=== PATIENT | female | born 1955 | race Caucasian/White ===

== ENCOUNTER 2023-05-12 14:33 | Emergency (ER) | payer OTHER, MEDICAID ==
[~2023-05-12] VITALS: Ht 170.2 cm; Wt 148.6 kg
[2023-05-12 15:25] LABS: Basophils # (auto) 0.1 10 ^3/uL (0-0.2); Basophils % (auto) 0.8 % (0.0-2.0); Eosinophils # (auto) 0.1 10 ^3/uL (0-0.8); Eosinophils % (auto) 1.5 % (0.0-7.0); Hematocrit 46.2 % (36.0-46.0); Hemoglobin 15.2 g/dL (12.2-16.2); Lymphocytes # (auto) 1.6 10 ^3/uL (0.4-5.4); Lymphocytes % (auto) 19.8 % (10.0-50.0); Mean Corpuscular Hemoglobin 29.3 pg (28.0-32.0); Mean Corpuscular Hgb Conc. 32.9 g/dL (32.0-36.0); Mean Corpuscular Volume 89.2 fL (80.0-100.0); Monocytes # (auto) 0.4 10 ^3/uL (0-1.3); Monocytes % (auto) 5.4 % (0.0-12.0); Neutrophils # (auto) 5.8 10 ^3/uL (1.6-8.6); Neutrophils % (auto) 72.5 % (37.0-80.0); Nucleated Red Blood Cells % 0.1 %; Red Blood Cells 5.19 10^6/uL (4.0-5.20); Red Cell Distribution Width 13.6 % (11.8-14.3)
[2023-05-12 16:02] LABS: Alanine Aminotransferase 17 U/L (7-40); Alkaline Phosphatase 112 U/L (46-116); Anion Gap 7 (5-15); Blood Urea Nitrogen 17 mg/dL (9-23); Calcium 9.6 mg/dL (8.7-10.4); Carbon Dioxide 26 mmol/L (20-30); Chloride 105 mmol/L (98-107); Glucose 154 mg/dL (74-106); Lipase 31 U/L (12-53); Potassium 4.1 mmol/L (3.5-5.1); Sodium 138 mmol/L (136-145)
[2023-05-12 16:03] LABS: Albumin 4.5 g/dL (3.2-4.8); Aspartate Aminotransferase 16 U/L (13-40); Bilirubin, Total 0.8 mg/dL (0.2-1.0); Total Protein 7.1 g/dL (5.7-8.2)
[2023-05-12 18:37] LABS: Urine Bacteria NONE SEEN /hpf (None Seen); Urine Blood TRACE /uL (Negative); Urine Clarity Clear (Clear); Urine Color Yellow (Yellow); Urine Mucus FEW (None Seen); Urine Protein, UAD TRACE (Negative); Urine WBC 9 /hpf (0 - 5); Urine pH 5.5 (5.0-8.0)
[2023-05-12] MEDS ORDERED: ONDANSETRON ODT 4 MG TAB PO ONE (19:00)
[2023-05-12] MEDS ORDERED: MECLIZINE HCL 25 MG TAB PO ONE (19:00)
[2023-05-12] MEDS ORDERED: MECL1TAB42 PO (19:04)
[2023-05-12] MEDS ORDERED: DILT120T8 PO (19:04)
[2023-05-12] MEDS ORDERED: ZOFR4T PO (19:04)
[2023-05-12] MEDS ORDERED: NITR-87 PO (19:04)
[2023-05-12 19:32] VITALS: BP 159/77; PULSE 79; RESP 20; TEMP 98.4; O2SAT 96
== END 2023-05-12 19:41 | disposition home or self-care (01) ==
LOC: ER 14:33
DX: I10 Essential (primary) hypertension (principal); N39.0 Urinary tract infection, site not specified; R42 Dizziness and giddiness; E11.9 Type 2 diabetes mellitus without complications
CPT/HCPCS: 36415; 71045; 80053; 81001; 83690; 83880; 84484; 85025; 93005; 99285; J8597; Q0162

== ENCOUNTER 2023-11-23 11:40 | Emergency (ER) | payer OTHER, MEDICAID ==
[~2023-11-23] VITALS: Ht 172.7 cm; Wt 155.0 kg
[~2023-11-23 11:40] MED LIST: DILT120T8 PO; MECL1TAB42 PO; NITR-87 PO; ZOFR4T PO
[2023-11-23 13:33] VITALS: BP 169/92; PULSE 90; RESP 19; TEMP 97.1; O2SAT 97
[2023-11-23] MEDS ORDERED: CEPH500C PO (13:34)
[2023-11-23] MEDS ORDERED: TRIA0.02 TOP (13:34)
== END 2023-11-23 13:37 | disposition home or self-care (01) ==
LOC: ER 11:40
DX: S90.861A Insect bite (nonvenomous), right foot, initial encounter (principal); E11.9 Type 2 diabetes mellitus without complications; I10 Essential (primary) hypertension; W57.XXXA Bitten or stung by nonvenomous insect and other nonvenomous arthropods, initial encounter; Y93.89 Activity, other specified; Y92.89 Other specified places as the place of occurrence of the external cause; Y99.8 Other external cause status

== ENCOUNTER 2024-07-27 17:27 | Emergency (ER) | payer OTHER, MEDICAID ==
[~2024-07-27] VITALS: Ht 170.2 cm; Wt 159.4 kg
[~2024-07-27 17:27] MED LIST changes: +CEPH500C PO; +TRIA0.02 TOP
--- NOTE | 2024-07-27 19:04 | ED.PDOC ---
History of Present Illness(SKN HPI Comments 69-year-old female came to the emergency room due to cellulitis. Patient states she other ground level fall last April, fell on a gravel floor and wounded both her lower extremities. Patient has already been thru several antibiotics but offered no relief. Patient still with swollen legs, erythematous with dry, crusting lesions. Patient denies any fever. Chief Complaint: Cellulitis Time Seen by MD: 19:02 Primary Care Provider: LISA History of Present Illness: Nurses Notes Allergies: Coded Allergies: Lisinopril (Verified Allergy, Severe, 03/22/16) Home Meds Active Scripts Cephalexin Monohydrate (Cephalexin) 500 Mg Cap, 1 CAP PO QID, #28 CAP Prov:MARIA C GARCIA 11/23/23 Triamcinolone Acetonide (Triamcinolone Acetonide) 0.025 % Cre, 1 APPLIC TOP BID, #30 GRAMS Prov:MARIA C GARCIA 11/23/23 Ondansetron Odt 4MG Tab (ZOFRAN PO) 4 Mg Tb, 4 MG PO Q6HP PRN, #10 TAB ODT TAB-DISSOLVE IN MOUTH, THEN SWALLOW Prov:HARPER ROTH [facility] 05/12/23 Meclizine HCl (Meclizine 25) 25 Mg Tab, 25 MG PO Q8HP PRN, #10 TAB Prov:HARPER ROTH [facility] 05/12/23 Nitrofurantoin Monohydrate Mac (Macrobid) 100 Mg Cap, 100 MG PO BID for 5 Days, #10 CAP Prov:HARPER ROTH [facility] 05/12/23 Diltiazem Hcl (Cardizem) 120 Mg Tab, 120 MG PO DAILY for 30 Days, #30 TAB Prov:HARPER ROTH 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 History Family History Family History: No family hx of Cancer, No family hx of HTN Social History Smoker: Non-Smoker Alcohol: Denies ETOH Use Drugs: Denies Drug Use Lives In: Home Constitutional: denies: chills, diaphoresis, fatigue, fever, malaise, sweats, weakness, others EENTM: denies: blurred vision, double vision, ear bleeding, ear discharge, ear drainage, ear pain, ear ringing, eye pain, eye redness, hearing loss, mouth pain, mouth swelling, nasal discharge, nose bleeding, nose congestion, nose pain, photophobia, tearing, throat pain, throat swelling, voice changes, others Respiratory: denies: cough, hemoptysis, orthopnea, SOB at rest, shortness of breath, SOB with excertion, stridor, wheezing, others Cardiovascular: denies: chest pain, dizzy spells, diaphoresis, Dyspnea on exertion, edema, irregular heart beat, left arm pain, lightheadedness, palpitations, PND, syncope, others Gastrointestinal: denies: abdomen distended, abdominal pain, blood streaked bowels, constipated, diarrhea, dysphagia, difficulty swallowing, hematemesis, melena, nausea, poor appetite, poor fluid intake, rectal bleeding, rectal pain, vomiting, others Genitourinary: denies: abnormal vagina bleeding, burning, dyspareunia, dysuria, flank pain, frequency, hematuria, incontinence, pain, , vagina discharge, urgency, others Neurological: denies: dizziness, fainting, headache, left sided numbness, left sided weakness, numbness, paresthesia, pre-existing deficit, right sided numbness, right sided weakness, seizure, speech problems, tingling, tremors, weakness, others Musculoskeletal: reports: others (Dry crusting erythematous swollen bilateral lower legs); denies: back pain, gout, joint pain, joint swelling, muscle pain, muscle stiffness, neck pain Integumetry: denies: bruises, change in color, change in hair/nails, dryness, laceration, lesions, lumps, rash, wounds, others Allergic/Immunocompromised: denies: Difficulty Healing, Frequent Infections, Hives, Itching, others Hematologic/Lymphatic: denies: anemia, blood clots, easy bleeding, easy bruising, swollen glands, others Endocrine: denies: excessive hunger, excessive sweating, excessive thirst, excessive urination, flushing, intolerance to cold, intolerance to heat, unexplained weight gain, unexplained weight loss, others Psychiatric: denies: anxiety, bipolar disorder, depression, hopeless, panic disorder, schizophrenia, sleepless, suicidal, others Physical Exam General Appearance: No Apparent Distress, Normal HEENT: Normal ENT Inspection, Pharynx Normal, TMs Normal Neck: Full Range of Motion, Non-Tender, Normal, Normal Inspection Respiratory: Chest Non-Tender, Lungs Clear, No Accessory Muscle Use, No Respiratory Distress, Normal Breath Sounds Cardiovascular: No Edema, No JVD, No Murmur, No Gallop, Normal Peripheral Pulses, Regular Rate/Rhythm Breast Exam: Deferred Gastrointestinal: No Organomegaly, Non Tender, No Pulsatile Mass, Normal Bowel Sounds, Soft Genitalia: Deferred Pelvic: Deferred Rectal: Deferred Extremities: No calf tenderness, Normal capillary refill, Normal inspection, Normal range of motion, Non-tender, No pedal edema Musculoskeletal : Apperance: Normal Neurologic: Alert, plywood layup line core layer II-XII nml as Tested, No Motor Deficits, Normal Affect, Normal Mood, No Sensory Deficits Cerebellar Function: Normal Reflexes: Normal Skin: Dry, Normal Color, Warm, Other (Dry, crusting, erythematous, swollen bilateral legs) Lymphatic: No Adenopathy Was a procedure done? Was a procedure done?: No Differential Diagnosis (INTG) Differential Diagnosis: Abscess, Cellulitis, Urticaria, Viral exanthema Abscess: Abscess, Bacteremia, Cellulitis X-Ray, Labs, Meds, VS Vital Signs Date Time Temp Pulse Resp B/P (MAP) Pulse Ox O2 Delivery O2 Flow Rate FiO2 07/27/24 20:19 97.8 96 18 191/78 (115) 100 97.8 07/27/24 18:35 98.1 108 20 197/71 (113) 96 Lab Test 07/27/24 19:21 07/27/24 17:56 Range/Units White Blood Count 9.2 4.4-10.8 10^3/uL Red Blood Count 4.49 4.0-5.20 10^6/uL Hemoglobin 13.4 12.2-16.2 g/dL Hematocrit 40.3 36.0-46.0 % Mean Corpuscular Volume 89.7 80.0-100.0 fL Mean Corpuscular Hemoglobin 29.9 28.0-32.0 pg Mean Corpuscular Hemoglobin Concent 33.3 32.0-36.0 g/dL Red Cell Distribution Width 14.7 H 11.8-14.3 % Platelet Count 223 140-450 10^3/uL Mean Platelet Volume 9.1 6.9-10.8 fL Neutrophils (%) (Auto) 70.2 37.0-80.0 % Lymphocytes (%) (Auto) 17.8 10.0-50.0 % Monocytes (%) (Auto) 7.1 0.0-12.0 % Eosinophils (%) (Auto) 4.3 0.0-7.0 % Basophils (%) (Auto) 0.6 0.0-2.0 % Neutrophils # (Auto) 6.5 1.6-8.6 10 ^3/uL Lymphocytes # (Auto) 1.6 0.4-5.4 10 ^3/uL Monocytes # (Auto) 0.6 0-1.3 10 ^3/uL Eosinophils # (Auto) 0.4 0-0.8 10 ^3/uL Basophils # (Auto) 0.1 0-0.2 10 ^3/uL Nucleated Red Blood Cells 0.1 % Sodium Level 140 136-145 mmol/L Potassium Level 4.2 3.5-5.1 mmol/L Chloride Level 106 98-107 mmol/L Carbon Dioxide Level 28 20-31 mmol/L Anion Gap 6 5-15 Blood Urea Nitrogen 18 9-23 mg/dL Creatinine 0.97 0.550-1.02 mg/dL Glomerular Filtration Rate Calc 64 >90 mL/min BUN/Creatinine Ratio 18.6 10.0-20.0 Serum Glucose 117 H 74-106 mg/dL Lactic Acid Level 1.7 0.4-2.0 mmol/L Calcium Level 10.3 8.7-10.4 mg/dL POC Glucose 103 70-106 mg/dl Time of 1ST Reevaluation: 18:49 Reevaluation 1ST: Unchanged Patient Education/Counseling: Diagnosis, Treatment Family Education/Counseling: No Family Present Departure 1 Departure Time of Disposition: 20:35 (Patient with cellulitis of the bilateral lower extremities that failed outpatient antibiotics. Patient was offered admission however she refused. We will try patient on an outpatient course of Levaquin.) Impression: Primary Impression: Cellulitis Qualified Codes: L03.119 - Cellulitis of unspecified part of limb Disposition: 01 HOME / SELF CARE / HOMELESS Condition: Stable Additional Instructions: You have cellulitis. This is a skin infection. You were prescribed antibiotics. Please take as directed. You can take tylenol and motrin as needed for pain. It is important that you follow up with your regular doctor within one week to ensure you are doing well. If your symptoms worsen or you have any other concerns then please return to the ER. e-Prescriptions Levofloxacin Hemihydrate (LEVAQUIN 500 MG) 500 Mg Tab 750 MG PO DAILY for 7 Days, #11 TAB Prov: ROSY QUINTERO MD 07/27/24 Discharged With: Self Critical Care Note Critical Care Time?: No Stability Stability form required: No Heart Score Heart Score: Heart Score Response (Comments) Value History N/A 0 EKG N/A 0 Age N/A 0 Risk Factors N/A 0 Troponin N/A 0 Total 0 I personally scribed for ROSY QUINTERO MD ([email or web address]) on 07/27/24 at 19:04. Electronically submitted by Zechariah Butt ([email or web address]). ROSY QUINTERO MD Jul 27, 2024 19:04
[2024-07-27 19:48] LABS: Basophils # (auto) 0.1 10 ^3/uL (0-0.2); Basophils % (auto) 0.6 % (0.0-2.0); Eosinophils # (auto) 0.4 10 ^3/uL (0-0.8); Eosinophils % (auto) 4.3 % (0.0-7.0); Hematocrit 40.3 % (36.0-46.0); Hemoglobin 13.4 g/dL (12.2-16.2); Lymphocytes # (auto) 1.6 10 ^3/uL (0.4-5.4); Lymphocytes % (auto) 17.8 % (10.0-50.0); Mean Corpuscular Hemoglobin 29.9 pg (28.0-32.0); Mean Corpuscular Hgb Conc. 33.3 g/dL (32.0-36.0); Mean Corpuscular Volume 89.7 fL (80.0-100.0); Monocytes # (auto) 0.6 10 ^3/uL (0-1.3); Monocytes % (auto) 7.1 % (0.0-12.0); Neutrophils # (auto) 6.5 10 ^3/uL (1.6-8.6); Neutrophils % (auto) 70.2 % (37.0-80.0); Nucleated Red Blood Cells % 0.1 %; Platelet Count (auto) 223 10^3/uL (140-450); Red Blood Cells 4.49 10^6/uL (4.0-5.20); Red Cell Distribution Width 14.7 % (11.8-14.3); White Blood Cell 9.2 10^3/uL (4.4-10.8)
[2024-07-27 19:57] LABS: Anion Gap 6 (5-15); Carbon Dioxide 28 mmol/L (20-31); Chloride 106 mmol/L (98-107); Potassium 4.2 mmol/L (3.5-5.1); Sodium 140 mmol/L (136-145)
[2024-07-27 19:58] LABS: Calcium 10.3 mg/dL (8.7-10.4)
[2024-07-27 20:03] LABS: BUN/Creatinine Ratio 18.6 (10.0-20.0); Blood Urea Nitrogen 18 mg/dL (9-23)
[2024-07-27 20:05] LABS: Glucose 117 mg/dL (74-106)
[2024-07-27 20:19] VITALS: TEMP 97.8
[2024-07-27] MEDS ORDERED: LEVO500T91 PO (20:36)
[2024-07-27] MEDS: VANCOMYCIN 1GM/250ML KIT 200 ML IV ONE (20:52)
[2024-07-27 22:12] VITALS: BP 166/82; PULSE 81; RESP 20; O2SAT 97
== END 2024-07-27 22:20 | disposition home or self-care (01) ==
LOC: ER 17:27
DX: L03.116 Cellulitis of left lower limb (principal); L03.115 Cellulitis of right lower limb; I10 Essential (primary) hypertension; E66.01 Morbid (severe) obesity due to excess calories; Z68.43 Body mass index [BMI] 50.0-59.9, adult; Z79.899 Other long term (current) drug therapy; Z88.8 Allergy status to other drugs, medicaments and biological substances; Z90.49 Acquired absence of other specified parts of digestive tract
CPT/HCPCS: 36415; 80048; 82962; 83605; 85025; 87040; 96365; 99284; J3370

== ENCOUNTER 2024-08-02 10:57 | Inpatient (IN) | payer OTHER, MEDICAID ==
[~2024-08-02] VITALS: Ht 170.2 cm; Wt 161.9 kg
[~2024-08-02 10:57] MED LIST changes: +LEVO500T91 PO
--- NOTE | 2024-08-02 11:35 | ED.PDOC ---
History of Present Illness HPI Comments 69F presents to the ER w/ no prior Hx associated to the c/c of a wound check. Pt reports that she was here last Monday for the left leg and was given oral antibiotics and states that it is not working. Pt notes of a pain type of a 3/10 and has tried 3 courses of oral antibiotics. Pt has redness w/ swelling and drainage around the tib fib area. PMHx of HTN and Anxiety. SHx of Appendectomy and . Family Hx of HTN. Denies chills, fever, N/V/D, SOB, CP or other associated symptom's, modifiers, or recent injuries or sick contact at this time. Chief Complaint: Wound Check Time Seen by MD: 11:20 Primary Care Provider: LISA Araiza Notes: Nurses Notes, Medications, Allergies Allergies: Coded Allergies: Lisinopril (Verified Allergy, Severe, 03/22/16) Home Meds Active Scripts Levofloxacin Hemihydrate (LEVAQUIN 500 MG) 500 Mg Tab, 750 MG PO DAILY for 7 Days, #11 TAB Prov:ROSY QUINTERO MD 07/27/24 Cephalexin Monohydrate (Cephalexin) 500 Mg Cap, 1 CAP PO QID, #28 CAP Prov:MARIA C GARCIA 11/23/23 Triamcinolone Acetonide (Triamcinolone Acetonide) 0.025 % Cre, 1 APPLIC TOP BID, #30 GRAMS Prov:MARIA C GARCIA 11/23/23 Ondansetron Odt 4MG Tab (ZOFRAN PO) 4 Mg Tb, 4 MG PO Q6HP PRN, #10 TAB ODT TAB-DISSOLVE IN MOUTH, THEN SWALLOW Prov:HARPER ROTH 05/12/23 Meclizine HCl (Meclizine 25) 25 Mg Tab, 25 MG PO Q8HP PRN, #10 TAB Prov:HARPER ROTH 05/12/23 Nitrofurantoin Monohydrate Mac (Macrobid) 100 Mg Cap, 100 MG PO BID for 5 Days, #10 CAP Prov:HARPER ROTH 05/12/23 Diltiazem Hcl (Cardizem) 120 Mg Tab, 120 MG PO DAILY for 30 Days, #30 TAB Prov:HARPER ROTH 05/12/23 Information Source: Patient Mode of Arrival: Ambulatory Severity: Moderate Timing: Weeks Duration: Since onset Prehospital treatment: None Past Medical History PAST MEDICAL HISTORY: Anxiety, HTN Surgical History: Appendectomy, 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 Family History Family History: Family hx of HTN Social History Smoker: Non-Smoker Alcohol: Denies ETOH Use Drugs: Denies Drug Use Lives In: Home Constitutional: denies: chills, diaphoresis, fatigue, fever, malaise, sweats, weakness, others EENTM: denies: blurred vision, double vision, ear bleeding, ear discharge, ear drainage, ear pain, ear ringing, eye pain, eye redness, hearing loss, mouth pain, mouth swelling, nasal discharge, nose bleeding, nose congestion, nose pain, photophobia, tearing, throat pain, throat swelling, voice changes, others Respiratory: denies: cough, hemoptysis, orthopnea, SOB at rest, shortness of breath, SOB with excertion, stridor, wheezing, others Cardiovascular: denies: chest pain, dizzy spells, diaphoresis, Dyspnea on exertion, edema, irregular heart beat, left arm pain, lightheadedness, palpitations, PND, syncope, others Gastrointestinal: denies: abdomen distended, abdominal pain, blood streaked bowels, constipated, diarrhea, dysphagia, difficulty swallowing, hematemesis, melena, nausea, poor appetite, poor fluid intake, rectal bleeding, rectal pain, vomiting, others Genitourinary: denies: abnormal vagina bleeding, burning, dyspareunia, dysuria, flank pain, frequency, hematuria, incontinence, pain, , vagina d ischarge, urgency, others Neurological: denies: dizziness, fainting, headache, left sided numbness, left sided weakness, numbness, paresthesia, pre-existing deficit, right sided numbness, right sided weakness, seizure, speech problems, tingling, tremors, weakness, others Musculoskeletal: denies: back pain, gout, joint pain, joint swelling, muscle pain, muscle stiffness, neck pain, others Integumetry: reports: change in color, dryness, wounds; denies: bruises, change in hair/nails, laceration, lesions, lumps, rash, others Allergic/Immunocompromised: denies: Difficulty Healing, Frequent Infections, Hives, Itching, others Hematologic/Lymphatic: denies: anemia, blood clots, easy bleeding, easy bruising, swollen glands, others Endocrine: denies: excessive hunger, excessive sweating, excessive thirst, excessive urination, flushing, intolerance to cold, intolerance to heat, unexplained weight gain, unexplained weight loss, others Psychiatric: denies: anxiety, bipolar disorder, depression, hopeless, panic disorder, schizophrenia, sleepless, suicidal, others All Other Systems: Reviewed and Negative Physical Exam General Appearance: Moderate Distress HEENT: Normal ENT Inspection, Pharynx Normal, TMs Normal Neck: Full Range of Motion, Non-Tender, Normal, Normal Inspection Respiratory: Chest Non-Tender, Lungs Clear, No Accessory Muscle Use, No Respiratory Distress, Normal Breath Sounds Cardiovascular: No Edema, No JVD, No Murmur, No Gallop, Normal Peripheral Pulses, Regular Rate/Rhythm Breast Exam: Deferred Gastrointestinal: No Organomegaly, Non Tender, No Pulsatile Mass, Normal Bowel Sounds, Soft Genitalia: Deferred Pelvic: Deferred Rectal: Deferred Extremities: No calf tenderness, Normal capillary refill, No pedal edema, Swelling, Tender (Left lower extremity with redness and drainage) Musculoskeletal : Apperance: Normal Neurologic: Alert, collar tailor II-XII nml as Tested, No Motor Deficits, Normal Affect, Normal Mood, No Sensory Deficits Cerebellar Function: Normal Reflexes: Normal Skin: Dry, Normal Color, Warm Lymphatic: No Adenopathy Was a procedure done? Was a procedure done?: No Differential Dx Considerations may include: Cellulitis, osteomyelitis X-Ray, Labs, Meds, VS Vital Signs Date Time Temp Pulse Resp B/P (MAP) Pulse Ox O2 Delivery O2 Flow Rate FiO2 08/02/24 15:54 109 18 97 Room Air* 0 21 08/02/24 15:15 95 18 97 Room Air 08/02/24 15:15 98.2 95 18 154/79 (104) 97 98.2 08/02/24 11:13 97.9 109 20 187/76 (113) 97 Lab Test 08/02/24 12:03 Range/Units White Blood Count 8.1 4.4-10.8 10^3/uL Red Blood Count 4.45 4.0-5.20 10^6/uL Hemoglobin 13.1 12.2-16.2 g/dL Hematocrit 39.5 36.0-46.0 % Mean Corpuscular Volume 88.7 80.0-100.0 fL Mean Corpuscular Hemoglobin 29.4 28.0-32.0 pg Mean Corpuscular Hemoglobin Concent 33.2 32.0-36.0 g/dL Red Cell Distribution Width 14.8 H 11.8-14.3 % Platelet Count 231 140-450 10^3/uL Mean Platelet Volume 9.1 6.9-10.8 fL Neutrophils (%) (Auto) 72.1 37.0-80.0 % Lymphocytes (%) (Auto) 16.2 10.0-50.0 % Monocytes (%) (Auto) 7.1 0.0-12.0 % Eosinophils (%) (Auto) 3.9 0.0-7.0 % Basophils (%) (Auto) 0.7 0.0-2.0 % Neutrophils # (Auto) 5.8 1.6-8.6 10 ^3/uL Lymphocytes # (Auto) 1.3 0.4-5.4 10 ^3/uL Monocytes # (Auto) 0.6 0-1.3 10 ^3/uL Eosinophils # (Auto) 0.3 0-0.8 10 ^3/uL Basophils # (Auto) 0.1 0-0.2 10 ^3/uL Nucleated Red Blood Cells 0.0 % Erythrocyte Sedimentation Rate 32 H 0-20 mm/hr Sodium Level 140 136-145 mmol/L Potassium Level 3.7 3.5-5.1 mmol/L Chloride Level 106 98-107 mmol/L Carbon Dioxide Level 27 20-31 mmol/L Anion Gap 7 5-15 Blood Urea Nitrogen 19 9-23 mg/dL Creatinine 1.00 0.550-1.02 mg/dL Glomerular Filtration Rate Calc 62 >90 mL/min BUN/Creatinine Ratio 19.0 10.0-20.0 Serum Glucose 113 H 74-106 mg/dL Calcium Level 9.6 8.7-10.4 mg/dL CLINICAL INDICATION: 69 years old, Female; infection. IMPRESSION: 1. Diffuse circumferential soft tissue edema which may reflect cellulitis. No fluid collection. 2. No fracture or dislocation. No CT evidence of osteomyelitis. All CT scans at this medical facility are performed using dose modulation techniques as appropriate to a performed exam including the following: Automated exposure control was utilized; adjustment of the MA and/or KV according to patient size; and use of iterative reconstruction technique. The patient was being admitted at this time The patient's CBC is within normal limits The chemistry panel is within normal limits The sed rate is 32 which is elevated Images Reviewed?: Images reviewed and evaluated by me Time of 1ST Reevaluation: 11:50 Reevaluation 1ST: Unchanged Patient Education/Counseling: Diagnosis, Treatment, Prognosis Family Education/Counseling: No Family Present Departure 1 Departure Time of Disposition: 17:02 Impression: Primary Impression: Cellulitis of left leg Disposition: ADMITTED INPATIENT Admit to: Med Surg Condition: Fair Critical Care Note Critical Care Time?: No Stability Stability form required: No Heart Score Heart Score: Heart Score Response (Comments) Value History N/A 0 EKG N/A 0 Age N/A 0 Risk Factors N/A 0 Troponin N/A 0 Total 0 I personally scribed for LUC LOPEZ MD ([email or web address]) on 08/02/24 at 11:35. Electronically submitted by Gerardo Jose ([employer] I personally scribed for LUC LOPEZ MD ([email or web address]) on 08/02/24 at 12:43. Electronically submitted by Gerardo Jose ([employer] I personally scribed for LUC LOPEZ MD ([email or web address]) on 08/02/24 at 13:05. Electronically submitted by Gerardo Jose ([employer] LUC LOPEZ MD Aug 02, 2024 11:35
--- NOTE | 2024-08-02 12:05 | DVH ---
CLINICAL INDICATION: 69 years old, Female; infection. TECHNIQUE: Noncontrast CT of the left tibia/ fibula was performed. Sagittal and coronal reformatted i mages are provided. COMPARISON: None CT Dose: CTDI volume is 8.9 mGy. Dose-length product is 385.4 mGy*cm FINDINGS: No fracture or dislocation. Diffuse circumferential subcutaneous edema. No fluid collection. No perio steal reaction. No cortical destruction. Tricompartment osteophytes. IMPRESSION: 1. Diffuse circumferential soft tissue edema which may reflect cellulitis. No fluid collection. 2. No fracture or dislocation. No CT evidence of osteomyelitis. All CT scans at this medical facility are performed using dose modulation techniques as appropriate t o a performed exam including the following: Automated exposure control was utilized; adjustment of th e MA and/or KV according to patient size; and use of iterative reconstruction technique.
[2024-08-02 12:43] LABS: Chloride 106 mmol/L (98-107); Potassium 3.7 mmol/L (3.5-5.1); Sodium 140 mmol/L (136-145)
[2024-08-02 12:44] LABS: Anion Gap 7 (5-15); Calcium 9.6 mg/dL (8.7-10.4); Carbon Dioxide 27 mmol/L (20-31)
[2024-08-02 12:46] LABS: Basophils # (auto) 0.1 10 ^3/uL (0-0.2); Basophils % (auto) 0.7 % (0.0-2.0); Eosinophils # (auto) 0.3 10 ^3/uL (0-0.8); Eosinophils % (auto) 3.9 % (0.0-7.0); Hematocrit 39.5 % (36.0-46.0); Hemoglobin 13.1 g/dL (12.2-16.2); Lymphocytes # (auto) 1.3 10 ^3/uL (0.4-5.4); Lymphocytes % (auto) 16.2 % (10.0-50.0); Mean Corpuscular Hemoglobin 29.4 pg (28.0-32.0); Mean Corpuscular Hgb Conc. 33.2 g/dL (32.0-36.0); Mean Corpuscular Volume 88.7 fL (80.0-100.0); Monocytes # (auto) 0.6 10 ^3/uL (0-1.3); Monocytes % (auto) 7.1 % (0.0-12.0); Neutrophils # (auto) 5.8 10 ^3/uL (1.6-8.6); Neutrophils % (auto) 72.1 % (37.0-80.0); Platelet Count (auto) 231 10^3/uL (140-450); Red Blood Cells 4.45 10^6/uL (4.0-5.20); Red Cell Distribution Width 14.8 % (11.8-14.3); White Blood Cell 8.1 10^3/uL (4.4-10.8)
[2024-08-02 12:49] LABS: Blood Urea Nitrogen 19 mg/dL (9-23)
[2024-08-02 12:52] LABS: Glucose 113 mg/dL (74-106)
[2024-08-02 13:29] LABS: Erythrocyte Sedimentation Rate 32 mm/hr (0-20)
[2024-08-02 15:54] VITALS: PULSE 109; RESP 18; O2SAT 97
[2024-08-02] MEDS ORDERED: ACETAMINOPHEN 325 MG TAB PO PRN (16:45)
[2024-08-02] MEDS ORDERED: ONDANSETRON HCL 4 MG/2 ML VIAL IV PRN (16:45)
[2024-08-02] MEDS ORDERED: CLINDAMYCIN 600MG IV 50 ML IV ONE (16:45)
--- NOTE | 2024-08-02 16:54 | DVHHP2 ---
History of Present Illness Reason for Visit: Left lower extremity pain and swelling History of Present Illness Aamir Carrasco is a 69-year-old female with past medical history of hypertension, anxiety, morbid obesity, appendectomy, , and left wrist surgery who presents to the ED for left lower extremity pain and swelling. Patient reports that she was here at [facility] on Monday and received antibiotics with no relief. Patient is back here for an evaluation. Patient has reports that there were some blisters on her left lower extremity and would like to get that e valuated. Patient denies any chest pain, shortness of breath, fever, chills, lightheadedness, weakness, paresthesia, abdominal pain, recent trauma or injury to the side, nausea, vomiting, and diarrhea. Cardiovascular: HTN Psych: Anxiety Past Surgical History: Appendectomy, , Other (Left wrist surgery) Family History: Hypertension, Other (Mom with emphysema and dad with heart attack, hypertension, and COVID) Smoke: No ALCOHOL: none Drugs: None Lives: with Family Domestic Violence: Neg Review of Systems Constitutional: No: Fever, Chills, Sweats, Weakness, Malaise, Other Eyes: No: Pain, Vision change, Conjunctivae inflammation, Eyelid inflammation, Other, Redness ENT: No: Ear pain, Ear discharge, Nose pain, Nose discharge, Nose congestion, Mouth pain, Mouth swelling, Throat pain, Throat swelling, Other Respiratory: No: Cough, Dry, Shortness of breath, SOB with excertion, Wheezing, Hemoptysis, Pleuritic Pain, Sputum, Wheezing, Other Cardiovascular: No: Chest Pain, Palpitations, Orthopnea, Paroxysmal Noc. Dyspnea, Edema, Lt Headedness, Other Gastrointestinal: No: Nausea, Vomiting, Abdominal Pain, Diarrhea, Constipation, Melena, Hematochezia, Other Genitourinary: No Dysuria, No Frequency, No Incontinence, No Hematuria, No Retention, No Other Musculoskeletal: leg pain; No: other, neck pain, shoulder pain, arm pain, back pain, hand pain, foot pain Skin: Other (Erythema left lower extremity) Neurological: No: Weakness, Numbness, Incoordination, Change in speech, C onfusion, Seizures, Other Allergies: Coded Allergies: Lisinopril (Verified Allergy, Severe, 03/22/16) Exam Vital Signs Vital Signs Date Time Temp Pulse Resp B/P (MAP) Pulse Ox O2 Delivery O2 Flow Rate FiO2 08/02/24 15:15 95 18 97 Room Air 08/02/24 15:15 98.2 154/79 (104) 98.2 General Appearance: Alert, Oriented X3, Cooperative, No acute distress HEENT: Atraumatic, PERRLA, EOMI, Mucous membr. moist/pink Respiratory: Clear to auscultation, Normal air movement Cardiovascular: Normal S1, Normal S2, No murmurs Abdominal: Normal bowel sounds, Soft, No tenderness, No hepatospenomegaly, No masses Extremities: No cyanosis Neuro: Normal gait, Normal speech, Strength at 5/5 X4 ext, Normal tone, Sensation intact Psych/Mental Status: Mental status NL, Mood NL Labs/Xrays Labs Test 08/02/24 12:03 Range/Units White Blood Count 8.1 4.4-10.8 10^3/uL Red Blood Count 4.45 4.0-5.20 10^6/uL Hemoglobin 13.1 12.2-16.2 g/dL Hematocrit 39.5 36.0-46.0 % Mean Corpuscular Volume 88.7 80.0-100.0 fL Mean Corpuscular Hemoglobin 29.4 28.0-32.0 pg Mean Corpuscular Hemoglobin Concent 33.2 32.0-36.0 g/dL Red Cell Distribution Width 14.8 H 11.8-14.3 % Platelet Count 231 140-450 10^3/uL Mean Platelet Volume 9.1 6.9-10.8 fL Neutrophils (%) (Auto) 72.1 37.0-80.0 % Lymphocytes (%) (Auto) 16.2 10.0-50.0 % Monocytes (%) (Auto) 7.1 0.0-12.0 % Eosinophils (%) (Auto) 3.9 0.0-7.0 % Basophils (%) (Auto) 0.7 0.0-2.0 % Neutrophils # (Auto) 5.8 1.6-8.6 10 ^3/uL Lymphocytes # (Auto) 1.3 0.4-5.4 10 ^3/uL Monocytes # (Auto) 0.6 0-1.3 10 ^3/uL Eosinophils # (Auto) 0.3 0-0.8 10 ^3/uL Basophils # (Auto) 0.1 0-0.2 10 ^3/uL Nucleated Red Blood Cells 0.0 % Erythrocyte Sedimentation Rate 32 H 0-20 mm/hr Sodium Level 140 136-145 mmol/L Potassium Level 3.7 3.5-5.1 mmol/L Chloride Level 106 98-107 mmol/L Carbon Dioxide Level 27 20-31 mmol/L Anion Gap 7 5-15 Blood Urea Nitrogen 19 9-23 mg/dL Creatinine 1.00 0.550-1.02 mg/dL Glomerular Filtration Rate Calc 62 >90 mL/min BUN/Creatinine Ratio 19.0 10.0-20.0 Serum Glucose 113 H 74-106 mg/dL Calcium Level 9.6 8.7-10.4 mg/dL CLINICAL INDICATION: 69 years old, Female; infection. TECHNIQUE: Noncontrast CT of the left tibia/ fibula was performed. Sagittal and coronal reformatted images are provided. COMPARISON: None CT Dose: CTDI volume is 8.9 mGy. Dose-length product is 385.4 mGy*cm FINDINGS: No fracture or dislocation. Diffuse circumferential subcutaneous edema. No fluid collection. No periosteal reaction. No cortical destruction. Tricompartment osteophytes. IMPRESSION: 1. Diffuse circumferential soft tissue edema which may reflect cellulitis. No fluid collection. 2. No fracture or dislocation. No CT evidence of osteomyelitis. Assessment/Plan Assessment/Plan Assessment/Plan: Left lower extremity cellulitis Labs CT left tib-fib ESR Wound culture IV antibiotics-clindamycin plus Zosyn Ultrasound left lower extremity A.m. labs Chronic hypertension Continue home medications Chronic anxiety Follow up outpatient with PCP Morbid obesity Counseled patient on lifestyle modifications, diet, and exercise FEN/PPX Diet Hep-Lock DVT prophylaxis-Lovenox PD prophylaxis-not indicated no history of GERD or GI bleed Home medications reconciled Admit patient to med surge Discussed plan of care with patient and nurse Plan discussed with: Patient My Orders Orders - THU FERNANDEZ [employer] Procedure Category Date Status Time Clindamycin Ivpb PHA 08/02/24 Transmitted [place] 22:00 Clindamycin Ivpb PHA 08/02/24 Transmitted [place] 16:45 Wound Culture W/ Gs LAURA 08/02/24 Logged 16:41 Lt Lower Dvt US 08/02/24 Transmitted 16:41 Admit ADMIT 08/02/24 Transmitted 16:41 Allergies ALBERTINA 08/02/24 Transmitted 16:41 Code Status CODE 08/02/24 Transmitted 16:41 Hydrocodone-Acet PHA 08/02/24 Transmitted 5/325mg Tab ([place] 16:45 Ondansetron Hcl PHA 08/02/24 Transmitted (Zofran) 16:45 Enoxaparin Sodium PHA 08/03/24 Transmitted (Lovenox) 10:00 Complete Blood Count LAB 08/03/24 Verified 04:00 Comprehensive LAB 08/03/24 Verified Metabolic Panel 04:00 Cardiac DIET 08/02/24 Transmitted Diet-2gna,Lofat,Lochol Dinner Acetaminophen Tablet PHA 08/02/24 Transmitted (Tylenol Tablet) 16:45 Date of Service: Aug 02, 2024 Billing Provider: THU FERNANDEZ Common Visit Codes: [id number] INP/OBS CARE (HIGH) THU FERNANDEZ Aug 02, 2024 16:54
[2024-08-02] MEDS ORDERED: PIPERACILLIN-TAZOB 3.375GM 100 ML IV ONE (17:00)
--- NOTE | 2024-08-02 17:46 | DVH ---
EXAM: US Duplex Left Lower Extremity Veins CLINICAL INDICATION: r/o dvt LLE TECHNIQUE: Real-time duplex ultrasound scan of the left lower extremity veins integrating B-mode two -dimensional vascular structure, Doppler spectral analysis, color flow Doppler imaging and compressio n. COMPARISON: None FINDINGS: DEEP VEINS: Unremarkable. No DVT in the visualized common femoral, femoral, proximal deep femoral o r popliteal veins. The veins demonstrate normal color flow, are normally compressible, with normal p hasic flow and/or augmentation response. SUPERFICIAL VEINS: Unremarkable. No thrombus in the visualized great saphenous vein. SOFT TISSUES: No acute findings. No popliteal cyst. OTHER FINDINGS: . . . IMPRESSION: No DVT. HS:Y
[2024-08-02] MEDS ORDERED: LOSA-535 PO (20:35)
[2024-08-02] MEDS ORDERED: NAP500T PO (20:35)
[2024-08-02 21:00] VITALS: BP 150/75; PULSE 90; RESP 19; TEMP 97.9; O2SAT 93
[2024-08-02] MEDS: CLINDAMYCIN 600MG IV 50 ML IV SCH (22:25)
[2024-08-02] MEDS: HYDROcodone-ACET 5/325MG TAB PO PRN (23:14)
[2024-08-03 01:00] VITALS: BP 137/69; PULSE 85; RESP 19; TEMP 97.9; O2SAT 93
[2024-08-03] MEDS: PIPERACILLIN-TAZOB 3.375GM 100 ML IV SCH (01:14)
[2024-08-03 08:00] VITALS: BP 138/59; PULSE 71; PULSE 80; RESP 20; TEMP 97.1; O2SAT 96; O2SAT 98
[2024-08-03] MEDS: ENOXAPARIN SOD 40 MG/0.4 ML SYRINGE SC SCH (09:18)
--- NOTE | 2024-08-03 11:59 | DVHPN2 ---
Reviewed: Care Plan, H&P, Labs, Medications, Previous Orders, Radiology Changes from previous H/P or p: No Changes Eyes: No Pain, No Vision change, No Conjunctivae inflammation, No Eyelid inflammation, No Other, No Redness ENT: No Ear pain, No Ear discharge, No Nose pain, No Nose discharge, No Nose congestion, No Mouth pain, No Mouth swelling, No Throat pain, No Throat swelling, No Other Cardiovascular: No Chest Pain, No Palpitations, No Orthopnea, No Paroxysmal Noc. Dyspnea, No Edema, No Lt Headedness, No Other Respiratory: No Cough, No Dry, No Shortness of breath, No SOB with excertion, No Wheezing, No Hemoptysis, No Pleuritic Pain, No Sputum, No Other Gastrointestinal: No Nausea, No Vomiting, No Abdominal Pain, No Diarrhea, No Constipation, No Melena, No Hematochezia, No Other Genitourinary: No Dysuria, No Frequency, No Incontinence, No Hematuria, No Retention, No Other Musculoskeletal: No other, No neck pain, No shoulder pain, No arm pain, No back pain, No hand pain; leg pain; No foot pain Skin: Other (Erythema left lower extremity) Objective Vitals Vital Signs Date Time Temp Pulse Resp B/P (MAP) Pulse Ox O2 Delivery O2 Flow Rate FiO2 08/03/24 08:00 80 20 96 Room Air* 0 21 08/03/24 08:00 97.1 138/59 (85) 97.1 Intake/Output Intake and Output 08/03/24 07:00 Intake Total 450 ml Balance 450 ml Intake Oral 300 ml IV Total 150 ml # Voids 4 Medications Current Medications Medications Dose Ordered Sig/Romaine Route Start Time Stop Time Status Last Admin Dose Admin Clindamycin Phosphate 50 ml @ 50 mls/hr Q8H IV 08/02/24 23:00 08/03/24 06:03 50 MLS/HR Acetaminophen/ Hydrocodone Bitart 1 tab Q4HP PRN PO 08/02/24 16:45 08/02/24 23:14 1 TAB Ondansetron HCl 4 mg Q4HP PRN IV 08/02/24 16:45 Enoxaparin Sodium 40 mg DAILY SC 08/03/24 10:00 08/03/24 09:18 40 MG Acetaminophen 650 mg Q6HP PRN PO 08/02/24 16:45 Piperacillin Sod/ Tazobactam Sod 100 ml @ 25 mls/hr Q8H IV 08/03/24 00:00 08/03/24 09:17 25 MLS/HR Laboratory Results Laboratory Tests 08/02/24 12:03 Chemistry Test 08/02/24 12:03 Calcium Level 9.6 mg/dL (8.7-10.4) Labs and/or images reviewed: Labs reviewed by me, Image(s) reviewed by me Assessment/Plan Assessment/Plan Severe cellulitis bilateral lower extremities : Blood cultures continue Zosyn clindamycin Hypertension: Lisinopril Morbid obesity BMI of 55 Anxiety Depression with recurrent episodes of crying: Tele psych consult PICC line consult Noncompliance DVT ruled out Osteomyelitis left lower extremity ruled out Time spent 50 minutes SHAYLA Ames at bedside Plan discussed with: Patient My Orders Orders - NICOLE MIRELES MD Procedure Category Date Status Time * Picc Line Consult CONS 08/03/24 Transmitted 11:55 *Tele Psych Consult CONS 08/03/24 Transmitted 11:55 Date of Service: Aug 03, 2024 Billing Provider: NICOLE MIRELES MD Common Visit Codes: [id number] INP/OBS CARE(HIGH) Secondary Visit Codes: [id number] CARE PLAN 30 MINUTES NICOLE MIRELES MD Aug 03, 2024 11:58
[2024-08-03 12:00] VITALS: BP 145/78; PULSE 86; RESP 19; TEMP 97.6; O2SAT 95
--- NOTE | 2024-08-03 13:17 | DVH ---
Bilateral Lower Extremity Arterial Duplex Clinical History: Severe cellulitis ruled out peripheral arterial disease Comparison: None Technique: Duplex doppler evaluation including color doppler and spectral/pulsed waveform analysis of the lower extremity arteries was performed. Findings: 1. Right lower extremity dorsalis pedis not visualized secondary to wound dressing. Monophasic flow s een in the left lower extremity at the level of the posterior tibial and dorsalis pedis arteries. 2. Technically difficult study secondary to edema and patient body habitus. 3. Triphasic flow forms from the common femoral to the popliteal arteries bilaterally. Monophasic wav eforms below the knees bilaterally. 4. Impression: 5. Limited exam which is technically difficult. 6. Monophasic flow wave forms below the knee.
--- NOTE | 2024-08-03 14:03 | DVHINCON2 ---
Date of service: Aug 03, [address] Edis Gold Reason for Consultation Medication management and disposition. History of Present Illness Chief complaint: "I fell down and I have sores on my leg". History of present illness: This is a 69 year female who was seen for evalu ation via telepsychiatry. Patient reported that she has been feeling depressed. Patient reported having trouble sleeping, energy level low and she feels hopeless and worthless. She denied any loss of interest, has no trouble concentrating and her appetite is good. She denied any suicidal or homicidal ideation. She denied any auditory or visual hallucination. He reported that she feels paranoid. Past psychiatric history: Patient denied any previous inpatient psychiatric hospitalization. She has never been treated for any psychiatric illness in the past. She denied any Suicide attempts in the past. Past Medical History As per history Past Surgical History As per history and physical Family History: Patient reports no known family medical history. Family History She reported that her daughters have ADHD. Social History Patient is and has two daughters. 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 Substance use: Denied Allergies: Coded Allergies: Lisinopril (Verified Allergy, Severe, 03/22/16) Home Meds Active Scripts Levofloxacin Hemihydrate (LEVAQUIN 500 MG) 500 Mg Tab, 750 MG PO DAILY for 7 Days, #11 TAB Prov:ROSY QUINTERO MD 07/27/24 Reported Medications Naproxen (NAPROSYN TABLET) 500 Mg Tb, 1 TAB PO BID, #60 TAB 1 Refill 08/02/24 Losartan Potassium (Losartan Potassium) 100 Mg Tab, 1 TAB PO DAILY, #30 TAB 5 Refills 08/02/24 Current Medications Current Medications Medications (Trade) Dose Ordered Sig/Romaine Route PRN Reason Start Time Stop Time Status Last Admin Clindamycin Phosphate 50 ml @ 50 mls/hr Q8H IV 08/02/24 23:00 08/03/24 06:03 Acetaminophen/ Hydrocodone Bitart ([place] 5/325MG Tab) 1 tab Q4HP PRN PO MODERATE PAIN (4-6 PAIN SCALE) 08/02/24 16:45 08/02/24 23:14 Ondansetron HCl (Zofran) 4 mg Q4HP PRN IV NAUSEA / VOMITING 08/02/24 16:45 Enoxaparin Sodium (Lovenox) 40 mg DAILY SC 1/25/25 10:00 08/03/24 09:18 Acetaminophen (Tylenol Tablet) 650 mg Q6HP PRN PO PAIN SCALE 1-3 OR TEMP>100.4 08/02/24 16:45 Piperacillin Sod/ Tazobactam Sod 100 ml @ 25 mls/hr Q8H IV 08/03/24 00:00 08/03/24 09:17 Review of Systems Review of systems is negative except HPI. Vital Signs Vital Signs Date Time Temp Pulse Resp B/P (MAP) Pulse Ox O2 Delivery O2 Flow Rate FiO2 08/03/24 08:00 80 20 96 Room Air* 0 21 08/03/24 08:00 97.1 138/59 (85) 97.1 Physical Exam Mental status examination: This is a 69 year female who appears to be of her stated age. Her grooming is fair. Patient was calm and cooperative. Her speec h is regular in rate and rhythm. She described her mood as "I felt good until I got a bad news" and her affect is restricted. She denied any suicidal or homicidal ideation. She denied any auditory or visual hallucination. Her thought process is linear. She is oriented to time, place and person. Her attention and concentration is intact. Her memory and language intact. Her j udgment and insight is limited. Her impulse control is limited. Her fund of knowledge is intact. Labs/Diagnostic Data Labs Test 08/02/24 12:03 Range/Units White Blood Count 8.1 4.4-10.8 10^3/uL Red Blood Count 4.45 4.0-5.20 10^6/uL Hemoglobin 13.1 12.2-16.2 g/dL Hematocrit 39.5 36.0-46.0 % Mean Corpuscular Volume 88.7 80.0-100.0 fL Mean Corpuscular Hemoglobin 29.4 28.0-32.0 pg Mean Corpuscular Hemoglobin Concent 33.2 32.0-36.0 g/dL Red Cell Distribution Width 14.8 H 11.8-14.3 % Platelet Count 231 140-450 10^3/uL Mean Platelet Volume 9.1 6.9-10.8 fL Neutrophils (%) (Auto) 72.1 37.0-80.0 % Lymphocytes (%) (Auto) 16.2 10.0-50.0 % Monocytes (%) (Auto) 7.1 0.0-12.0 % Eosinophils (%) (Auto) 3.9 0.0-7.0 % Basophils (%) (Auto) 0.7 0.0-2.0 % Neutrophils # (Auto) 5.8 1.6-8.6 10 ^3/uL Lymphocytes # (Auto) 1.3 0.4-5.4 10 ^3/uL Monocytes # (Auto) 0.6 0-1.3 10 ^3/uL Eosinophils # (Auto) 0.3 0-0.8 10 ^3/uL Basophils # (Auto) 0.1 0-0.2 10 ^3/uL Nucleated Red Blood Cells 0.0 % Erythrocyte Sedimentation Rate 32 H 0-20 mm/hr Sodium Level 140 136-145 mmol/L Potassium Level 3.7 3.5-5.1 mmol/L Chloride Level 106 98-107 mmol/L Carbon Dioxide Level 27 20-31 mmol/L Anion Gap 7 5-15 Blood Urea Nitrogen 19 9-23 mg/dL Creatinine 1.00 0.550-1.02 mg/dL Glomerular Filtration Rate Calc 62 >90 mL/min BUN/Creatinine Ratio 19.0 10.0-20.0 Serum Glucose 113 H 74-106 mg/dL Calcium Level 9.6 8.7-10.4 mg/dL Assessment 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 Plan/Recommendation Patient does not warrant a 5150 hold and I will recommend that she may benefit from individual therapy. Patient can follow up with outpatient psychiatric level of care. Patient is not willing to take any psychotropic medication so I will not start any medication. Care was coordinated with the patient and her RN. Plan discussed with: Patient DIANA MENDOZA MD Aug 03, 2024 14:03
[2024-08-03 16:00] VITALS: BP 159/63; PULSE 78; RESP 19; TEMP 97.5; O2SAT 95
[2024-08-03 20:00] VITALS: PULSE 80
[2024-08-03 21:00] VITALS: BP 120/79; PULSE 86; RESP 20; TEMP 98.4; O2SAT 97
[2024-08-04] VITALS (7 sets, daily range): BP systolic 104–156; BP diastolic 55–88; PULSE 73–86; RESP 16–20; TEMP 97.9–99.1; O2SAT 93–97
[2024-08-04 07:13] LABS: Partial Thromboplastin Time 29.6 SEC (24.5-34.5); Prothrombin Time 10.6 sec (9.3-11.8)
[2024-08-04] MEDS ORDERED: LOSA-533 PO (09:03)
--- NOTE | 2024-08-04 12:43 | DVHPN2 ---
Reviewed: Care Plan, H&P, Labs, Medications, Previous Orders, Radiology Changes from previous H/P or p: No Changes Eyes: No Pain, No Vision change, No Conjunctivae inflammation, No Eyelid inflammation, No Other, No Redness ENT: No Ear pain, No Ear discharge, No Nose pain, No Nose discharge, No Nose congestion, No Mouth pain, No Mouth swelling, No Throat pain, No Throat swelling, No Other Cardiovascular: No Chest Pain, No Palpitations, No Orthopnea, No Paroxysmal Noc. Dyspnea, No Edema, No Lt Headedness, No Other Respiratory: No Cough, No Dry, No Shortness of breath, No SOB with excertion, No Wheezing, No Hemoptysis, No Pleuritic Pain, No Sputum, No Other Gastrointestinal: No Nausea, No Vomiting, No Abdominal Pain, No Diarrhea, No Constipation, No Melena, No Hematochezia, No Other Genitourinary: No Dysuria, No Frequency, No Incontinence, No Hematuria, No Retention, No Other Musculoskeletal: No other, No neck pain, No shoulder pain, No arm pain, No back pain, No hand pain; leg pain; No foot pain Skin: Other (Erythema left lower extremity) Objective Vitals Vital Signs Date Time Temp Pulse Resp B/P (MAP) Pulse Ox O2 Delivery O2 Flow Rate FiO2 08/04/24 09:00 97.9 85 18 146/64 (91) 97 97.9 08/04/24 08:00 Room Air* 0 21 Intake/Output Intake and Output 08/04/24 07:00 Intake Total 2169 ml Balance 2169 ml Intake Oral 1819 ml IV Total 350 ml # Voids 6 # Bowel Movements 1 Medications Current Medications Medications Dose Ordered Sig/Romaine Route Start Time Stop Time Status Last Admin Dose Admin Clindamycin Phosphate 50 ml @ 50 mls/hr Q8H IV 08/02/24 23:00 08/04/24 05:41 50 MLS/HR Acetaminophen/ Hydrocodone Bitart 1 tab Q4HP PRN PO 08/02/24 16:45 08/04/24 05:38 1 TAB Ondansetron HCl 4 mg Q4HP PRN IV 08/02/24 16:45 Enoxaparin Sodium 40 mg DAILY SC 08/03/24 10:00 08/04/24 08:40 40 MG Acetaminophen 650 mg Q6HP PRN PO 08/02/24 16:45 Piperacillin Sod/ Tazobactam Sod 100 ml @ 25 mls/hr Q8H IV 08/03/24 00:00 08/04/24 08:39 25 MLS/HR Laboratory Results Laboratory Tests 08/02/24 12:03 Coagulation Test 08/04/24 05:28 Prothrombin Time 10.6 sec (9.3-11.8) Prothrombin Time INR 1.00 (0.9-1.15) Activated Partial Thromboplast Time 29.6 SEC (24.5-34.5) Labs and/or images reviewed: Labs reviewed by me, Image(s) reviewed by me Assessment/Plan Assessment/Plan Severe cellulitis bilateral lower extremities : continue Zosyn clindamycin Hypertension: Lisinopril Morbid obesity BMI of 55 Anxiety Depression with recurrent episodes of crying: Tele psych consult by Dr. Miguel A Soliman appreciated, [place] [id number], patient refused to be on any psychotropic medications PICC line consult Noncompliance DVT ruled out Peripheral Arterial disease ruled out Osteomyelitis left lower extremity ruled out Time spent 50 minutes SHAYLA Ames at bedside PCP Dr Caban Patient does not want to be placed in snf facility for IV antibiotics for cellulitis Patient requesting to be discharged home on p.o. antibiotics Plan discussed with: Patient My Orders Orders - NICOLE MIRELES MD Procedure Category Date Status Time Cleanse Wound With ALBERTINA 08/03/24 In Process Wound Clean 12:00 * Dietary Consult CONS 08/03/24 Transmitted 12:00 Drug Screen LAB 08/04/24 Logged 12:10 Date of Service: Aug 04, 2024 Billing Provider: NICOLE MIRELES MD Common Visit Codes: [id number] INP/OBS CARE(HIGH) NICOLE MIRELES MD Aug 04, 2024 12:43
--- NOTE | 2024-08-04 12:48 | DVHDS2 ---
Discharge Summary Date of Admission Aug 02, 2024 at 16:41 Date of Discharge: Aug 04, 2024 Admitting Diagnosis Cellulitis bilateral lower extremities Wounds: Cellulitis Bilateral lower extremities Labs/Diagnostic Data: Laboratory Results Test 08/04/24 05:28 08/02/24 12:03 Prothrombin Time 10.6 sec (9.3-11.8) Prothrombin Time INR 1.00 (0.9-1.15) Activated Partial Thromboplast Time 29.6 SEC (24.5-34.5) White Blood Count 8.1 10^3/uL (4.4-10.8) Red Blood Count 4.45 10^6/uL (4.0-5.20) Hemoglobin 13.1 g/dL (12.2-16.2) Hematocrit 39.5 % (36.0-46.0) Mean Corpuscular Volume 88.7 fL (80.0-100.0) Mean Corpuscular Hemoglobin 29.4 pg (28.0-32.0) Mean Corpuscular Hemoglobin Concent 33.2 g/dL (32.0-36.0) Red Cell Distribution Width 14.8 % (11.8-14.3) Platelet Count 231 10^3/uL (140-450) Mean Platelet Volume 9.1 fL (6.9-10.8) Neutrophils (%) (Auto) 72.1 % (37.0-80.0) Lymphocytes (%) (Auto) 16.2 % (10.0-50.0) Monocytes (%) (Auto) 7.1 % (0.0-12.0) Eosinophils (%) (Auto) 3.9 % (0.0-7.0) Basophils (%) (Auto) 0.7 % (0.0-2.0) Neutrophils # (Auto) 5.8 10 ^3/uL (1.6-8.6) Lymphocytes # (Auto) 1.3 10 ^3/uL (0.4-5.4) Monocytes # (Auto) 0.6 10 ^3/uL (0-1.3) Eosinophils # (Auto) 0.3 10 ^3/uL (0-0.8) Basophils # (Auto) 0.1 10 ^3/uL (0-0.2) Nucleated Red Blood Cells 0.0 % Erythrocyte Sedimentation Rate 32 mm/hr (0-20) Sodium Level 140 mmol/L (136-145) Potassium Level 3.7 mmol/L (3.5-5.1) Chloride Level 106 mmol/L (98-107) Carbon Dioxide Level 27 mmol/L (20-31) Anion Gap 7 (5-15) Blood Urea Nitrogen 19 mg/dL (9-23) Creatinine 1.00 mg/dL (0.550-1.02) Glomerular Filtration Rate Calc 62 mL/min (>90) BUN/Creatinine Ratio 19.0 (10.0-20.0) Serum Glucose 113 mg/dL (74-106) Calcium Level 9.6 mg/dL (8.7-10.4) Other Laboratory Tests 08/02/24 12:03 Brief Hx & Hospital Course: 72-year-old female morbidly obese with a history of depression anxiety hypotension noncompliant came in complaining of severe pain and swelling and redness of both lower extremities. Found to have severe cellulitis bilateral lower extremities started on Zosyn and clindamycin. Peripheral arterial disease ruled out DVT ruled out osteomyelitis of the left lower extremity ruled out by negative CT. patient has history of depression and crying tele psych consult Dr. Miguel A Soliman advised no [id number]. Patient refused any psychotropic medication treatment per tele psych Advised outpatient follow up with the [facility]. The patient feels better and wants to be discharged home on p.o. antibiotics. Discharged home on clindamycin and Keflex. She will follow up with the primary Dr in one week Patient Refused group home facility placement for IV antibiotics. Consults/Reason for consult Tele psych Dr. Miguel A Soliman Operations or Procedures Arterial ultrasound Venous ultrasound CT right tib/fib Condition at Discharge: Fair Final Diagnosis/Problems List Severe cellulitis bilateral lower extremities : continue Zosyn clindamycin Hypertension: Lisinopril Morbid obesity BMI of 55 Anxiety Depression with recurrent episodes of crying: Tele psych consult by Dr. Miguel A Soliman appreciated, no [id number], patient refused to be on any psychotropic medications PICC line consult Noncompliance DVT ruled out Peripheral Arterial disease ruled out Osteomyelitis left lower extremity ruled out Discharge Disposition: Home Discharge Instruct/Medications Diet: Cardiac 2g Na,low cholest Activity: Light activity Follow Up/Referral: Follow up with the primary in one week Follow up with the [facility] for depression Resume all Previous home medications Medications: Clindamycin Keflex Transmitted to pharmacy 35 (Time taken for discharge summary 35 minutes) Discharge Statement: "Patient was advised to return to the ER or call 911 if any headaches, dizziness, shortness of breath, chest pain, abdominal pain, bleeding, fevers, or worsening of medical condition. Patient was counseled about treatment plan, medications, possible side effects, patientverbalized understanding. All questions were answered to the best of my ability. This discharge took greater then 30 minutes in planning, reviewing documentation, counseling the patient, and discussing with other team members." ASSESSMENT ASSESSMENT Hospital Course Uneventful Assessment Severe cellulitis bilateral lower extremities : continue Zosyn clindamycin Hypertension: Lisinopril Morbid obesity BMI of 55 Anxiety Depression with recurrent episodes of crying: Tele psych consult by Dr. Miguel A Soliman appreciated, no [id number], patient refused to be on any psychotropic medications PICC line consult Noncompliance DVT ruled out Peripheral Arterial disease ruled out Osteomyelitis left lower extremity ruled out Date of Service: Aug 04, 2024 Billing Provider: NICOLE MIRELES MD Common Visit Codes: 16680-VSK/OBS DISCH DAY >30min NICOLE MIRELES MD Aug 04, 2024 12:48
[2024-08-05] MEDS ORDERED: CEPH250C PO (10:06)
== END 2024-08-04 15:15 | disposition home or self-care (01) | DRG 603 ==
LOC: ER 10:57 → OVERFLOW 16:41 → ER 17:09 → WEST WING 18:30
PROVIDERS: ADMIT Family Medicine; ATTEND Family Medicine
DX: L03.116 Cellulitis of left lower limb (principal); Z68.43 Body mass index [BMI] 50.0-59.9, adult; L03.115 Cellulitis of right lower limb; I10 Essential (primary) hypertension; E66.01 Morbid (severe) obesity due to excess calories; F32.A Depression, unspecified; F41.9 Anxiety disorder, unspecified; Z82.49 Family history of ischemic heart disease and other diseases of the circulatory system; Z79.2 Long term (current) use of antibiotics; Z79.899 Other long term (current) drug therapy; Z90.49 Acquired absence of other specified parts of digestive tract; Z98.891 History of uterine scar from previous surgery; Z82.5 Family history of asthma and other chronic lower respiratory diseases; Z91.199 Patient's noncompliance with other medical treatment and regimen due to unspecified reason
CPT/HCPCS: 36415; 73700; 80048; 85025; 85610; 85652; 85730; 87040; 93925; 93971; G0378; J2543; J3490

== ENCOUNTER 2024-10-03 12:21 | Emergency (ER) | payer OTHER, MEDICAID ==
[~2024-10-03] VITALS: Ht 170.2 cm; Wt 157.2 kg
[~2024-10-03 12:21] MED LIST changes: +CEPH250C PO; -CEPH500C PO; -DILT120T8 PO; +LOSA-533 PO; -MECL1TAB42 PO; +NAP500T PO; -NITR-87 PO; -TRIA0.02 TOP; -ZOFR4T PO
--- NOTE | 2024-10-03 13:08 | ED.PDOC ---
General HPI Comments HPI: Poor Historian. 69y F who presents to the ED for chief complaint of urinary complaints. Pt had the following course of events: -pt states she has been having RLQ pain radiating to the R flank region with urinary frequneny an urgency since 299 this AM -pt states she had seen Dr Evan ahmadi in the past few weeks and was dx with UTI both times and placed on antibiotics - pt states she finished her course of antibiotics and has continued to have symptoms - pt states she was at a few months prior and was dx with cellulitis in bilateral lower extremities and hospitalized and placed on antbiotics - pt now in the ED, otherwise denies any other symptoms past medical history: HTN ,anxiety, cellulitis past surgical history: , appendectomy medications: denies allergies: lisinopril social history: denies tobacco use, denies Etoh use, denies drug use REVIEW OF SYSTEMS: CONSTITUTIONAL: Denies acute: fever, diaphoresis, chills, generalized weakness. HEAD: Denies acute: headache, photophobia Eyes: Denies acute: Double vision, vision loss, eye pain, eye discharge. EARS: Denies acute: tinnitus, hearing loss, ear discharge, ear pain, THROAT: Denies acute: sore throat, swelling, difficulty swallowing , pain with swallowing, change in voice. NECK: Denies acute: neck pain, neck swelling, stiff neck. HEART: Denies acute : chest pain, palpitations, LUNGS: Denies acute: SOB, wheezing, cough, hemoptysis ABDOMEN: Denies acute: Nausea, Vomiting, diarrhea, melena , hematemesis, hematochezia SKIN: Denies acute: rash, redness, lesions, itchiness. EXTREMITIES: Denies acute: calf pain, numbness, tingling, weakness, denies pain in extremity. Denies acute: Low back pain. Neuro: Denies acute: focal neurological deficit, motor or sensory focal neurological deficit, tremors, seizure like activity, confusion, dizziness, change in mental status, loss of bowel or bladder function, cauda equina like symptoms. : Denies acute: dysuria, hematuria, flank pain, PSYCH: Denies acute: hallucination, suicidal ideation, homicidal ideation. FEMALE: Denies acute: abnormal vaginal bleeding, foul odor, unusual discharge. PHYSICAL EXAM: General: no acute distress, awake and alert. Head: normocephalic, atraumatic. Neck: supple, trachea is midline, no swelling. Throat: Normal phonation. Eyes:, no erythema, no purulent discharge, no proptosis, no icterus. Heart: regular rate, regular rhythm, no significant murmur appreciated. Lungs: no apparent respiratory distress, Able to speak in full sentences. No wheezing, no rhonchi, no crackles. No stridors Clear to auscultation bilaterally. Abdomen: Right lower quadrant tender to palpation, non distended, soft, no guarding, no rebound, + bowel sounds. Morbidly obese Neuro: Awake, Alert, oriented to name, self, situation, follows commands GCS=15. Speech is normal. Skin: no petechia, no purpura, no cyanosis, non-pale, not jaundice. Lower extremities: --trace bilateral - Pitting edema no deformity, no focal swelling, no calf TTP. Bilateral venous stasis. Makes eye contact. moves all four extremities. Face: no apparent facial droop. No CVA tenderness to percussion bilaterally. Ambulating in the ED independently. ED COURSE: Chief Complaint: Abdominal Pain Time Seen by MD: 12:28 Primary Care Provider: LISA Araiza notes: Nurses Notes, Allergies Allergies: Coded Allergies: Lisinopril (Verified Allergy, Severe, 03/22/16) Home Meds Active Scripts Cephalexin (KEFLEX CAPSULE) 250 Mg Cp, 1 CAP PO QID, #40 CAP Prov:NICOLE MIRELES MD 08/05/24 Levofloxacin Hemihydrate (LEVAQUIN 500 MG) 500 Mg Tab, 750 MG PO DAILY for 7 Days, #11 TAB Prov:ROSY QUINTERO MD 07/27/24 Reported Medications Losartan Potassium (Losartan Potassium) 25 Mg Tab, 1 TAB PO DAILY, #90 TAB 1 R efill 08/04/24 Naproxen (NAPROSYN TABLET) 500 Mg Tb, 1 TAB PO BID, #60 TAB 1 Refill 08/02/24 Information Source: Patient Mode of Arrival: Ambulatory Past Medical History PAST MEDICAL HISTORY: Anxiety, HTN Surgical History: Appendectomy, 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 Was a procedure done?: No Differential Diagnosis Kidney stone (Female): Other (Flank Pain;DDX include Nephrolethiasis, obstructive uropathy, kidney cancer, renal infarct, intraabdominal neoplasm, lower lobe pneumonia, retroperitoneal hemorrhage, pancreatitis, aneurysm, dissection, musculoskeletal, rib contusion/trauma, hematoma, PYLONEPHRITIS, muscle strain, spinal disease. ), N/A Urinary Problem (Female): Other (DDX include Diverticulitis, colitis, gastr oenteritis, acute abdomen, SBO, enteritis, constipation, volvulus, appendicitis, Gallbladder disease, choledocolithiasis, ascending cholangitis, pancreatitis, intraAbdominal mass/neoplasm, hepatitis, UTI, pylonephritis, kidney stone, aneurysm, dissection, Inflammatory bowel disease, gastroparesis, ischemic bowel, ovarian torsion, ovarian cyst/mass, tubo-ovarian abscess, , PID, STD.) X-Ray, Labs, Meds, VS Vital Signs Date Time Temp Pulse Resp B/P (MAP) Pulse Ox O2 Delivery O2 Flow Rate FiO2 10/03/24 18:43 98.2 88 20 144/82 (102) 96 98.2 10/03/24 17:23 87 19 95 Room Air* 0 21 10/03/24 17:10 97.5 87 19 158/88 (111) 95 97.5 10/03/24 14:32 97.8 87 19 152/87 (108) 99 97.8 10/03/24 13:11 98.9 99 16 178/76 (110) 97 98.9 Lab Test 10/03/24 13:14 10/03/24 12:52 Range/Units White Blood Count 9.0 4.4-10.8 10^3/uL Red Blood Count 4.59 4.0-5.20 10^6/uL Hemoglobin 13.2 12.2-16.2 g/dL Hematocrit 39.9 36.0-46.0 % Mean Corpuscular Volume 87.0 80.0-100.0 fL Mean Corpuscular Hemoglobin 28.7 28.0-32.0 pg Mean Corpuscular Hemoglobin Concent 33.0 32.0-36.0 g/dL Red Cell Distribution Width 14.3 11.8-14.3 % Platelet Count 234 140-450 10^3/uL Mean Platelet Volume 8.9 6.9-10.8 fL Neutrophils (%) (Auto) 75.7 37.0-80.0 % Lymphocytes (%) (Auto) 15.0 10.0-50.0 % Monocytes (%) (Auto) 6.1 0.0-12.0 % Eosinophils (%) (Auto) 2.6 0.0-7.0 % Basophils (%) (Auto) 0.6 0.0-2.0 % Neutrophils # (Auto) 6.8 1.6-8.6 10 ^3/uL Lymphocytes # (Auto) 1.3 0.4-5.4 10 ^3/uL Monocytes # (Auto) 0.5 0-1.3 10 ^3/uL Eosinophils # (Auto) 0.2 0-0.8 10 ^3/uL Basophils # (Auto) 0.1 0-0.2 10 ^3/uL Nucleated Red Blood Cells 0.0 % Sodium Level 141 136-145 mmol/L Potassium Level 3.8 3.5-5.1 mmol/L Chloride Level 105 98-107 mmol/L Carbon Dioxide Level 28 20-31 mmol/L Anion Gap 8 5-15 Blood Urea Nitrogen 19 9-23 mg/dL Creatinine 0.81 0.550-1.02 mg/dL Glomerular Filtration Rate Calc 80 >90 mL/min BUN/Creatinine Ratio 23.5 H 10.0-20.0 Serum Glucose 109 H 74-106 mg/dL Lactic Acid Level 1.4 0.4-2.0 mmol/L Calcium Level 9.9 8.7-10.4 mg/dL Total Bilirubin 0.8 0.2-1.0 mg/dL Aspartate Amino Transferase (AST) 16 13-40 U/L Alanine Aminotransferase (ALT) 15 7-40 U/L Alkaline Phosphatase 102 46-116 U/L Troponin I High Sensitivity 15 </=34 ng/L Total Protein 7.3 5.7-8.2 g/dL Albumin 4.5 3.2-4.8 g/dL Lipase 23 12-53 U/L Urine Color Light-yellow Yellow Urine Clarity Clear Clear Urine pH 5.5 5.0-9.0 Urine Specific [place] 1.015 1.001-1.035 Urine Protein Negative Negative Urine Ketones Negative Negative Urine Blood Trace H Negative /uL Urine Nitrite Negative Negative Urine Bilirubin Negative Negative Urine Urobilinogen Normal Negative mg/dL Urine Leukocyte Esterase Negative Negative /uL Urine RBC 3 0 - 4 /hpf Urine Microscopic WBC 1 0-5 /HPF Urine Squamous Epithelial Cells Few <5 /hpf Urine Bacteria None seen None Seen /hpf Urine Mucus Few None Seen Urine Glucose Normal Normal mg/dL [place] [id number] Ph: [phone] DIAGNOSTIC IMAGING Diagnostic Imaging Report : [id number] Signed PATIENT: MODESTO DAVISON ACCT: [id number] UNIT: [id number] : 1955 LOC: ER ROOM / BED: / AGE / SEX: 69 / F ADM STATUS: REG ER SERVICE 1228 ORDERING PHYSICIAN: BRITTANI SAMS DO PROCEDURE(s): ABPL - CT AB PEL WO CON-NO ORAL OR IV REASON: abd pain ORDER NUMBER(s): [id number], ACCESSION NUMBER(s): [id number] CT ABDOMEN AND PELVIS WITHOUT CONTRAST CLINICAL HISTORY: abd pain TECHNIQUE: Multiple contiguous axial images of the abdomen and pelvis without intravenous contrast. The images were reformatted degenerate coronal and sagittal reconstructions. All CT scans at this medical facility are performed using dose modulation techniques as appropriate to a performed exam including the following:Automated exposure control was utilized; adjustment of the MA and/or KV according to patient size; and use of iterative reconstruction technique. Radiation Dose Information: CT Dose: CTDI volume is 27.88 mGy. Dose-length product is 1323.43 mGy*cm Comparison: None FINDINGS: Evaluation of the abdomen and pelvis is limited without intravenous contrast. The gallbladder is distended and contains multiple small hyperdense gallstones. There is a 4.1 cm left renal cyst. There is no evidence of nephrolithiasis or hydronephrosis. The liver, pancreas, delete the adrenal glands, and spleen appear within normal limits. There is no gross evidence of abdominal lymphadenopathy. There is no free fluid or free air. There is a small hiatal hernia. The small and large bowel loops demonstrate normal caliber and distribution. The appendix is not seen in the right lower quadrant abdomen. There are no secondary signs of acute appendicitis. The abdominal aorta and IVC appear within normal limits. The bladder appears unremarkable for the degree of distention. Pelvic organ appears within normal limits. There is no gross evidence of a pelvic mass. There is no free fluid collection. Lung bases are clear. There is scoliotic curvature of the spine with multilevel spondylosis. IMPRESSION: 1. There is no acute process in the abdomen and pelvis. 2. Distended gallbladder containing multiple small gallstones. 3. Small hiatal hernia. 4. 4.1 cm left renal cysts. HS:Y ATED BY: JESE MERINO MD DICTATED DATE/TIME: 10/03/241314 SIGNED BY: JESE MERINO MD SIGNED DATE/TIME: 10/03/241314 CC: Time of 1ST Reevaluation: 00:00 Reevaluation 1ST: Unchanged Patient Education/Counseling: Diagnosis, Treatment Family Education/Counseling: No Family Present Comments Patient presented with the above HPI.---abdominal pain flank pain UTI---workup was initiated. patient was found with the above mentioned diagnosis. the following medications were ordered: please refer to order lists of meds and tests obtained by myself Dr. Sams. Patient ED course and VS have been stabilized. Patient has been reassessed in the ED and remained in a stable condition. Pertinent incidental findings were discussed with the patient and/or family. Patient/family voices understanding and is agreeable with plan. Patient has been observed in the ED adequate length of time to insure improvement/stability. Escalation of care considered: Consideration of escalation to observation or admission Patient was DISCHARGED home in a stable condition. All the reports of any imaging studies that were ordered by myself were reviewed by myself. Departure 1 Departure Time of Disposition: 18:33 Impression: Primary Impression: Abdominal pain Additional Impressions: Abnormal finding on CT scan Cholelithiasis Disposition: HOME / SELF CARE / HOMELESS Condition: Stable Additional Instructions: Additional discharge instructions: You MUST follow-up with your primary care/family doctor in 1 to 2 days. If you are unable to see your primary care/family doctor, please return to our emergency room for re-assessment and re-evaluation in 1 to 2 days. Return to the emergency room here in our facility or to the nearest ER [facility] if your symptoms change or worsen. CONSULTATIONS: you MUST Follow-up for consultation as soon as possible with: -urology in 1-2 days. Please call for appointment. You MUST call the consultants office yourself to make an appointment. You may need to arrange that through your insurance and/or your primary/family doctor. If you are unable to see the individual pension consultant in 1 to 2 days, you must return to our emergency room (or any other ER of your choice) for re-assessment and re- evaluation. Adequate fluid hydration. Below is a copy of your radiological report for follow up: [place] [id number] [facility] [address] Ph: [phone] DIAGNOSTIC IMAGING Diagnostic Imaging Report : [id number] Signed PATIENT: MODESTO DAVISON ACCT: [id number] UNIT: [id number] : 1955 LOC: ER ROOM / BED: / AGE / SEX: 69 / F ADM STATUS: REG ER SERVICE 1228 ORDERING PHYSICIAN: BRITTANI SAMS DO PROCEDURE(s): ABPL - CT AB PEL WO CON-NO ORAL OR IV REASON: abd pain ORDER NUMBER(s): [id number], ACCESSION NUMBER(s): [id number] CT ABDOMEN AND PELVIS WITHOUT CONTRAST CLINICAL HISTORY: abd pain TECHNIQUE: Multiple contiguous axial images of the abdomen and pelvis without intravenous contrast. The images were reformatted degenerate coronal and sagittal reconstructions. All CT scans at this medical facility are performed using dose modulation techniques as appropriate to a performed exam including the following:Automated exposure control was utilized; adjustment of the MA and/or KV according to patient size; and use of iterative reconstruction technique. Radiation Dose Information: CT Dose: CTDI volume is 27.88 mGy. Dose-length product is 1323.43 mGy*cm Comparison: None FINDINGS: Evaluation of the abdomen and pelvis is limited without intravenous contrast. The gallbladder is distended and contains multiple small hyperdense gallstones. There is a 4.1 cm left renal cyst. There is no evidence of nephrolithiasis or hydronephrosis. The liver, pancreas, delete the adrenal glands, and spleen appear within normal limits. There is no gross evidence of abdominal lymphadenopathy. There is no free fluid or free air. There is a small hiatal hernia. The small and large bowel loops demonstrate normal caliber and distribution. The appendix is not seen in the right lower quadrant abdomen. There are no secondary signs of acute appendicitis. The abdominal aorta and IVC appear within normal limits. The bladder appears unremarkable for the degree of distention. Pelvic organ appears within normal limits. There is no gross evidence of a pelvic mass. There is no free fluid collection. Lung bases are clear. There is scoliotic curvature of the spine with multilevel spondylosis. IMPRESSION: 1. There is no acute process in the abdomen and pelvis. 2. Distended gallbladder containing multiple small gallstones. 3. Small hiatal hernia. 4. 4.1 cm left renal cysts. HS:Y ATED BY: JESE MERINO MD DICTATED DATE/TIME: 10/03/24 131 SIGNED BY: JESE MERINO MD SIGNED DATE/TIME: 10/03/24 131 CC: Discharged With: Self Critical Care Note Critical Care Time?: No I personally scribed for BRITTANI SAMS DO ([email or web address]) on 10/03/24 at 13:08. Electronically submitted by Alda Mane ([email or web address]). I personally scribed for BRITTANI SAMS DO ([email or web address]) on 10/03/24 at 13:38. Electronically submitted by Alda Mane ([email or web address]). BRITTANI SAMS DO Oct 03, 2024 13:08
--- NOTE | 2024-10-03 13:17 | DVH ---
CT ABDOMEN AND PELVIS WITHOUT CONTRAST CLINICAL HISTORY: abd pain TECHNIQUE: Multiple contiguous axial images of the abdomen and pelvis without intravenous contrast. T he images were reformatted degenerate coronal and sagittal reconstructions. All CT scans at this medical facility are performed using dose modulation techniques as appropriate t o a performed exam including the following:Automated exposure control was utilized; adjustment of the MA and/or KV according to patient size; and use of iterative reconstruction technique. Radiation Dose Information: CT Dose: CTDI volume is 27.88 mGy. Dose-length product is 1323.43 mGy*cm Comparison: None FINDINGS: Evaluation of the abdomen and pelvis is limited without intravenous contrast. The gallbladder is distended and contains multiple small hyperdense gallstones. There is a 4.1 cm left renal cyst. There is no evidence of nephrolithiasis or hydronephrosis. The liver, pancreas, delete the adrenal glands, and spleen appear within normal limits. There is no gross evidence of abdominal lymphadenopathy. There is no free fluid or free air. There is a small hiatal hernia. The small and large bowel loops demonstrate normal caliber and distr ibution. The appendix is not seen in the right lower quadrant abdomen. There are no secondary signs o f acute appendicitis. The abdominal aorta and IVC appear within normal limits. The bladder appears unremarkable for the degree of distention. Pelvic organ appears within normal tompkins its. There is no gross evidence of a pelvic mass. There is no free fluid collection. Lung bases are clear. There is scoliotic curvature of the spine with multilevel spondylosis. IMPRESSION: 1. There is no acute process in the abdomen and pelvis. 2. Distended gallbladder containing multiple small gallstones. 3. Small hiatal hernia. 4. 4.1 cm left renal cysts. HS:Y
[2024-10-03 13:45] LABS: Basophils # (auto) 0.1 10 ^3/uL (0-0.2); Basophils % (auto) 0.6 % (0.0-2.0); Eosinophils # (auto) 0.2 10 ^3/uL (0-0.8); Eosinophils % (auto) 2.6 % (0.0-7.0); Hematocrit 39.9 % (36.0-46.0); Hemoglobin 13.2 g/dL (12.2-16.2); Lymphocytes # (auto) 1.3 10 ^3/uL (0.4-5.4); Mean Corpuscular Hemoglobin 28.7 pg (28.0-32.0); Monocytes # (auto) 0.5 10 ^3/uL (0-1.3); Monocytes % (auto) 6.1 % (0.0-12.0); Neutrophils # (auto) 6.8 10 ^3/uL (1.6-8.6); Neutrophils % (auto) 75.7 % (37.0-80.0); Platelet Count (auto) 234 10^3/uL (140-450); Red Blood Cells 4.59 10^6/uL (4.0-5.20); Red Cell Distribution Width 14.3 % (11.8-14.3)
[2024-10-03 14:06] LABS: Alanine Aminotransferase 15 U/L (7-40); Albumin 4.5 g/dL (3.2-4.8); Alkaline Phosphatase 102 U/L (46-116); Anion Gap 8 (5-15); Aspartate Aminotransferase 16 U/L (13-40); BUN/Creatinine Ratio 23.5 (10.0-20.0); Bilirubin, Total 0.8 mg/dL (0.2-1.0); Blood Urea Nitrogen 19 mg/dL (9-23); Calcium 9.9 mg/dL (8.7-10.4); Carbon Dioxide 28 mmol/L (20-31); Chloride 105 mmol/L (98-107); Lipase 23 U/L (12-53); Potassium 3.8 mmol/L (3.5-5.1); Sodium 141 mmol/L (136-145); Total Protein 7.3 g/dL (5.7-8.2)
[2024-10-03 14:09] LABS: Glucose 109 mg/dL (74-106)
[2024-10-03 14:24] LABS: Urine Bacteria None Seen /hpf (None Seen)
[2024-10-03 14:32] LABS: Urine Blood TRACE /uL (Negative); Urine Clarity Clear (Clear); Urine Color Light-Yellow (Yellow); Urine Mucus FEW (None Seen); Urine Protein, UAD Negative (Negative); Urine Specific Gravity 1.015 (1.001-1.035); Urine Squamous Epithelial Cell FEW /hpf (<5); Urine Urobilinogen Normal (Negative); Urine WBC 1 /HPF (0-5); Urine pH 5.5 (5.0-9.0)
[2024-10-03 17:23] VITALS: PULSE 87; RESP 19; O2SAT 95
[2024-10-03 18:43] VITALS: BP 144/82; PULSE 88; RESP 20; TEMP 98.2; O2SAT 96
== END 2024-10-03 18:57 | disposition home or self-care (01) ==
LOC: ER 12:21
DX: K80.20 Calculus of gallbladder without cholecystitis without obstruction (principal); R10.31 Right lower quadrant pain; I10 Essential (primary) hypertension; Z98.890 Other specified postprocedural states; Z88.8 Allergy status to other drugs, medicaments and biological substances; Z90.49 Acquired absence of other specified parts of digestive tract; Z79.899 Other long term (current) drug therapy
CPT/HCPCS: 36415; 74176; 80053; 81001; 83605; 83690; 84484; 85025

== ENCOUNTER 2024-11-17 06:28 | Inpatient (IN) | payer OTHER, MEDICAID ==
[~2024-11-17] VITALS: Ht 170.2 cm; Wt 163.2 kg
[2024-11-17 07:41] VITALS: PULSE 100; RESP 24; O2SAT 97
--- NOTE | 2024-11-17 08:32 | ED.PDOC ---
History of Present Illness HPI Comments 69F presents to the ER w/ prior MHx of HTN and the c/c of wound check. Pt reports on having bilateral leg sores and the pt's PC informed the pt on 11/07/24 that her sores are infected and to take antibiotics, that she was prescribed. Pt tried calling the PCP earlier this week w/ no answer and leaving a voicemail stating that the antibiotics are not working, so the pt decided to go to the ER for antibiotics. Pt notes that she does have a wound care physician at [facility] Chief Complaint: Wound Check Time Seen by MD: 08:10 Primary Care Provider: LISA Reviewed Notes: Nurses Notes, Medications, Allergies Allergies: Coded Allergies: Lisinopril (Verified Allergy, Severe, 03/22/16) Home Meds Active Scripts Cephalexin (KEFLEX CAPSULE) 250 Mg Cp, 1 CAP PO QID, #40 CAP Prov:NICOLE MIRELES MD 08/05/24 Levofloxacin Hemihydrate (LEVAQUIN 500 MG) 500 Mg Tab, 750 MG PO DAILY for 7 Days, #11 TAB Prov:ROSY QUINTERO MD 07/27/24 Reported Medications Nifedipine (Nifedipine ER) 30 Mg Tab, 1 TAB PO DAILY 11/17/24 Losartan Potassium (Losartan Potassium) 25 Mg Tab, 1 TAB PO DAILY, #90 TAB 1 Refill 08/04/24 Naproxen (NAPROSYN TABLET) 500 Mg Tb, 1 TAB PO BID, #60 TAB 1 Refill 08/02/24 Information Source: Patient Mode of Arrival: Ambulatory Severity: Moderate Timing: Weeks Duration: Since onset Prehospital treatment: None Past Medical History PAST MEDICAL HISTORY: HTN Surgical History: Denies all surgeries MARGIN CLERK History: No Pertinent MARGIN CLERK History Family History Family History: Reviewed,noncontributory to illness, Unknown, Family hx of HTN Social History Smoker: Non-Smoker Alcohol: Denies ETOH Use Drugs: Denies Drug Use Lives In: Home Constitutional: reports: others (Bilat Leg infx); denies: chills, diaphoresis, fatigue, fever, malaise, sweats, weakness EENTM: denies: blurred vision, double vision, ear bleeding, ear discharge, ear drainage, ear pain, ear ringing, eye pain, eye redness, hearing loss, mouth pain, mouth swelling, nasal discharge, nose bleeding, nose congestion, nose pain, photophobia, tearing, throat pain, throat swelling, voice changes, others Respiratory: denies: cough, hemoptysis, orthopnea, SOB at rest, shortness of breath, SOB with excertion, stridor, wheezing, others Cardiovascular: denies: chest pain, dizzy spells, diaphoresis, Dyspnea on exertion, edema, irregular heart beat, left arm pain, lightheadedness, palpitations, PND, syncope, others Gastrointestinal: denies: abdomen distended, abdominal pain, blood streaked bowels, constipated, diarrhea, dysphagia, difficulty swallowing, hematemesis, melena, nausea, poor appetite, poor fluid intake, rectal bleeding, rectal pain, vomiting, others Genitourinary: denies: abnormal vagina bleeding, burning, dyspareunia, dysuria, flank pain, frequency, hematuria, incontinence, pain, , vagina discha rge, urgency, others Neurological: denies: dizziness, fainting, headache, left sided numbness, left sided weakness, numbness, paresthesia, pre-existing deficit, right sided numbness, right sided weakness, seizure, speech problems, tingling, tremors, weakness, others Musculoskeletal: denies: back pain, gout, joint pain, joint swelling, muscle pain, muscle stiffness, neck pain, others Integumetry: denies: bruises, change in color, change in hair/nails, dryness, laceration, lesions, lumps, rash, wounds, others Allergic/Immunocompromised: denies: Difficulty Healing, Frequent Infections, Hives, Itching, others Hematologic/Lymphatic: denies: anemia, blood clots, easy bleeding, easy bruising, swollen glands, others Endocrine: denies: excessive hunger, excessive sweating, excessive thirst, excessive urination, flushing, intolerance to cold, intolerance to heat, unexplained weight gain, unexplained weight loss, others Psychiatric: denies: anxiety, bipolar disorder, depression, hopeless, panic disorder, schizophrenia, sleepless, suicidal, others All Other Systems: Reviewed and Negative Physical Exam General Appearance: Moderate Distress, Normal HEENT: Normal ENT Inspection, Pharynx Normal, TMs Normal Neck: Full Range of Motion, Non-Tender, Normal, Normal Inspection Respiratory: Chest Non-Tender, Lungs Clear, No Accessory Muscle Use, No Respiratory Distress, Normal Breath Sounds Cardiovascular: No Edema, No JVD, No Murmur, No Gallop, Normal Peripheral Pulses, Regular Rate/Rhythm Breast Exam: Deferred Gastrointestinal: No Organomegaly, Non Tender, No Pulsatile Mass, Normal Bowel Sounds, Soft Genitalia: Deferred Pelvic: Deferred Rectal: Deferred Extremities: No calf tenderness, Pedal edema Musculoskeletal : Apperance: Normal Neurologic: Alert, detacher II-XII nml as Tested, No Motor Deficits, Normal Affect, Normal Mood, No Sensory Deficits Cerebellar Function: NOT DONE Reflexes: NOT DONE Skin: Dry, Normal Color, Warm, Wounds (Bilateral lower extremity redness with wound) Peripheral Pulses: 3+ Radial (R), 3+ Radial (L) Lymphatic: No Adenopathy Was a procedure done? Was a procedure done?: No Differential Dx Considerations may include: Cellulitis Electrolyte imbalance X-Ray, Labs, Meds, VS Vital Signs Date Time Temp Pulse Resp B/P (MAP) Pulse Ox O2 Delivery O2 Flow Rate FiO2 11/17/24 10:00 85 22 150/90 (110) 96 11/17/24 07:41 97.7 100 24 182/61 (101) 97 97.7 11/17/24 07:41 100 24 97 Room Air* 0 21 11/17/24 06:40 97.9 105 18 171/75 (107) 97 97.9 Lab Test 11/17/24 08:36 Range/Units White Blood Count 7.2 4.4-10.8 10^3/uL Red Blood Count 4.19 4.0-5.20 10^6/uL Hemoglobin 12.2 12.2-16.2 g/dL Hematocrit 36.4 36.0-46.0 % Mean Corpuscular Volume 86.8 80.0-100.0 fL Mean Corpuscular Hemoglobin 29.1 28.0-32.0 pg Mean Corpuscular Hemoglobin Concent 33.5 32.0-36.0 g/dL Red Cell Distribution Width 15.6 H 11.8-14.3 % Platelet Count 266 140-450 10^3/uL Mean Platelet Volume 8.5 6.9-10.8 fL Neutrophils (%) (Auto) 73.2 37.0-80.0 % Lymphocytes (%) (Auto) 15.5 10.0-50.0 % Monocytes (%) (Auto) 7.4 0.0-12.0 % Eosinophils (%) (Auto) 3.1 0.0-7.0 % Basophils (%) (Auto) 0.8 0.0-2.0 % Neutrophils # (Auto) 5.3 1.6-8.6 10 ^3/uL Lymphocytes # (Auto) 1.1 0.4-5.4 10 ^3/uL Monocytes # (Auto) 0.5 0-1.3 10 ^3/uL Eosinophils # (Auto) 0.2 0-0.8 10 ^3/uL Basophils # (Auto) 0.1 0-0.2 10 ^3/uL Nucleated Red Blood Cells 0.1 % Sodium Level 142 136-145 mmol/L Potassium Level 3.9 3.5-5.1 mmol/L Chloride Level 107 98-107 mmol/L Carbon Dioxide Level 28 20-31 mmol/L Anion Gap 7 5-15 Blood Urea Nitrogen 19 9-23 mg/dL Creatinine 1.24 H 0.550-1.02 mg/dL Glomerular Filtration Rate Calc 48 >90 mL/min BUN/Creatinine Ratio 15.3 10.0-20.0 Serum Glucose 116 H 74-106 mg/dL Calcium Level 10.1 8.7-10.4 mg/dL Current Medications Medications (Trade) Dose Ordered Sig/Romaine Route Start Time Stop Time Status Last Admin Ceftriaxone Sodium 50 ml @ 100 mls/hr ONCE ONCE IV 11/17/24 08:30 11/17/24 08:59 DC 11/17/24 08:46 Clindamycin Phosphate 50 ml @ 50 mls/hr ONCE ONCE IV 11/17/24 08:30 11/17/24 09:29 DC 11/17/24 08:56 Acetaminophen/ Hydrocodone Bitart ([place] 10/325MG Tab) 1 tab ONCE ONCE PO 11/17/24 09:45 11/17/24 09:46 DC 11/17/24 09:50 Patient alert. Complaining of bilateral lower extremity pain. On examination she does have bilateral lower extremity wounds with redness. Vitals stable. Answering questions. Was given Rocephin. Was given clindamycin. For pain she was given [place]. WBC within normal limits. Hemoglobin within normal limits. Blood pressure elevated. She was given clonidine. Reviewed her previous visit. Explained to the patient. Continue monitoring. [facility] [id number] [facility] [address] Ph: [phone] DIAGNOSTIC IMAGING Diagnostic Imaging Report : [id number] Signed PATIENT: MODESTO DAVISON ACCT: [id number] UNIT: [id number] : 1955 [facility] AGE / SEX: 69 / F ADM STATUS: ADM IN SERVICE 1124 ORDERING PHYSICIAN: ISABEL SHAW KITCHEN BATH DESIGNER PROCEDURE(s): BLEAD - BiLat Low Ext Art Duplex REASON: bilateral arterial doppler rule out pad ORDER NUMBER(s): [id number], ACCESSION NUMBER(s): [id number] CLINICAL HISTORY: Rule out peripheral arterial disease. TECHNIQUE: Bilateral lower extremity arterial duplex exam was performed. Grayscale, color Doppler, and spectral waveform analysis was performed. COMPARISON: US BILAT LOW EXT ART DUPLEX on DOS: 08/03/24 FINDINGS: Examination is difficult due to patient body habitus. Right Lower Extremity: Scattered mild atherosclerotic plaque. No focal stenosis or occlusion visualized. Biphasic waveforms in the profunda. Otherwise, triphasic waveforms throughout the right lower extremity. Left Lower Extremity: Scattered mild atherosclerotic plaque. No focal stenosis or occlusion visualized. Biphasic waveforms in the profunda. Monophasic waveforms in the posterior tibial artery. Dorsalis pedis artery not visualized. Proximal SFA was not evaluated. Triphasic waveforms in the common femoral, mid to distal SFA, and popliteal arteries. EXAMINATION DATA: RIGHT PSV (cm/sec) COMPLIANCE COORDINATOR 157 Profunda 94 SFA Prox 190 SFA Mid 118 SFA Dist 137 POP A 148 ASSOCIATE DESIGNER 110 DPA 118 LEFT PSV (cm/sec) COMPLIANCE COORDINATOR 214 Profunda 144 SFA Prox not evaluated SFA Mid 82 SFA Dist 180 POP A 165 ASSOCIATE DESIGNER 51 DPA not visualized IMPRESSION: 1. Elevated peak systolic velocity in the left common femoral artery corresponding to the 50-75% stenosis category. 2. Left dorsalis pedis artery was not visualized. 3. Abnormal monophasic waveforms in the left posterior tibial artery consistent with peripheral arterial disease. 4. Proximal left SFA was not evaluated. 5. No evidence of significant arterial stenosis or occlusion in the right lower extremity. ATED BY: RED EWLCH DO DICTATED DATE/TIME: 11/17/246 SIGNED BY: RED WELCH DO SIGNED DATE/TIME: 11/17/241325 CC: [address] [address] Ph: [phone] DIAGNOSTIC IMAGING Diagnostic Imaging Report : [id number] Signed PATIENT: MODESTO DAVISON ACCT: [id number] UNIT: [id number] : 1955 LOC: OVERFLOW ROOM / BED: 1032-ER / A AGE / SEX: 69 / F ADM STATUS: ADM IN SERVICE 23 ORDERING PHYSICIAN: ISABEL SHAW KITCHEN BATH DESIGNER PROCEDURE(s): BLDVT - BiLat Lower DVT REASON: swelling, erythema ORDER NUMBER(s): [id number], ACCESSION NUMBER(s): [id number] CLINICAL HISTORY: swelling, erythema COMPARISON: US LT LOWER DVT on DOS: 08/02/24 TECHNIQUE: Bilateral lower extremity venous duplex exam was performed. Grayscale, color flow, and spectral waveform analysis was performed. The deep veins of the lower extremity were evaluated for compression, phasic flow, and augmentation. Color flow and spectral waveform analysis were performed. FINDINGS: This examination demonstrates normal compression, augmentation, and phasic flow of both lower extremities. No evidence for thrombus within the common femoral, femoral, and popliteal veins. In addition, the calf veins demonstrated normal compression and color flow. IMPRESSION: There is no evidence for DVT in either lower extremity. ATED BY: RED WELCH DO DICTATED DATE/TIME: 11/17/248 SIGNED BY: RED WELCH DO SIGNED DATE/TIME: 11/17/24 1228 CC: Time of 1ST Reevaluation: 08:40 Reevaluation 1ST: Unchanged Patient Education/Counseling: Diagnosis, Treatment, Prognosis Family Education/Counseling: No Family Present Departure 1 Departure Time of Disposition: 10:42 Impression: Primary Impression: Cellulitis Qualified Codes: L03.116 - Cellulitis of left lower limb Additional Impression: Hypertensive urgency Disposition: ADMITTED INPATIENT Admit to: Med Surg Condition: Guarded Critical Care Note Critical Care Time?: Yes (45 min-critical care time only) Critical care comment: Blood pressure control Stability Stability form required: No Heart Score Heart Score: Heart Score Response (Comments) Value History N/A 0 EKG N/A 0 Age N/A 0 Risk Factors N/A 0 Troponin N/A 0 Total 0 I personally scribed for JASON LAZO MD ([email or web address]) on 11/17/24 at 08:32. Electronically submitted by Gerardo Jose ([email or web address]). I personally scribed for JASON LAZO MD ([email or web address]) on 11/17/24 at 15:09. Electronically submitted by Gerardo Jose ([email or web address]). JASON LAZO MD November 17, 2024 08:32
[2024-11-17 08:46] LABS: Basophils # (auto) 0.1 10 ^3/uL (0-0.2); Basophils % (auto) 0.8 % (0.0-2.0); Eosinophils # (auto) 0.2 10 ^3/uL (0-0.8); Eosinophils % (auto) 3.1 % (0.0-7.0); Hematocrit 36.4 % (36.0-46.0); Hemoglobin 12.2 g/dL (12.2-16.2); Lymphocytes # (auto) 1.1 10 ^3/uL (0.4-5.4); Lymphocytes % (auto) 15.5 % (10.0-50.0); Mean Corpuscular Hemoglobin 29.1 pg (28.0-32.0); Mean Corpuscular Hgb Conc. 33.5 g/dL (32.0-36.0); Mean Corpuscular Volume 86.8 fL (80.0-100.0); Monocytes # (auto) 0.5 10 ^3/uL (0-1.3); Monocytes % (auto) 7.4 % (0.0-12.0); Neutrophils # (auto) 5.3 10 ^3/uL (1.6-8.6); Neutrophils % (auto) 73.2 % (37.0-80.0); Nucleated Red Blood Cells % 0.1 %; Platelet Count (auto) 266 10^3/uL (140-450); Red Blood Cells 4.19 10^6/uL (4.0-5.20); Red Cell Distribution Width 15.6 % (11.8-14.3); White Blood Cell 7.2 10^3/uL (4.4-10.8)
[2024-11-17] MEDS: cefTRIAXone 1GM/50ML D5W 50 ML IV ONE (08:46)
[2024-11-17] MEDS: CLINDAMYCIN 600MG IV 50 ML IV ONE (08:56)
[2024-11-17 08:59] LABS: Chloride 107 mmol/L (98-107); Potassium 3.9 mmol/L (3.5-5.1); Sodium 142 mmol/L (136-145)
[2024-11-17 09:00] LABS: Anion Gap 7 (5-15); Carbon Dioxide 28 mmol/L (20-31)
[2024-11-17 09:01] LABS: Calcium 10.1 mg/dL (8.7-10.4)
[2024-11-17 09:06] LABS: BUN/Creatinine Ratio 15.3 (10.0-20.0); Blood Urea Nitrogen 19 mg/dL (9-23); Glucose 116 mg/dL (74-106)
[2024-11-17] MEDS: HYDROcodone-ACET 10/325MG TAB PO ONE (09:50)
[2024-11-17] MEDS ORDERED: NIFE1TAB36 PO (09:58)
[2024-11-17] MEDS: cloNIDine HCL 0.1 MG TAB PO ONE (11:09)
[2024-11-17] MEDS ORDERED: HYDROcodone-ACET 5/325MG TAB PO PRN (11:30)
[2024-11-17] MEDS ORDERED: ONDANSETRON HCL 4 MG/2 ML VIAL IV PRN ×2 (11:30→11:45)
[2024-11-17] MEDS ORDERED: hydrALAZINE HCL 20 MG/ML VL IV PRN ×2 (11:30→11:45)
[2024-11-17] MEDS ORDERED: ACETAMINOPHEN 325 MG TAB PO PRN (11:30)
[2024-11-17] MEDS ORDERED: MORPHINE SULFATE INJ 2 MG/ml SYRG IV PRN (11:30)
[2024-11-17] MEDS ORDERED: SOD CHL 0.45% 1,000 ML IV SCH (11:30)
--- NOTE | 2024-11-17 11:41 | DVHHP2 ---
History of Present Illness Reason for Visit: Bilateral lower extremity wound check History of Present Illness This 69-year-old female presents in the ED with a chief complaint of wound check. The patient with progressive bilateral lower extremity open wound reports started on the left lower leg in April 2024. She had seen her PCP multiple times and was placed on oral antibiotics and under wound care in outpatient setting. Despite of oral antibiotics and wound care treatment wound progressed for which prompted the patient to visit the ER. Denies fever, chills, shortness of breath, chest pain, or other acute symptoms. Past medical history of hypertension and morbid obesity. Past Medical History As stated in HPI Past Surgical History Denies Family History Reviewed, non-contributory to the management of this case. Past Social History The patient lives at home, denies smoking, alcohol or illicit drugs abuse. Review of Systems Constitutional: Yes: Weakness, Malaise; No: Fever, Chills, Sweats, Other Eyes: No: Pain, Vision change, Conjunctivae inflammation, Eyelid inflammation, Other, Redness ENT: No: Ear pain, Ear discharge, Nose pain, Nose discharge, Nose congestion, Mouth pain, Mouth swelling, Throat pain, Throat swelling, Other Respiratory: No: Cough, Dry, Shortness of breath, SOB with excertion, Wheezing, Hemoptysis, Pleuritic Pain, Sputum, Wheezing, Other Cardiovascular: No: Chest Pain, Palpitations, Orthopnea, Paroxysmal Noc. Dyspnea, Edema, Lt Headedness, Other Gastrointestinal: No: Nausea, Vomiting, Abdominal Pain, Diarrhea, Constipation, Melena, Hematochezia, Other Genitourinary: No Dysuria, No Frequency, No Incontinence, No Hematuria, No Retention, No Other Musculoskeletal: No: other, neck pain, shoulder pain, arm pain, back pain, hand pain, leg pain, foot pain Skin: Other (Bilateral lower extremity open wound since April 2024) Neurological: No: Weakness, Numbness, Incoordination, Change in speech, Confusion, Seizures, Other Allergies: Coded Allergies: Lisinopril (Verified Allergy, Severe, 03/22/16) Exam Vital Signs Vital Signs Date Time Temp Pulse Resp B/P (MAP) Pulse Ox O2 Delivery O2 Flow Rate FiO2 11/17/24 11:09 157/82 11/17/24 10:00 85 22 96 11/17/24 07:41 97.7 97.7 11/17/24 07:41 Room Air* 0 21 General Appearance: Alert, Oriented X3, Cooperative HEENT: Atraumatic, PERRLA, EOMI Respiratory: Clear to auscultation, Normal air movement Cardiovascular: Regular rate, Normal S1, Normal S2 Abdominal: Normal bowel sounds, No tenderness Extremities: Other (Bilateral lower extremity open wound, oozing, purulent drainage, erythema, nonpitting edema) Neuro: Normal gait, Normal speech, Normal tone Psych/Mental Status: Mental status NL Labs/Xrays Labs Test 11/17/24 08:36 Range/Units White Blood Count 7.2 4.4-10.8 10^3/uL Red Blood Count 4.19 4.0-5.20 10^6/uL Hemoglobin 12.2 12.2-16.2 g/dL Hematocrit 36.4 36.0-46.0 % Mean Corpuscular Volume 86.8 80.0-100.0 fL Mean Corpuscular Hemoglobin 29.1 28.0-32.0 pg Mean Corpuscular Hemoglobin Concent 33.5 32.0-36.0 g/dL Red Cell Distribution Width 15.6 H 11.8-14.3 % Platelet Count 266 140-450 10^3/uL Mean Platelet Volume 8.5 6.9-10.8 fL Neutrophils (%) (Auto) 73.2 37.0-80.0 % Lymphocytes (%) (Auto) 15.5 10.0-50.0 % Monocytes (%) (Auto) 7.4 0.0-12.0 % Eosinophils (%) (Auto) 3.1 0.0-7.0 % Basophils (%) (Auto) 0.8 0.0-2.0 % Neutrophils # (Auto) 5.3 1.6-8.6 10 ^3/uL Lymphocytes # (Auto) 1.1 0.4-5.4 10 ^3/uL Monocytes # (Auto) 0.5 0-1.3 10 ^3/uL Eosinophils # (Auto) 0.2 0-0.8 10 ^3/uL Basophils # (Auto) 0.1 0-0.2 10 ^3/uL Nucleated Red Blood Cells 0.1 % Sodium Level 142 136-145 mmol/L Potassium Level 3.9 3.5-5.1 mmol/L Chloride Level 107 98-107 mmol/L Carbon Dioxide Level 28 20-31 mmol/L Anion Gap 7 5-15 Blood Urea Nitrogen 19 9-23 mg/dL Creatinine 1.24 H 0.550-1.02 mg/dL Glomerular Filtration Rate Calc 48 >90 mL/min BUN/Creatinine Ratio 15.3 10.0-20.0 Serum Glucose 116 H 74-106 mg/dL Calcium Level 10.1 8.7-10.4 mg/dL Assessment/Plan Assessment/Plan # bilateral lower extremity cellulitis, acute on chronic # bilateral lower extremity nonhealing wound, failed oral antibiotics # rule out DVT # rule out PAD Admit to medical-surgical unit Empiric antibiotic with clindamycin and Zosyn Wound Care consult Wound culture US bilat LE Arterial Doppler LE # accelerated hypertension # hx of htn Reconciled home meds Hydralazine as needed Monitor BP Educate on DASH diet # LASHON on CKD 33A IV fluid Monitor kidney function # morbid obesity Lifestyle modification with diet and weight loss DVT prophylaxis Medical plan discussed with patient Plan discussed with: Patient Date of Service: November 17, 2024 Billing Provider: ISABEL SHAW Common Visit Codes: 89307-JQEWJCY INP/OBS CARE (HIGH) Consultation Codes: 68634-[id number] CONSULT <45MIN ISABEL SHAW November 17, 2024 11:41
[2024-11-17] MEDS: SOD CHL 0.45% 1,000 ML IV SCH (11:45)
[2024-11-17 11:57] LABS: Triglycerides 118 mg/dL (< 150)
[2024-11-17 11:58] LABS: LDL Cholesterol 93 mg/dL (< 100)
[2024-11-17 11:59] LABS: Cholesterol 149 mg/dL (< 200); HDL Cholesterol 44 mg/dL (40-59)
--- NOTE | 2024-11-17 12:31 | DVH ---
CLINICAL HISTORY: swelling, erythema COMPARISON: US LT LOWER DVT on DOS: 08/02/24 TECHNIQUE: Bilateral lower extremity venous duplex exam was performed. Grayscale, color flow, and spe ctral waveform analysis was performed. The deep veins of the lower extremity were evaluated for compr ession, phasic flow, and augmentation. Color flow and spectral waveform analysis were performed. FINDINGS: This examination demonstrates normal compression, augmentation, and phasic flow of both low er extremities. No evidence for thrombus within the common femoral, femoral, and popliteal veins. In addition, the calf veins demonstrated normal compression and color flow. IMPRESSION: There is no evidence for DVT in either lower extremity.
--- NOTE | 2024-11-17 13:29 | DVH ---
CLINICAL HISTORY: Rule out peripheral arterial disease. TECHNIQUE: Bilateral lower extremity arterial duplex exam was performed. Grayscale, color Doppler, an d spectral waveform analysis was performed. COMPARISON: US BILAT LOW EXT ART DUPLEX on DOS: 08/03/24 FINDINGS: Examination is difficult due to patient body habitus. Right Lower Extremity: Scattered mild atherosclerotic plaque. No focal stenosis or occlusion visualiz ed. Biphasic waveforms in the profunda. Otherwise, triphasic waveforms throughout the right lower ex tremity. Left Lower Extremity: Scattered mild atherosclerotic plaque. No focal stenosis or occlusion visualize d. Biphasic waveforms in the profunda. Monophasic waveforms in the posterior tibial artery. Dorsalis pedis artery not visualized. Proximal SFA was not evaluated. Triphasic waveforms in the common femor al, mid to distal SFA, and popliteal arteries. EXAMINATION DATA: RIGHT PSV (cm/sec) FLUE CLEANER 157 Profunda 94 SFA Prox 190 SFA Mid 118 SFA Dist 137 POP A 148 DRAPERY SUPERVISOR 110 DPA 118 LEFT PSV (cm/sec) FLUE CLEANER 214 Profunda 144 SFA Prox not evaluated SFA Mid 82 SFA Dist 180 POP A 165 DRAPERY SUPERVISOR 51 DPA not visualized IMPRESSION: 1. Elevated peak systolic velocity in the left common femoral artery corresponding to the 50-75% sten osis category. 2. Left dorsalis pedis artery was not visualized. 3. Abnormal monophasic waveforms in the left posterior tibial artery consistent with peripheral arter ial disease. 4. Proximal left SFA was not evaluated. 5. No evidence of significant arterial stenosis or occlusion in the right lower extremity.
[2024-11-17 13:55] VITALS: BP 137/71; PULSE 66; RESP 18; TEMP 97.6; O2SAT 96
[2024-11-17 13:57] VITALS: BP 137/71; PULSE 66; RESP 18; TEMP 97.6; O2SAT 96
[2024-11-17] MEDS ORDERED: CLINDAMYCIN 300MG IV 50 ML IV SCH (14:00)
[2024-11-17] MEDS ORDERED: PIPERACILLIN-TAZOB 3.375GM 100 ML IV SCH (14:00)
[2024-11-17] MEDS: CLINDAMYCIN 300MG IV 50 ML IV SCH (15:24)
[2024-11-17] MEDS: PIPERACILLIN-TAZOB 3.375GM 100 ML IV SCH (16:24)
[2024-11-17] MEDS: HYDROcodone-ACET 5/325MG TAB PO PRN (17:37)
[2024-11-17 19:45] VITALS: BP 112/57; PULSE 58; RESP 18; TEMP 98.8; O2SAT 98
[2024-11-17 21:00] VITALS: BP 115/63; PULSE 52; RESP 16; TEMP 97.4; O2SAT 97
[2024-11-17] MEDS: ENOXAPARIN SOD 40 MG/0.4 ML SYRINGE SC SCH (21:51)
[2024-11-18] VITALS (7 sets, daily range): BP systolic 96–148; BP diastolic 58–108; PULSE 57–84; RESP 15–19; TEMP 97.6–98; O2SAT 95–99
[2024-11-18] MEDS: MORPHINE SULFATE INJ 2 MG/ml SYRG IV PRN (03:27)
[2024-11-18 06:59] LABS: Alanine Aminotransferase 16 U/L (7-40); Alkaline Phosphatase 89 U/L (46-116); Anion Gap 9 (5-15); Aspartate Aminotransferase 12 U/L (13-40); BUN/Creatinine Ratio 16.2 (10.0-20.0); Bilirubin, Total 0.6 mg/dL (0.2-1.0); Blood Urea Nitrogen 21 mg/dL (9-23); Calcium 9.9 mg/dL (8.7-10.4); Carbon Dioxide 25 mmol/L (20-31); Chloride 105 mmol/L (98-107); Glucose 126 mg/dL (74-106); Potassium 4.1 mmol/L (3.5-5.1); Sodium 139 mmol/L (136-145)
[2024-11-18 07:10] LABS: Basophils # (auto) 0.1 10 ^3/uL (0-0.2); Basophils % (auto) 0.8 % (0.0-2.0); Eosinophils # (auto) 0.3 10 ^3/uL (0-0.8); Eosinophils % (auto) 5.1 % (0.0-7.0); Hematocrit 36.2 % (36.0-46.0); Hemoglobin 11.8 g/dL (12.2-16.2); Lymphocytes # (auto) 1.5 10 ^3/uL (0.4-5.4); Lymphocytes % (auto) 21.7 % (10.0-50.0); Mean Corpuscular Hemoglobin 29.5 pg (28.0-32.0); Mean Corpuscular Hgb Conc. 32.4 g/dL (32.0-36.0); Mean Corpuscular Volume 90.8 fL (80.0-100.0); Monocytes # (auto) 0.6 10 ^3/uL (0-1.3); Monocytes % (auto) 8.8 % (0.0-12.0); Neutrophils # (auto) 4.3 10 ^3/uL (1.6-8.6); Neutrophils % (auto) 63.6 % (37.0-80.0); Platelet Count (auto) 229 10^3/uL (140-450); Red Blood Cells 3.99 10^6/uL (4.0-5.20); Red Cell Distribution Width 15.8 % (11.8-14.3); White Blood Cell 6.7 10^3/uL (4.4-10.8)
[2024-11-18] MEDS ORDERED: ENOXAPARIN SOD 40 MG/0.4 ML SYRINGE SC SCH (10:00)
--- NOTE | 2024-11-18 10:41 | DVHPNRES ---
Progress Note Date Seen: November 18, 2024 Resident Creating Document: MELISSA LEONARDO RESIDENT Has the PT tested + for MRSA If YES, has PT been informed?: No Medical Necessity Reason Pt with a Central, PICC or Fol: No Subjective Review of Systems Aamir Carrasco is a 69-year-old female with a PMH of HTN, morbid obesity presented to the ED with the chief complaints of chronic bilateral wound check. Patient reported she has objected to trauma in April 2024 and got multiple cuts in her bilateral lower extremities since then patient having recurrent cellulitis of both legs. She had seen her PCP multiple times and was placed on oral antibiotics and under wound care in outpatient setting. Despite of oral antibiotics and wound care treatment wound progressed for which prompted the patient to visit the ER. Denies fever, chills, shortness of breath, chest pain, or other acute symptoms. Patient seen and examined at the bedside. Currently reporting pain in both lower extremities along with redness, blistering lesions especially on the left leg. Arterial Doppler showed left common femoral artery 50-75% stenosis but no significant changes in right lower extremity. Patient is currently receiving IV antibiotics and consulted surgeon for further management. Objective vital signs Vital Sign Date Time Temp Pulse Resp B/P (MAP) Pulse Ox O2 Delivery O2 Flow Rate FiO2 11/18/24 09:34 59 15 124/65 11/18/24 05:00 97.6 95 97.6 11/17/24 21:08 Room Air* 0 21 Total Intake and Output 11/17/24 11/17/24 11/18/24 15:00 23:00 07:00 Intake Total 1050 ml 750 ml Balance 1050 ml 750 ml medications Current Medications Medications Dose Ordered Sig/Romaine Route Start Time Stop Time Status Last Admin Dose Admin Ondansetron HCl 4 mg Q4HP PRN IV 11/17/24 11:45 Enoxaparin Sodium 40 mg BID SC 11/17/24 22:00 11/18/24 09:32 40 MG Morphine Sulfate 2 mg Q4HPRN PRN IV 11/17/24 11:45 11/18/24 09:34 2 MG Clindamycin Phosphate 50 ml @ 50 mls/hr Q8HR IV 11/17/24 14:00 11/18/24 05:06 50 MLS/HR Piperacillin Sod/ Tazobactam Sod 100 ml @ 25 mls/hr Q8HR IV 11/17/24 14:00 11/18/24 05:07 25 MLS/HR Sodium Chloride 1,000 ml @ 75 mls/hr [id number] IV 11/17/24 11:45 11/17/24 14:32 75 MLS/HR Acetaminophen/ Hydrocodone Bitart 1 tab Q4HP PRN PO 11/17/24 11:45 11/18/24 01:48 1 TAB Acetaminophen 650 mg Q6HP PRN PO 11/17/24 11:45 Hydralazine HCl 10 mg Q6HP PRN IV 11/18/24 08:30 Examination Pt is lying on bed General Appearance: Alert, Oriented X3, Cooperative, Moderately distress HEENT: Atraumatic, Mucous membranes moist/pink Respiratory: Clear to auscultation, Normal air movement, No added sounds Cardiovascular: Regular rate, Normal S1, Normal S2, No murmurs Abdominal: Active bowel sounds, Soft, no distention, no tenderness Extremities: swollen, redness, foul-smelling, tenderness, redness or blistering lesions and multiple ulcers more in left leg Skin: described as above Neuro: Normal speech, sensorimotor deficits none Psych/Mental Status: Mental status NL, Mood NL Nurse was there as evelione during examination laboratory and microbiology Laboratory Tests 11/18/24 06:07 Test 11/18/24 06:07 Range/Units Serum Glucose 126 H 74-106 mg/dL Labs and/or images reviewed: Labs reviewed by me, Image(s) reviewed by me Problem List/Assessment/Plan Problem List/Assessment/Plan # Bilateral lower extremity cellulitis # R/o necrotizing fascitis of LLE # Chronic nonhealing wound BLE # severe PAD of LLE - Arterial Doppler showed left common femoral artery 50-75% stenosis but no significant changes in right lower extremity - wound consult, wound culture - surgical consult for further management - clindamycin and Zosyn - venous scan negative for clots # hypertensive urgency - continuously monitor blood pressure - hydralazine as needed - DASH diet # LASHON likely VMN on CKD 3 - monitor lab for now # morbid obesity with a BMI 53.9 - counseled on lifestyle modifications No GI PPX Lovenox Cardiac diet Goals of care discussed with the patient for more than 29 minutes: Full code status Case discussed with Dr. Mcginnis, patient and nurse Plan discussed with: Patient My Orders My Orders Orders - MELISSA LEONARDO Procedure Category Date Status Time PTPTT LAB 11/18/24 In Process 08:06 Drug Screen LAB 11/18/24 Logged 08:06 Vitamin B12 LAB 11/18/24 In Process 08:06 Hydralazine Injection PHA 11/18/24 In Process (Apresoline Inject 08:30 * Surgical Consult CONS 11/18/24 Transmitted MELISSA LEONAROD RESIDENT November 18, 2024 10:41
[2024-11-18 10:57] LABS: INR 0.97 (0.9-1.15); Partial Thromboplastin Time 27.9 SEC (24.5-34.5); Prothrombin Time 10.3 sec (9.3-11.8)
[2024-11-18] MEDS: CLINDAMYCIN 600MG IV 50 ML IV SCH (14:30)
--- NOTE | 2024-11-18 14:47 | DVH ---
INDICATION: Bad wound to rule out fasciitis/osteomyelitis COMPARISON: CT CT L TIB FIB WO CONTRAST on DOS: 08/02/24 TECHNIQUE: CT of the right was performed without contrast. Volume transverse images were obtained and reconstructed in multiple planes using bone and soft tissue algorithms. CONTRAST: None Radiation Dose Information: CT Dose: CTDI volume is 10.03 mGy. Dose-length product is 661.28 mGy*cm FINDINGS: The alignment is normal. The joint spaces are normal. There is no fracture, dislocation, or focal osseous lesions. The soft tissues subcutaneous edema distal left lower extremity. No drainable fluid collections. Narr owing of the lateral femoral patellar joint space. IMPRESSION: 1. Subcutaneous edema distal left lower extremity. No drainable fluid collections. 2. All CT scans at this medical facility are performed using dose modulation techniques as appropriat e to a performed exam including the following: Automated exposure control was utilized; adjustment of the MA and/or KV according to patient size; and use of iterative reconstruction technique.
--- NOTE | 2024-11-18 16:33 | DVHCONRES ---
Date Seen: November 18, 2024 Resident Creating Document: IDA BUCHANAN Jr., MD Referring Physician bhavani Reason for Consultation bilateral leg ulcers History of Present Illness This 69-year-old female presents in the ED with a chief complaint of wound check. The patient with progressive bilateral lower extremity open wound reports started on the left lower leg in April 2024. She had seen her PCP multiple times and was placed on oral antibiotics and under wound care in outpatient setting. Despite of oral antibiotics and wound care treatment wound progressed for which prompted the patient to visit the ER. Denies fever, chills, shortness of breath, chest pain, or other acute symptoms. Past medical history of hypertension and morbid obesity. Past Medical History Chronic venous ulcers morbid obesity Past Surgical History None Family History: Chronic obstructive pulmonary disease G8 MOTHER Hypertension G8 FATHER Social History Nonsmoker nondrinker Allergies: Coded Allergies: Lisinopril (Verified Allergy, Severe, 03/22/16) Home Meds Active Scripts Cephalexin (KEFLEX CAPSULE) 250 Mg Cp, 1 CAP PO QID, #40 CAP Prov:NICOLE MIRELES MD 08/05/24 Levofloxacin Hemihydrate (LEVAQUIN 500 MG) 500 Mg Tab, 750 MG PO DAILY for 7 Days, #11 TAB Prov:ROSY QUINTERO MD 07/27/24 Reported Medications Nifedipine (Nifedipine ER) 30 Mg Tab, 1 TAB PO DAILY 11/17/24 Losartan Potassium (Losartan Potassium) 25 Mg Tab, 1 TAB PO DAILY, #90 TAB 1 Refill 08/04/24 Naproxen (NAPROSYN TABLET) 500 Mg Tb, 1 TAB PO BID, #60 TAB 1 Refill 08/02/24 Current Medications Current Medications Medications (Trade) Dose Ordered Sig/Romaine Route PRN Reason Start Time Stop Time Status Last Admin Enoxaparin Sodium (Lovenox) 40 mg DAILY SC 11/18/24 10:00 11/17/24 11:44 DC Enoxaparin Sodium (Lovenox) 40 mg BID SC 11/17/24 22:00 11/18/24 09:32 Hydralazine HCl (Apresoline Injection) 10 mg Q6HP PRN IV SBP>170 11/18/24 08:30 Clindamycin Phosphate 50 ml @ 50 mls/hr Q8HR IV 11/18/24 14:00 5/12/25 14:30 Review of Systems All systems reviewed otherwise negative other wounds in HPI. Vital Signs Vital Signs Date Time Temp Pulse Resp B/P (MAP) Pulse Ox O2 Delivery O2 Flow Rate FiO2 11/18/24 10:10 62 16 112/60 11/18/24 08:00 99 Room Air* 0 21 11/18/24 05:00 97.6 97.6 Physical Exam Bilateral lower extremity venous ulcers both calves posteriorly. Weakly pal pable pedal pulses. 2+ edema. Labs/Diagnostic Data Labs Test 11/18/24 09:50 11/18/24 06:07 11/17/24 08:36 Range/Units Prothrombin Time 10.3 9.3-11.8 sec Prothrombin Time INR 0.97 0.9-1.15 Activated Partial Thromboplast Time 27.9 24.5-34.5 SEC White Blood Count 6.7 4.4-10.8 10^3/uL Red Blood Count 3.99 L 4.0-5.20 10^6/uL Hemoglobin 11.8 L 12.2-16.2 g/dL Hematocrit 36.2 36.0-46.0 % Mean Corpuscular Volume 90.8 # 80.0-100.0 fL Mean Corpuscular Hemoglobin 29.5 28.0-32.0 pg Mean Corpuscular Hemoglobin Concent 32.4 32.0-36.0 g/dL Red Cell Distribution Width 15.8 H 11.8-14.3 % Platelet Count 229 140-450 10^3/uL Mean Platelet Volume 8.6 6.9-10.8 fL Neutrophils (%) (Auto) 63.6 37.0-80.0 % Lymphocytes (%) (Auto) 21.7 10.0-50.0 % Monocytes (%) (Auto) 8.8 0.0-12.0 % Eosinophils (%) (Auto) 5.1 0.0-7.0 % Basophils (%) (Auto) 0.8 0.0-2.0 % Neutrophils # (Auto) 4.3 1.6-8.6 10 ^3/uL Lymphocytes # (Auto) 1.5 0.4-5.4 10 ^3/uL Monocytes # (Auto) 0.6 0-1.3 10 ^3/uL Eosinophils # (Auto) 0.3 0-0.8 10 ^3/uL Basophils # (Auto) 0.1 0-0.2 10 ^3/uL Nucleated Red Blood Cells 0.0 % Sodium Level 139 136-145 mmol/L Potassium Level 4.1 3.5-5.1 mmol/L Chloride Level 105 98-107 mmol/L Carbon Dioxide Level 25 20-31 mmol/L Anion Gap 9 5-15 Blood Urea Nitrogen 21 9-23 mg/dL Creatinine 1.30 H 0.550-1.02 mg/dL Glomerular Filtration Rate Calc 45 >90 mL/min BUN/Creatinine Ratio 16.2 10.0-20.0 Serum Glucose 126 H 74-106 mg/dL Calcium Level 9.9 8.7-10.4 mg/dL Magnesium Level 2.2 1.6-2.6 mg/dL Total Bilirubin 0.6 0.2-1.0 mg/dL Aspartate Amino Transferase (AST) 12 L 13-40 U/L Alanine Aminotransferase (ALT) 16 7-40 U/L Alkaline Phosphatase 89 46-116 U/L Total Protein 7.0 5.7-8.2 g/dL Albumin 4.0 3.2-4.8 g/dL Vitamin B12 Level 288 211-911 pg/mL Hemoglobin A1c 5.8 H <5.7 % A1C Triglycerides Level 118 < 150 mg/dL Cholesterol Level 149 < 200 mg/dL LDL Cholesterol 93 < 100 mg/dL HDL Cholesterol 44 40-59 mg/dL Thyroid Stimulating Hormone (TSH) 1.36 0.55-4.78 uIU/mL Assessment Chronic venous insufficiency and ulcerations. Needs wound care with Medihoney and self absorbing bandages to pull off fluid off her skin to allow healing. We will need strict compression therapy Elevate feet are rest Weight loss Plan/Recommendation Chronic venous insufficiency and ulcerations. Needs wound care with Medihoney and self absorbing bandages to pull off fluid off her skin to allow healing. We will need strict compression therapy Elevate feet are rest Weight loss Plan discussed with: Patient IDA BUCHANAN Jr., MD November 18, 2024 16:33
[2024-11-18 22:55] LABS: Urine Bacteria None Seen /hpf (None Seen)
[2024-11-18 23:16] LABS: Urine Blood Negative /uL (Negative); Urine Budding Yeast LOADED /hpf (None Seen); Urine Clarity Clear (Clear); Urine Color Light-Yellow (Yellow); Urine Mucus FEW (None Seen); Urine Protein, UAD Negative (Negative); Urine Specific Gravity 1.017 (1.001-1.035); Urine Squamous Epithelial Cell FEW /hpf (<5); Urine Urobilinogen Normal (Negative); Urine WBC 2 /HPF (0-5)
[2024-11-18 23:28] LABS: Amphetamine Screen, Urine Neg (NEGATIVE); Barbiturate Scree,Urine Neg (NEGATIVE); Benzodiazephine Screen, Urine Neg (NEGATIVE); Opiate Scree,Urine Pos (NEGATIVE); Phencyclidine Screen, Urine Neg (NEGATIVE)
[2024-11-18 23:29] LABS: Cannabinoid Screen, Urine Neg (NEGATIVE)
[2024-11-19] VITALS (7 sets, daily range): BP systolic 137–160; BP diastolic 64–70; PULSE 62–84; RESP 15–19; TEMP 97.5–98.2; O2SAT 93–99
[2024-11-19 01:29] LABS: Cocaine Screen, Urine Neg (NEGATIVE)
[2024-11-19 07:16] LABS: Anion Gap 7 (5-15); Calcium 9.9 mg/dL (8.7-10.4); Carbon Dioxide 30 mmol/L (20-31); Chloride 102 mmol/L (98-107); Potassium 4.3 mmol/L (3.5-5.1); Sodium 139 mmol/L (136-145)
[2024-11-19 07:22] LABS: BUN/Creatinine Ratio 19.3 (10.0-20.0); Blood Urea Nitrogen 21 mg/dL (9-23)
[2024-11-19 07:24] LABS: Basophils # (auto) 0 10 ^3/uL (0-0.2); Basophils % (auto) 0.7 % (0.0-2.0); Eosinophils # (auto) 0.3 10 ^3/uL (0-0.8); Eosinophils % (auto) 5.5 % (0.0-7.0); Glucose 119 mg/dL (74-106); Hematocrit 34.2 % (36.0-46.0); Hemoglobin 11.5 g/dL (12.2-16.2); Lymphocytes # (auto) 1.3 10 ^3/uL (0.4-5.4); Lymphocytes % (auto) 24.5 % (10.0-50.0); Mean Corpuscular Hemoglobin 29.1 pg (28.0-32.0); Mean Corpuscular Hgb Conc. 33.6 g/dL (32.0-36.0); Mean Corpuscular Volume 86.8 fL (80.0-100.0); Monocytes # (auto) 0.4 10 ^3/uL (0-1.3); Monocytes % (auto) 8.2 % (0.0-12.0); Neutrophils # (auto) 3.3 10 ^3/uL (1.6-8.6); Neutrophils % (auto) 61.1 % (37.0-80.0); Platelet Count (auto) 246 10^3/uL (140-450); Red Blood Cells 3.94 10^6/uL (4.0-5.20); Red Cell Distribution Width 15.6 % (11.8-14.3); White Blood Cell 5.3 10^3/uL (4.4-10.8)
--- NOTE | 2024-11-19 12:21 | DVHPNRES ---
Progress Note Date Seen: November 19, 2024 Resident Creating Document: MELISSA LEONARDO RESIDENT Has the PT tested + for MRSA If YES, has PT been informed?: No Medical Necessity Reason Pt with a Central, PICC or Fol: No Subjective Review of Systems Patient seen and examined at the bedside. Currently reporting improvement pain in both lower extremities along with redness, blistering lesions especially on the left leg. vascular surgeon recommended conservative management. Patient reports: Feels better Objective vital signs Vital Sign Date Time Temp Pulse Resp B/P (MAP) Pulse Ox O2 Delivery O2 Flow Rate FiO2 11/19/24 09:00 97.5 62 16 137/65 (89) 96 97.5 11/18/24 20:00 Room Air* 0 21 Total Intake and Output 11/18/24 11/18/24 11/19/24 15:00 23:00 07:00 Intake Total 1000 ml 700 ml Balance 1000 ml 700 ml medications Current Medications Medications Dose Ordered Sig/Romaine Route Start Time Stop Time Status Last Admin Dose Admin Ondansetron HCl 4 mg Q4HP PRN IV 11/17/24 11:45 Enoxaparin Sodium 40 mg BID SC 11/17/24 22:00 11/19/24 09:21 40 MG Morphine Sulfate 2 mg Q4HPRN PRN IV 11/17/24 11:45 11/18/24 09:34 2 MG Piperacillin Sod/ Tazobactam Sod 100 ml @ 25 mls/hr Q8HR IV 11/17/24 14:00 11/19/24 06:17 25 MLS/HR Sodium Chloride 1,000 ml @ 75 mls/hr [id number] IV 11/17/24 11:45 11/18/24 17:18 75 MLS/HR Acetaminophen/ Hydrocodone Bitart 1 tab Q4HP PRN PO 11/17/24 11:45 11/19/24 09:22 1 TAB Acetaminophen 650 mg Q6HP PRN PO 11/17/24 11:45 Hydralazine HCl 10 mg Q6HP PRN IV 11/18/24 08:30 Clindamycin Phosphate 50 ml @ 50 mls/hr Q8HR IV 11/18/24 14:00 11/19/24 05:08 50 MLS/HR Examination Pt is lying on bed General Appearance: Alert, Oriented X3, Cooperative, Moderately distress HEENT: Atraumatic, Mucous membranes moist/pink Respiratory: Clear to auscultation, Normal air movement, No added sounds Cardiovascular: Regular rate, Normal S1, Normal S2, No murmurs Abdominal: Active bowel sounds, Soft, no distention, no tenderness Extremities: swollen, redness, foul-smelling, tenderness, redness or blistering lesions and multiple ulcers more in left leg Skin: described as above Neuro: Normal speech, sensorimotor deficits none Psych/Mental Status: Mental status NL, Mood NL Nurse was there as khari during examination laboratory and microbiology Laboratory Tests 11/19/24 06:00 Test 11/19/24 06:00 Range/Units Serum Glucose 119 H 74-106 mg/dL Microbiology Date/Time Source Procedure Growth Status 11/18/24 10:20 Leg Left Gram Stain Pending Resulted 11/18/24 10:20 Leg Left Wound Culture - Preliminary Resulted Labs and/or images reviewed: Labs reviewed by me, Image(s) reviewed by me Problem List/Assessment/Plan Problem List/Assessment/Plan # Bilateral lower extremity cellulitis # R/o necrotizing fascitis of LLE # Chronic nonhealing wound BLE # severe PAD of LLE # Chronic venous insufficiency and ulcerations. - Arterial Doppler showed left common femoral artery 50-75% stenosis but no significant changes in right lower extremity - wound consult, wound culture - surgical consult recommended wound care with Medihoney and self absorbing bandages to pull off fluid off her skin to allow healing, strict compression therapy, elevate feet - clindamycin and Zosyn - venous scan negative for clots # hypertensive urgency - continuously monitor blood pressure - hydralazine as needed - DASH diet # LASHON likely VMN on CKD 3 - monitor lab for now # morbid obesity with a BMI 53.9 - counseled on lifestyle modifications No GI PPX Lovenox Cardiac diet Goals of care discussed with the patient for more than 29 minutes: Full code status Case discussed with Dr. Mcginnis, patient and nurse Plan discussed with: Patient My Orders My Orders Orders - MELISSA LEONARDO RESIDENT Procedure Category Date Status Time Apply/Change Dressing ALBERTINA 11/18/24 In Process 10:05 * Dietary Consult CONS 11/18/24 Transmitted 13:37 Wound Culture W/ Gs LAURA 11/18/24 In Process 17:42 * Infectious [place]- Dr. ZAVALA 11/19/24 Transmitted Tala Rogers 10:39 Echo 2d Mode Cardiac US 11/19/24 Logged DOP 10:42 MELISSA LEONARDO RESIDENT November 19, 2024 12:21
--- NOTE | 2024-11-19 22:15 | DVHINCON2 ---
Date of service: November 19, 2024 Family History: Chronic obstructive pulmonary disease G8 MOTHER Hypertension G8 FATHER Allergies: Coded Allergies: Lisinopril (Verified Allergy, Severe, 03/22/16) Home Meds Active Scripts Cephalexin (KEFLEX CAPSULE) 250 Mg Cp, 1 CAP PO QID, #40 CAP Prov:NICOLE MIRELES MD 08/05/24 Levofloxacin Hemihydrate (LEVAQUIN 500 MG) 500 Mg Tab, 750 MG PO DAILY for 7 Days, #11 TAB Prov:ROSY QUINTERO MD 07/27/24 Reported Medications Nifedipine (Nifedipine ER) 30 Mg Tab, 1 TAB PO DAILY 11/17/24 Losartan Potassium (Losartan Potassium) 25 Mg Tab, 1 TAB PO DAILY, #90 TAB 1 Refill 08/04/24 Naproxen (NAPROSYN TABLET) 500 Mg Tb, 1 TAB PO BID, #60 TAB 1 Refill 08/02/24 Vital Signs Vital Signs Date Time Temp Pulse Resp B/P (MAP) Pulse Ox O2 Delivery O2 Flow Rate FiO2 11/19/24 19:47 16 99 Room Air* 0 21 11/19/24 17:00 97.7 84 160/64 (96) 97.7 Labs/Diagnostic Data Labs Test 11/19/24 06:00 11/18/24 14:00 11/18/24 09:50 11/18/24 06:07 Range/Units White Blood Count 5.3 4.4-10.8 10^3/uL Red Blood Count 3.94 L 4.0-5.20 10^6/uL Hemoglobin 11.5 L 12.2-16.2 g/dL Hematocrit 34.2 L 36.0-46.0 % Mean Corpuscular Volume 86.8 # 80.0-100.0 fL Mean Corpuscular Hemoglobin 29.1 28.0-32.0 pg Mean Corpuscular Hemoglobin Concent 33.6 32.0-36.0 g/dL Red Cell Distribution Width 15.6 H 11.8-14.3 % Platelet Count 246 140-450 10^3/uL Mean Platelet Volume 8.7 6.9-10.8 fL Neutrophils (%) (Auto) 61.1 37.0-80.0 % Lymphocytes (%) (Auto) 24.5 10.0-50.0 % Monocytes (%) (Auto) 8.2 0.0-12.0 % Eosinophils (%) (Auto) 5.5 0.0-7.0 % Basophils (%) (Auto) 0.7 0.0-2.0 % Neutrophils # (Auto) 3.3 1.6-8.6 10 ^3/uL Lymphocytes # (Auto) 1.3 0.4-5.4 10 ^3/uL Monocytes # (Auto) 0.4 0-1.3 10 ^3/uL Eosinophils # (Auto) 0.3 0-0.8 10 ^3/uL Basophils # (Auto) 0 0-0.2 10 ^3/uL Nucleated Red Blood Cells 0.0 % Sodium Level 139 136-145 mmol/L Potassium Level 4.3 3.5-5.1 mmol/L Chloride Level 102 98-107 mmol/L Carbon Dioxide Level 30 20-31 mmol/L Anion Gap 7 5-15 Blood Urea Nitrogen 21 9-23 mg/dL Creatinine 1.09 H 0.550-1.02 mg/dL Glomerular Filtration Rate Calc 56 >90 mL/min BUN/Creatinine Ratio 19.3 10.0-20.0 Serum Glucose 119 H 74-106 mg/dL Calcium Level 9.9 8.7-10.4 mg/dL Urine Color Light-yellow Yellow Urine Clarity Clear Clear Urine pH 5.0 5.0-9.0 Urine Specific [place] 1.017 1.001-1.035 Urine Protein Negative Negative Urine Ketones Negative Negative Urine Blood Negative Negative /uL Urine Nitrite Negative Negative Urine Bilirubin Negative Negative Urine Urobilinogen Normal Negative mg/dL Urine Leukocyte Esterase Negative Negative /uL Urine RBC 2 0 - 4 /hpf Urine Microscopic WBC 2 0-5 /HPF Urine Squamous Epithelial Cells Few <5 /hpf Urine Bacteria None seen None Seen /hpf Urine Mucus Few None Seen Urine Yeast (Budding) Loaded None Seen /hpf Urine Glucose Normal Normal mg/dL Urine Opiates Screen Pos NEGATIVE Urine Fentanyl Screen Neg NEGATIVE Urine Barbiturates Screen Neg NEGATIVE Urine Phencyclidine Screen Neg NEGATIVE Urine Amphetamines Screen Neg NEGATIVE Urine Benzodiazepines Screen Neg NEGATIVE Urine Cocaine Screen Neg NEGATIVE Urine Cannabinoids Screen Neg NEGATIVE Prothrombin Time 10.3 9.3-11.8 sec Prothrombin Time INR 0.97 0.9-1.15 Activated Partial Thromboplast Time 27.9 24.5-34.5 SEC Magnesium Level 2.2 1.6-2.6 mg/dL Total Bilirubin 0.6 0.2-1.0 mg/dL Aspartate Amino Transferase (AST) 12 L 13-40 U/L Alanine Aminotransferase (ALT) 16 7-40 U/L Alkaline Phosphatase 89 46-116 U/L Total Protein 7.0 5.7-8.2 g/dL Albumin 4.0 3.2-4.8 g/dL Vitamin B12 Level 288 211-911 pg/mL Test 11/17/24 08:36 Range/Units Hemoglobin A1c 5.8 H <5.7 % A1C Triglycerides Level 118 < 150 mg/dL Cholesterol Level 149 < 200 mg/dL LDL Cholesterol 93 < 100 mg/dL HDL Cholesterol 44 40-59 mg/dL Thyroid Stimulating Hormone (TSH) 1.36 0.55-4.78 uIU/mL Microbiology Date/Time Source Procedure Growth Status 11/18/24 10:20 Leg Left Gram Stain - Final Resulted 11/18/24 10:20 Leg Left Wound Culture - Preliminary Resulted Problems(with codes): (1) Cellulitis (2) Abnormal finding on CT scan (3) Abdominal pain (4) Cellulitis of left leg (5) Insect bite of right foot (6) Morbid obesity Plan/Recommendation ASSESSMENT AND PLAN ID Problem List: - Chronic and acute bilateral lower extremity cellulitis, unresponsive to oral antibiotics - Bilateral lower extremity volume overload with 4+ weeping edema, purulent drainage - Morbid obesity - Hypertension - Acute kidney injury (LASHON) on chronic kidney disease (CKD) stage 3 - Shortness of breath - 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 Carrasco is a 69 y.o. female with a significant history of morbid obesity, hypertension, CKD stage 3, and recurrent bilateral lower extremity cellulitis. She presents with ongoing, chronic and acute bilateral lower extremity c ellulitis not responsive to prior multiple courses of oral antibiotics. Exam notable for 4+ weeping edema with purulent drainage, non-pitting, in both lower extremities. She has shortness of breath but no fever or chills. Vitals: T 97.7�F, HR 85, RR 22, BP 107/82, SpO? 96% on room air. Work up demonstrates: - WBC 7.2, hemoglobin 12.2, platelets 266 - Basic metabolic panel with LASHON on CKD 3 - Liver panel: AST 12, ALT 616, total bilirubin 0.97 - Imaging: Mild stenosis left common femoral artery; otherwise, no significant arterial or venous disease. CT shows subcutaneous edema in left lower extremity, without fluid collection. - Wound cultures pending; bone culture with gram positive jose; echocardiogram pending. Volume overload and lower extremity edema are likely contributing to poor wound healing and likely worsening cellulitis. LASHON may be multifactorial�volume overload versus possible newly decompensated heart failure versus underlying liver pathology. Recommend TTE (transthoracic echocardiogram) to further evaluate for new-onset heart failure. Consider abdominal ultrasound if clinical suspicion for significant hepatic involvement or cirrhosis remains. Plan: - Hold piperacillin-tazobactam (Zosyn) and clindamycin. Start cefazolin (Ancef) for wound cellulitis. - Aggressive diuresis to address volume overload and associated edema. - Monitor wound closely; recommend frequent wound care and keeping wounds dry. - Follow up on blood cultures and wound cultures. - Pending echocardiogram; consider abdominal ultrasound for evaluation of possible hepatic pathology if needed. - Monitor volume status, renal function, and liver enzymes closely. - Continue to monitor for potential complications of lower extremity cellulitis and volume overload. Isolation Precautions: Standard Assessment and plan was discussed with the patient as written above. Plan is subject to change pending incorporation of new incoming information/diagnostics. Thank you for the consult. ID will continue to follow. Please contact Infectious Disease for any questions or concerns. Manisha Rogers M.D. [facility] Ph: ? History: The patient's chart and medications were reviewed in detail and the patient was seen and examined. History obtained from: patient Ms. Carrasco is a 69 y.o. female with past medical history of chronic bilateral lower extremity cellulitis since September, hypertension, morbid obesity, CKD stage 3, and LASHON, presenting with ongoing bilateral lower extremity edema and purulent drainage. No history of congestive heart failure, liver disease, smoking, alcohol, or IV drug use. Review of Systems: A complete 10-system review of systems was completed and negative except as noted in the HPI or here. - CONSTITUTIONAL: Denies fever, chills, or weight loss. - HEENT: Not discussed. - RESPIRATORY: Reports shortness of breath. Denies cough. - CARDIOVASCULAR: No chest pain or palpitations. - GI: Not discussed. - : Not discussed. - MSK: Not discussed. - SKIN: 4+ weeping bilateral lower extremity edema with purulent drainage. No rash or pruritus elsewhere reported. - NEUROLOGICAL: Not discussed. - PSYCHIATRIC: Not discussed. Past Medical History: - Bilateral lower extremity cellulitis - Chronic kidney disease stage 3 - Acute kidney injury - Morbid obesity - Hypertension Past Surgical History: Not provided in transcript. Home Medications: Not provided in transcript. Allergies: Not provided in transcript. Family History: Not provided in transcript. Social History: No history of tobacco, alcohol, or illicit drug use. No IV drug use. Other details not provided in transcript. Objective: Vital Signs on Arrival: Temperature: 97.7�F Pulse: 85 Respiratory Rate: 22 Blood Pressure: 107/82 SpO?: 96% on room air Pertinent Laboratory Studies: - White blood cell count: 7.2 - Hemoglobin: 12.2 - Platelets: 266 AST: 12 ALT: 616 - Total bilirubin: 0.97 Physical Exam: General: NAD Neck: Supple. No masses. HEENT: PERRL. Normal lids and conjunctiva. Moist mucous membranes. Oropharynx without lesions, exudates or excessive erythema. Normal appearance of the external aspects of the nose and ears. Heart: Regular rhythm, normal rate. No murmur. No lower extremity edema. Lungs: Normal respiratory effort. Clear to auscultation bilaterally. No wheezes. No crackles. Abdomen: Soft. Non-tender. Non-distended. No masses or abdominal hernia. Msk: No digital cyanosis. Normal strength and tone in all 4 limbs Skin: 4+ weeping bilateral lower extremity edema with purulent dr savanah. Neuro: Alert. No facial droop or slurred speech. Extra-ocular movements intact. Sensation intact to soft touch in all 4 limbs. Psych: Appropriate mood. Full affect. Oriented to person, place, time, and situation. Diagnostic Studies: - Imaging: Mild stenosis in left common femoral artery. Otherwise, no significant arterial disease or DVT. - CT extremities: Subcutaneous edema left lower extremity, no drainable collections. - Bone culture: Gram positive jose. - Echocardiogram: Pending. - Blood/wound cultures: Pending. Lines: Not provided in transcript. If further details regarding medication list, allergies, family or surgical history become available, please update accordingly. Plan discussed with: Patient MANISHA ROGERS MD November 19, 2024 22:15
[2024-11-20] VITALS (7 sets, daily range): BP systolic 125–172; BP diastolic 50–77; PULSE 67–89; RESP 16–19; TEMP 97.5–98.1; O2SAT 94–99
[2024-11-20 06:28] LABS: Hemoglobin 8.9 g/dL (12.2-16.2); Mean Corpuscular Hgb Conc. 29.9 g/dL (32.0-36.0); Red Blood Cells 3.44 10^6/uL (4.0-5.20)
[2024-11-20 06:33] LABS: Hematocrit 29.8 % (36.0-46.0); Mean Corpuscular Hemoglobin 25.9 pg (28.0-32.0); Mean Corpuscular Volume 86.7 fL (80.0-100.0); Platelet Count (auto) 416 10^3/uL (140-450); Red Cell Distribution Width 18.5 % (11.8-14.3); White Blood Cell 4.4 10^3/uL (4.4-10.8)
[2024-11-20 06:42] LABS: Chloride 107 mmol/L (98-107); Potassium 4.8 mmol/L (3.5-5.1)
[2024-11-20 06:43] LABS: Anion Gap 11 (5-15)
[2024-11-20 06:48] LABS: BUN/Creatinine Ratio 11.4 (10.0-20.0); Glucose 88 mg/dL (74-106)
[2024-11-20 06:51] LABS: Blood Urea Nitrogen 33 mg/dL (9-23); Calcium 8.1 mg/dL (8.7-10.4); Carbon Dioxide 17 mmol/L (20-31); Sodium 135 mmol/L (136-145)
[2024-11-20 06:58] LABS: Basophils % (manual) 0 (0.0-2.0); Blast Cells 0; Promyelocytes % 0; Reactive Lymphocytes 0
[2024-11-20 07:33] LABS: Band Neutrophils % (manual) 2; Eosinophils % (manual) 4 (0-7); Lymphocytes % (manual) 13 (10.0-50.0); Metamyelocytes % 1; Monocytes % (manual) 3 (0-12); Myelocytes % 1
[2024-11-20 07:34] LABS: Platelet Estimate Adequate
--- NOTE | 2024-11-20 10:34 | DVHPNRES ---
Progress Note Date Seen: November 20, 2024 Resident Creating Document: MELISSA LEONARDO RESIDENT Has the PT tested + for MRSA If YES, has PT been informed?: No Medical Necessity Reason Pt with a Central, PICC or Fol: No Subjective Review of Systems Patient seen and examined at the bedside. Patient reported mild improvement in her symptoms except pain. ID consult evaluated the patient advised to continue cefepime. Patient reports: No new complaints Objective vital signs Vital Sign Date Time Temp Pulse Resp B/P (MAP) Pulse Ox O2 Delivery O2 Flow Rate FiO2 11/20/24 07:54 98.0 67 17 155/50 (85) 98 98.0 11/19/24 19:47 Room Air* 0 21 Total Intake and Output 11/19/24 11/19/24 11/20/24 15:00 23:00 07:00 Intake Total 800 ml 1600 ml Balance 800 ml 1600 ml medications Current Medications Medications Dose Ordered Sig/Romaine Route Start Time Stop Time Status Last Admin Dose Admin Ondansetron HCl 4 mg Q4HP PRN IV 11/17/24 11:45 Enoxaparin Sodium 40 mg BID SC 11/17/24 22:00 11/20/24 09:05 40 MG Morphine Sulfate 2 mg Q4HPRN PRN IV 11/17/24 11:45 11/18/24 09:34 2 MG Sodium Chloride 1,000 ml @ 75 mls/hr [id number] IV 11/17/24 11:45 11/20/24 05:58 75 MLS/HR Acetaminophen/ Hydrocodone Bitart 1 tab Q4HP PRN PO 11/17/24 11:45 11/20/24 05:22 1 TAB Acetaminophen 650 mg Q6HP PRN PO 11/17/24 11:45 Hydralazine HCl 10 mg Q6HP PRN IV 11/18/24 08:30 Examination Pt is lying on bed General Appearance: Alert, Oriented X3, Cooperative, Moderately distress HEENT: Atraumatic, Mucous membranes moist/pink Respiratory: Clear to auscultation, Normal air movement, No added sounds Cardiovascular: Regular rate, Normal S1, Normal S2, No murmurs Abdominal: Active bowel sounds, Soft, no distention, no tenderness Extremities: swollen, redness, foul-smelling, tenderness, redness or blistering lesions and multiple ulcers more in left leg Skin: described as above Neuro: Normal speech, sensorimotor deficits none Psych/Mental Status: Mental status NL, Mood NL Nurse was there as sharperone during examination laboratory and microbiology Laboratory Tests 11/20/24 05:53 Test 11/20/24 05:53 Range/Units Serum Glucose 88 74-106 mg/dL Microbiology Date/Time Source Procedure Growth Status 11/18/24 10:20 Leg Left Gram Stain - Final Resulted 11/18/24 10:20 Leg Left Wound Culture - Preliminary Resulted Labs and/or images reviewed: Labs reviewed by me, Image(s) reviewed by me Problem List/Assessment/Plan Problem List/Assessment/Plan # Bilateral lower extremity cellulitis # R/o necrotizing fascitis of LLE # Chronic nonhealing wound BLE # severe PAD of LLE # Chronic venous insufficiency and ulcerations. - Arterial Doppler showed left common femoral artery 50-75% stenosis but no significant changes in right lower extremity - wound consult, wound culture - surgical consult recommended wound care with Medihoney and self absorbing bandages to pull off fluid off her skin to allow healing, strict compression therapy, elevate feet - Hold piperacillin-tazobactam (Zosyn) and clindamycin. Start cefazolin (Ancef) for wound cellulitis. - Monitor wound closely; recommend frequent wound care and keeping wounds dry. - venous scan negative for clots - Pending echocardiogram # hypertensive urgency - continuously monitor blood pressure - hydralazine as needed - DASH diet # LASHON likely VMN on CKD 3 - monitor lab for now # morbid obesity with a BMI 53.9 - counseled on lifestyle modifications No GI PPX Lovenox Cardiac diet Goals of care discussed with the patient for more than 29 minutes: Full code status Case discussed with Dr. Mcginnis, patient and nurse Plan discussed with: Patient My Orders My Orders Orders - MELISSA LEONARDO RESIDENT Procedure Category Date Status Time * Infectious [place]- CONS 11/19/24 Transmitted Tala Rogers 10:39 Cefepime 1gm/ 50ml PHA 11/21/24 Logged (Maxipime 1gm/50ml) 10:00 Chest Xray 1 View XY 11/20/24 Logged 10:27 Lactic Acid W/ Reflex LAB 11/20/24 Logged Order 10:27 Basic Metabolic Panel LAB 11/20/24 Logged 14:00 Dietary Evaluation Review Comments: encourage wt management and tight DM control. Consider Lalo for healing when GFR improves. Expected Outcomes/Goals: Wt loss, healed wounds MELISSA LEONARDO RESIDENT November 20, 2024 10:34
[2024-11-20] MEDS: hydrALAZINE HCL 20 MG/ML VL IV PRN (11:54)
[2024-11-20] MEDS: CEFEPIME 1GM/ 50ML 50 ML IV SCH (11:54)
--- NOTE | 2024-11-20 12:04 | DVH ---
CHEST RADIOGRAPH Indication: SOB Technique: Single frontal view of the chest was obtained Comparison: XY CHEST PORTABLE on DOS: 05/12/23 FINDINGS: The cardiac silhouette is enlarged. The lungs demonstrate bilateral patchy airspace opacities. The pu lmonary vasculature is prominent. There is no pleural effusion.. There is no pneumothorax. IMPRESSION: 1. Cardiomegaly with pulmonary vascular congestion and bilateral patchy airspace opacities.
[2024-11-20] MEDS: CYANOCOBALAMIN (B-12) 1000 MCG/1 ML VIAL IM ONE (14:45)
--- NOTE | 2024-11-20 16:09 | DVHSR ---
APPROVED REPORT EXAM: LIMITED Two-dimensional and M-mode echocardiogram with Doppler and color Doppler. Blood Pressure: 137/65 mmHg INDICATION rule out structural heart disease RISK FACTORS Obesity: Height: 5'7, Weight: 370 DIMENSIONS LVDd5.1 (3.8-5.7cm)LA (2D)4.4 (1.9-4.0cm)Aortic Root3.0 (2.0-3.7cm) LVDs3.3 (2.5-4.0cm)LA (MM) (1.9-4.0cm)Aortic Cusp Exc1.9 (1.5-2.0cm) EF (%) 60.0 (55-70%)Rt. Atrium (1.9-4.0cm)Asc. Aorta cm IVSd1.0 (0.7-1.1cm)RV (D) (1.8-2.4cm) PWd1.0 (0.7-1.1cm) Mitral Valve MitralMitral Stenosis E wave1.08m/sMV Mean GR.mmHg A wave1.07m/sMV Peak GR.64mmHg E/A ratio1.02D MVAcm2 DECEL [id number] 1/2 [place] Aortic Valve Aortic ValveAortic Stenosis V11.18m/Marquis Mean GR.8mmHg V21.75m/Marquis Peak GR.12mmHg LVOT Diameter2.5 (1.8-2.4cm)Doppler AVA3.31cm2 Pulmonic Valve V21.62m/s Other Information Quality : Technically LimitedRhythm : Technically limited study due to body habitus.patient position. Conclusion Technically difficult study. Sinus rhythm. Left atrial enlargement. Normal valves. EF of 60% with normal RV function. Dopplers unremarkable. No pericardial effusion masses or vegetations.
[2024-11-20] MEDS: ACETAMINOPHEN 325 MG TAB PO PRN (16:52)
[2024-11-20] MEDS: AZITHROMYCIN 500MG/ 250ML 250 ML IV ONE (18:47)
[2024-11-20] MEDS: traZODone HCL 50 MG TAB PO SCH (21:53)
[2024-11-21 01:00] VITALS: BP 129/62; PULSE 88; RESP 20; TEMP 97.7; O2SAT 95
[2024-11-21 04:37] VITALS: BP 130/64; PULSE 76; RESP 18; TEMP 97.6; O2SAT 96
[2024-11-21 05:51] LABS: Basophils # (auto) 0.1 10 ^3/uL (0-0.2); Basophils % (auto) 1.1 % (0.0-2.0); Eosinophils # (auto) 0.3 10 ^3/uL (0-0.8); Eosinophils % (auto) 4.6 % (0.0-7.0); Hematocrit 36.8 % (36.0-46.0); Hemoglobin 12.2 g/dL (12.2-16.2); Lymphocytes # (auto) 1.3 10 ^3/uL (0.4-5.4); Mean Corpuscular Hemoglobin 28.8 pg (28.0-32.0); Mean Corpuscular Hgb Conc. 33.1 g/dL (32.0-36.0); Mean Corpuscular Volume 87.1 fL (80.0-100.0); Monocytes # (auto) 0.6 10 ^3/uL (0-1.3); Monocytes % (auto) 9.9 % (0.0-12.0); Neutrophils # (auto) 3.7 10 ^3/uL (1.6-8.6); Neutrophils % (auto) 62.4 % (37.0-80.0); Platelet Count (auto) 272 10^3/uL (140-450); Red Blood Cells 4.23 10^6/uL (4.0-5.20); Red Cell Distribution Width 15.1 % (11.8-14.3)
[2024-11-21 06:09] LABS: Alanine Aminotransferase 16 U/L (7-40); Albumin 4.2 g/dL (3.2-4.8); Alkaline Phosphatase 76 U/L (46-116); Anion Gap 10 (5-15); Aspartate Aminotransferase 16 U/L (13-40); Bilirubin, Total 0.5 mg/dL (0.2-1.0); Blood Urea Nitrogen 17 mg/dL (9-23); Calcium 9.4 mg/dL (8.7-10.4); Carbon Dioxide 26 mmol/L (20-31); Chloride 103 mmol/L (98-107); Potassium 4.1 mmol/L (3.5-5.1); Sodium 139 mmol/L (136-145); Total Protein 7.1 g/dL (5.7-8.2)
[2024-11-21 06:26] LABS: Glucose 108 mg/dL (74-106)
[2024-11-21 08:00] VITALS: PULSE 87; RESP 19; O2SAT 94
[2024-11-21 08:47] VITALS: BP 155/58; PULSE 75; RESP 18; TEMP 97.9; O2SAT 97
[2024-11-21] MEDS: AZITHROMYCIN 500MG/ 250ML 250 ML IV SCH (10:21)
--- NOTE | 2024-11-21 11:31 | DVHDSRES ---
Discharge Summary Date of Admission Resident Creating Document: MELISSA LEONARDO RESIDENT November 17, 2024 at 11:24 Date of Discharge: November 21, 2024 Admitting Diagnosis Wound check Labs/Diagnostic Data: Laboratory Results Test 11/21/24 05:35 11/20/24 11:26 11/20/24 05:53 11/18/24 14:00 White Blood Count 6.0 10^3/uL (4.4-10.8) Red Blood Count 4.23 10^6/uL (4.0-5.20) Hemoglobin 12.2 g/dL (12.2-16.2) Hematocrit 36.8 % (36.0-46.0) Mean Corpuscular Volume 87.1 fL (80.0-100.0) Mean Corpuscular Hemoglobin 28.8 pg (28.0-32.0) Mean Corpuscular Hemoglobin Concent 33.1 g/dL (32.0-36.0) Red Cell Distribution Width 15.1 % (11.8-14.3) Platelet Count 272 10^3/uL (140-450) Mean Platelet Volume 8.4 fL (6.9-10.8) Neutrophils (%) (Auto) 62.4 % (37.0-80.0) Lymphocytes (%) (Auto) 22.0 % (10.0-50.0) Monocytes (%) (Auto) 9.9 % (0.0-12.0) Eosinophils (%) (Auto) 4.6 % (0.0-7.0) Basophils (%) (Auto) 1.1 % (0.0-2.0) Neutrophils # (Auto) 3.7 10 ^3/uL (1.6-8.6) Lymphocytes # (Auto) 1.3 10 ^3/uL (0.4-5.4) Monocytes # (Auto) 0.6 10 ^3/uL (0-1.3) Eosinophils # (Auto) 0.3 10 ^3/uL (0-0.8) Basophils # (Auto) 0.1 10 ^3/uL (0-0.2) Nucleated Red Blood Cells 0.0 % Sodium Level 139 mmol/L (136-145) Potassium Level 4.1 mmol/L (3.5-5.1) Chloride Level 103 mmol/L (98-107) Carbon Dioxide Level 26 mmol/L (20-31) Anion Gap 10 (5-15) Blood Urea Nitrogen 17 mg/dL (9-23) Creatinine 0.85 mg/dL (0.550-1.02) Glomerular Filtration Rate Calc 75 mL/min (>90) BUN/Creatinine Ratio 20.0 (10.0-20.0) Serum Glucose 108 mg/dL (74-106) Calcium Level 9.4 mg/dL (8.7-10.4) Total Bilirubin 0.5 mg/dL (0.2-1.0) Aspartate Amino Transferase (AST) 16 U/L (13-40) Alanine Aminotransferase (ALT) 16 U/L (7-40) Alkaline Phosphatase 76 U/L (46-116) B-Type Natriuretic Peptide 25.24 pg/mL (0-100) Total Protein 7.1 g/dL (5.7-8.2) Albumin 4.2 g/dL (3.2-4.8) Lactic Acid Level 1.0 mmol/L (0.4-2.0) Differential Total Cells Counted 100.0 (100) Neutrophils % (Manual) 76 (37.0-80.0) Band Neutrophils % (Manual) 2 Lymphocytes % (Manual) 13 (10.0-50.0) Monocytes % (Manual) 3 (0-12) Eosinophils % (Manual) 4 (0-7) Basophils % (Manual) 0 (0.0-2.0) Metamyelocytes % (manual) 1 Myelocytes % (Manual) 1 Promyelocytes % (Manual) 0 Blast Cells % (Manual) 0 Reactive Lymphocytes 0 Platelet Estimate Adequate Urine Color Light-yellow (Yellow) Urine Clarity Clear (Clear) Urine pH 5.0 (5.0-9.0) Urine Specific [place] 1.017 (1.001-1.035) Urine Protein Negative (Negative) Urine Ketones Negative (Negative) Urine Blood Negative /uL (Negative) Urine Nitrite Negative (Negative) Urine Bilirubin Negative (Negative) Urine Urobilinogen Normal mg/dL (Negative) Urine Leukocyte Esterase Negative /uL (Negative) Urine RBC 2 /hpf (0 - 4) Urine Microscopic WBC 2 /HPF (0-5) Urine Squamous Epithelial Cells Few /hpf (<5) Urine Bacteria None seen /hpf (None Seen) Urine Mucus Few (None Seen) Urine Yeast (Budding) Loaded /hpf (None Seen) Urine Glucose Normal mg/dL (Normal) Urine Opiates Screen Pos (NEGATIVE) Urine Fentanyl Screen Neg (NEGATIVE) Urine Barbiturates Screen Neg (NEGATIVE) Urine Phencyclidine Screen Neg (NEGATIVE) Urine Amphetamines Screen Neg (NEGATIVE) Urine Benzodiazepines Screen Neg (NEGATIVE) Urine Cocaine Screen Neg (NEGATIVE) Urine Cannabinoids Screen Neg (NEGATIVE) Test 11/18/24 09:50 11/18/24 06:07 11/17/24 08:36 Prothrombin Time 10.3 sec (9.3-11.8) Prothrombin Time INR 0.97 (0.9-1.15) Activated Partial Thromboplast Time 27.9 SEC (24.5-34.5) Magnesium Level 2.2 mg/dL (1.6-2.6) Vitamin B12 Level 288 pg/mL (211-911) Hemoglobin A1c 5.8 % A1C (<5.7) Triglycerides Level 118 mg/dL (< 150) Cholesterol Level 149 mg/dL (< 200) LDL Cholesterol 93 mg/dL (< 100) HDL Cholesterol 44 mg/dL (40-59) Thyroid Stimulating Hormone (TSH) 1.36 uIU/mL (0.55-4.78) Other Laboratory Tests 11/21/24 05:35 Brief Hx & Hospital Course: Aamir Carrasco is a 69-year-old female with a PMH of HTN, morbid obesity presented to the ED with the chief complaints of chronic bilateral wound check. Patient reported she has objected to trauma in April 2024 and got multiple cuts in her bilateral lower extremities since then patient having recurrent cellulitis of both legs. She had seen her PCP multiple times and was placed on oral antibiotics and under wound care in outpatient setting. Despite of oral antibiotics and wound care treatment wound progressed for which prompted the patient to visit the ER. Denies fever, chills, shortness of breath, chest pain, or other acute symptoms. The patient was admitted with bilateral lower extremity cellulitis, chronic nonhealing wounds, and severe peripheral arterial disease (PAD) of the left lower extremity. Arterial Doppler revealed 50�75% stenosis in the left common femoral artery. Wound cultures were positive for MRSA, and surgical consultation recommended wound care with Medihoney, self-absorbing bandages, strict compression therapy, and elevation of the legs. Piperacillin-tazobactam and clindamycin were discontinued due to worsening kidney function, and cefepime was initiated. The patient was also managed for hypertensive urgency with hydralazine as needed and advised to follow a DASH diet. Venous scan was negative for clots, and echocardiogram showed left atrial enlargement with preserved ejection fraction (60%). Acute kidney injury (LASHON) on chronic kidney disease (CKD) stage 3 was monitored conservatively. The patient, with a BMI of 53.9, was counseled on lifestyle modifications. Infectious Disease (ID) consultation recommended outpatient follow-up and antibiotic adjustment. The patient showed clinical improvement, remained hemodynamically stable, and was deemed fit for discharge. She declined home health services, preferring to attend wound care appointments independently. Discharge instructions included close follow-up with vascular surgery, wound care, primary care, and ID specialists. Medications were prescribed accordingly, and the patient was advised to maintain wound hygiene, adhere to compression therapy, and monitor blood pressure regularly. Pt is lying on bed General Appearance: Alert, Oriented X3, Cooperative, Moderately distress HEENT: Atraumatic, Mucous membranes moist/pink Respiratory: Clear to auscultation, Normal air movement, No added sounds Cardiovascular: Regular rate, Normal S1, Normal S2, No murmurs Abdominal: Active bowel sounds, Soft, no distention, no tenderness Extremities: swollen, redness, foul-smelling, tenderness, redness or blistering lesions and multiple ulcers more in left leg Skin: described as above Neuro: Normal speech, sensorimotor deficits none Psych/Mental Status: Mental status NL, Mood NL Nurse was there as sharperone during examination Operations or Procedures CT CT L TIB FIB WO CONTRAST on DOS: 08/02/24 1. Subcutaneous edema distal left lower extremity. No drainable fluid collections. 2. All CT scans at this medical facility are performed using dose modulation techniques as appropriate to a performed exam including the following: Automated exposure control was utilized; adjustment of the MA and/or KV according to patient size; and use of iterative reconstruction technique. --- US BILAT LOW EXT ART DUPLEX IMPRESSION: 1. Elevated peak systolic velocity in the left common femoral artery corresponding to the 50-75% stenosis category. 2. Left dorsalis pedis artery was not visualized. 3. Abnormal monophasic waveforms in the left posterior tibial artery consistent with peripheral arterial disease. 4. Proximal left SFA was not evaluated. 5. no evidence of significant arterial stenosis or occlusion in the right lower extremity. --- US LT LOWER DVT: negative ---- ECHO onclusion Technically difficult study. Sinus rhythm. Left atrial enlargement. Normal valves. EF of 60% with normal RV function. Dopplers unremarkable. No pericardial effusion masses or vegetations. Condition at Discharge: Stable Final Diagnosis/Problems List # Bilateral lower extremity cellulitis # R/o necrotizing fascitis of LLE # Chronic nonhealing wound BLE # severe PAD of LLE # Chronic venous insufficiency and ulcerations. # hypertensive urgency # ALSHON likely VMN on CKD 3 # morbid obesity with a BMI 53.9 Discharge Disposition: Home Discharge Instruct/Medications Diet: Regular, Consistent carbohydrate, Cardiac 2g Na,low cholest Activity: No Restrictions, As Tolerated Follow Up/Referral: PCP ID and Wound Care for wound Vascular surgeon for PAD Dc clinic Discharge Statement: "Patient was advised to return to the ER or call 911 if any headaches, dizziness, shortness of breath, chest pain, abdominal pain, bleeding, fevers, or worsening of medical condition. Patient was counseled about treatment plan, medications, possible side effects, patient�verbalized understanding. All questions were answered to the best of my ability. This discharge took greater then 30 minutes in planning, reviewing documentation, counseling the patient, and discussing with other team members." ASSESSMENT ASSESSMENT Assessment MELISSA LEONARDO RESIDENT November 21, 2024 11:31
[2024-11-21] MEDS ORDERED: DOXY1CAP58 PO (11:33)
[2024-11-21] MEDS ORDERED: TRAZ-227 PO (11:33)
[2024-11-21] MEDS ORDERED: FURO20TA4 PO (11:33)
[2024-11-21] MEDS: FUROSEMIDE 40 MG/4 ML VIAL IV ONE (11:45)
[2024-11-21 13:00] VITALS: BP 163/72; PULSE 85; RESP 17; TEMP 97.4; O2SAT 98
--- NOTE | 2024-11-21 14:15 | DVHPN2 ---
Consult Progress Note Date Seen: November 20, 2024 Subjective Patient reports: Other (no pain in her legs and not able to abmulate due to heel spurrs that are palpable , drainage is improving , leg edema is down to 3+ ) Objective vital signs Vital Sign Date Time Temp Pulse Resp B/P (MAP) Pulse Ox O2 Delivery O2 Flow Rate FiO2 11/21/24 11:45 155/58 11/21/24 08:47 97.9 75 18 97 97.9 11/21/24 08:00 Room Air* 0 21 Total Intake and Output 11/20/24 11/20/24 11/21/24 15:00 23:00 07:00 Intake Total 500 ml 200 ml Balance 500 ml 200 ml medications Current Medications Medications Dose Ordered Sig/Romaine Route Start Time Stop Time Status Last Admin Dose Admin Ondansetron HCl 4 mg Q4HP PRN IV 11/17/24 11:45 Enoxaparin Sodium 40 mg BID SC 11/17/24 22:00 11/21/24 10:20 40 MG Morphine Sulfate 2 mg Q4HPRN PRN IV 11/17/24 11:45 11/18/24 09:34 2 MG Sodium Chloride 1,000 ml @ 75 mls/hr [id number] IV 11/17/24 11:45 11/20/24 19:45 75 MLS/HR Acetaminophen/ Hydrocodone Bitart 1 tab Q4HP PRN PO 11/17/24 11:45 11/21/24 10:21 1 TAB Acetaminophen 650 mg Q6HP PRN PO 11/17/24 11:45 11/20/24 16:52 650 MG Hydralazine HCl 10 mg Q6HP PRN IV 11/18/24 08:30 11/20/24 11:54 10 MG Cefepime HCl 50 ml @ 12.5 mls/hr DAILY IV 11/20/24 12:00 11/21/24 10:21 12.5 MLS/HR Azithromycin 250 ml @ 125 mls/hr DAILY IV 11/21/24 10:00 11/21/24 10:21 125 MLS/HR Trazodone HCl 50 mg HS PO 11/20/24 22:00 11/20/24 21:53 50 MG Physical Exam: General: NAD Neck: Supple. No masses. HEENT: PERRL. Normal lids and conjunctiva. Moist mucous membranes. Oropharynx without lesions, exudates or excessive erythema. Normal appearance of the external aspects of the nose and ears. Heart: Regular rhythm, normal rate. No murmur. No lower extremity edema. Lungs: Normal respiratory effort. Clear to auscultation bilaterally. No wheezes. No crackles. Abdomen: Soft. Non-tender. Non-distended. No masses or abdominal hernia. Msk: No digital cyanosis. Normal strength and tone in all 4 limbs Skin: 4+ weeping bilateral lower extremity edema with purulent drainage. Neuro: Alert. No facial droop or slurred speech. Extra-ocular movements intact. Sensation intact to soft touch in all 4 limbs. Psych: Appropriate mood. Full affect. Oriented to person, place, time, and situation. laboratory and microbiology Laboratory Tests 11/21/24 05:35 Test 11/21/24 05:35 Range/Units Serum Glucose 108 H 74-106 mg/dL Problem List/Assessment/Plan Problems(with codes): (1) Abnormal finding on CT scan (2) Insect bite of right foot (3) Cellulitis of left leg (4) Abdominal pain (5) Morbid obesity (6) Cellulitis (7) Hypertensive urgency Problem List/Assessment/Plan ASSESSMENT AND PLAN ID Problem List: - Chronic and acute bilateral lower extremity cellulitis, unresponsive to oral antibiotics - Bilateral lower extremity volume overload with 4+ weeping edema, purulent drainage - Morbid obesity - Hypertension - Acute kidney injury (LASHON) on chronic kidney disease (CKD) stage 3 - Shortness of breath - 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 Carrasco is a 69 y.o. female with a significant history of morbid obesity, hypertension, CKD stage 3, and recurrent bilateral lower extremity cellulitis. She presents with ongoing, chronic and acute bilateral lower extremity cellulitis not responsive to prior multiple courses of oral antibiotics. Exam notable for 4+ weeping edema with purulent drainage, non-pitting, in both lower extremities. She has shortness of breath but no fever or chills. Vitals: T 97.7�F, HR 85, RR 22, BP 107/82, SpO? 96% on room air. Work up demonstrates: - WBC 7.2, hemoglobin 12.2, platelets 266 - Basic metabolic panel with LASHON on CKD 3 - Liver panel: AST 12, ALT 616, total bilirubin 0.97 - Imaging: Mild stenosis left common femoral artery; otherwise, no significant arterial or venous disease. CT shows subcutaneous edema in left lower extremity, without fluid collection. - Wound cultures pending; bone culture with gram positive jose; echocardiogram pending. Volume overload and lower extremity edema are likely contributing to poor wound healing and likely worsening cellulitis. LASHON may be multifactorial�volume overload versus possible newly decompensated heart failure versus underlying liver pathology. Recommend TTE (transthoracic echocardiogram) to further evaluate for new-onset heart failure. Consider abdominal ultrasound if clinical suspicion for significant hepatic involvement or cirrhosis remains. 11/20: chest xray shows cardiomegaly with pulmonary vacular congestion , bilateral patchy airspace disease . ECG shows ejection fraction of 60% with normal RV function , suspect component of temporary systolic heart failure in patients diagnosis Plan: - Hold piperacillin-tazobactam (Zosyn) and clindamycin. - Continue cefazolin (Ancef) for wound cellulitis. - Aggressive diuresis to address volume overload and associated edema. - Monitor wound closely; recommend frequent wound care and keeping wounds dry. - Follow up on blood cultures and wound cultures. - Pending echocardiogram; consider abdominal ultrasound for evaluation of possible hepatic pathology if needed. - Monitor volume status, renal function, and liver enzymes closely. - Continue to monitor for potential complications of lower extremity cellulitis and volume overload. Isolation Precautions: Standard Plan discussed with: Other Dietary Evaluation Review Comments: encourage wt management and tight DM control. Consider Lalo for healing when GFR improves. Expected Outcomes/Goals: Wt loss, healed wounds MANISHA ZARATE MD November 21, 2024 14:15
--- NOTE | 2024-11-22 22:10 | DVHPN2 ---
Consult Progress Note Objective vital signs Vital Sign Date Time Temp Pulse Resp B/P (MAP) Pulse Ox O2 Delivery O2 Flow Rate FiO2 11/21/24 13:00 97.4 85 17 163/72 (102) 98 97.4 11/21/24 08:00 Room Air* 0 21 Total Intake and Output 11/21/24 11/21/24 11/22/24 15:00 23:00 07:00 Intake Total 250 ml Balance 250 ml laboratory and microbiology Laboratory Tests 11/21/24 05:35 Test 11/21/24 05:35 Range/Units Serum Glucose 108 H 74-106 mg/dL Problem List/Assessment/Plan Problem List/Assessment/Plan ASSESSMENT AND PLAN ID Problem List: - Chronic and acute bilateral lower extremity cellulitis, unresponsive to oral antibiotics - Bilateral lower extremity volume overload with 4+ weeping edema, purulent drainage - Morbid obesity - Hypertension - Acute kidney injury (LASHON) on chronic kidney disease (CKD) stage 3 - Shortness of breath - 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 Carrasco is a 69 y.o. female with a significant history of morbid obesity, hypertension, CKD stage 3, and recurrent bilateral lower extremity cellulitis. She presents with ongoing, chronic and acute bilateral lower extremity cellulitis not responsive to prior multiple courses of oral antibiotics. Exam notable for 4+ weeping edema with purulent drainage, non-pitting, in both lower extremities. She has shortness of breath but no fever or chills. Vitals: T 97.7�F, HR 85, RR 22, BP 107/82, SpO? 96% on room air. Work up demonstrates: - WBC 7.2, hemoglobin 12.2, platelets 266 - Basic metabolic panel with LASHON on CKD 3 - Liver panel: AST 12, ALT 616, total bilirubin 0.97 - Imaging: Mild stenosis left common femoral artery; otherwise, no significant arterial or venous disease. CT shows subcutaneous edema in left lower extremity, without fluid collection. - Wound cultures pending; bone culture with gram positive jose; echocardiogram pending. Volume overload and lower extremity edema are likely contributing to poor wound healing and likely worsening cellulitis. LASOHN may be multifactorial�volume overload versus possible newly decompensated heart failure versus underlying liver pathology. Recommend TTE (transthoracic echocardiogram) to further evaluate for new-onset heart failure. Consider abdominal ultrasound if clinical suspicion for significant hepatic involvement or cirrhosis remains. 11/20: chest xray shows cardiomegaly with pulmonary vacular congestion , bilateral patchy airspace disease . ECG shows ejection fraction of 60% with normal RV function , suspect component of temporary systolic heart failure in patients diagnosis Plan: - Hold piperacillin-tazobactam (Zosyn) and clindamycin. - Continue cefazolin (Ancef) for wound cellulitis. - Aggressive diuresis to address volume overload and associated edema. - Monitor wound closely; recommend frequent wound care and keeping wounds dry. - Follow up on blood cultures and wound cultures. - Pending echocardiogram; consider abdominal ultrasound for evaluation of possible hepatic pathology if needed. - Monitor volume status, renal function, and liver enzymes closely. - Continue to monitor for potential complications of lower extremity cellulitis and volume overload. Isolation Precautions: Standard Dietary Evaluation Review Comments: encourage wt management and tight DM control. Consider Lalo for healing when GFR improves. Expected Outcomes/Goals: Wt loss, healed wounds MANISHA ZARATE MD November 22, 2024 22:10
== END 2024-11-21 15:00 | disposition home or self-care (01) | DRG 602 ==
LOC: ER 06:28 → OVERFLOW 11:24 → ER 11:31 → EAST 21:03
PROVIDERS: ADMIT Student in an Organized Health Care Education/Training Program; ATTEND Emergency Medicine
DX: L03.115 Cellulitis of right lower limb (principal); M72.6 Necrotizing fasciitis; N17.0 Acute kidney failure with tubular necrosis; Z68.43 Body mass index [BMI] 50.0-59.9, adult; L03.116 Cellulitis of left lower limb; I73.9 Peripheral vascular disease, unspecified; I12.9 Hypertensive chronic kidney disease with stage 1 through stage 4 chronic kidney disease, or unspecified chronic kidney disease; N18.31 Chronic kidney disease, stage 3a; E66.01 Morbid (severe) obesity due to excess calories; I16.0 Hypertensive urgency; S81.802A Unspecified open wound, left lower leg, initial encounter; S81.801A Unspecified open wound, right lower leg, initial encounter; X58.XXXA Exposure to other specified factors, initial encounter; Y93.89 Activity, other specified; I87.2 Venous insufficiency (chronic) (peripheral); R74.8 Abnormal levels of other serum enzymes; E87.70 Fluid overload, unspecified; Z79.2 Long term (current) use of antibiotics; Z79.899 Other long term (current) drug therapy; Z82.49 Family history of ischemic heart disease and other diseases of the circulatory system; Z82.5 Family history of asthma and other chronic lower respiratory diseases; Z88.8 Allergy status to other drugs, medicaments and biological substances; Y92.89 Other specified places as the place of occurrence of the external cause; Y99.8 Other external cause status
CPT/HCPCS: 36415; 71045; 73700; 80048; 80053; 80061; 80307; 81001; 82607; 83036; 83605; 83735; 83880; 84443; 85007; 85025; 85027; 85610; 85730; 87040; 87077; 87186; 87205; 93306; 93925; 93970; 96365; 96368; 99291; G0378; J2543; J3490

== ENCOUNTER 2024-12-02 20:16 | Inpatient (IN) | payer OTHER, MEDICAID ==
[~2024-12-02] VITALS: Ht 170.2 cm; Wt 153.5 kg
[~2024-12-02 20:16] MED LIST changes: +DOXY1CAP58 PO; +FURO20TA4 PO; +NIFE1TAB36 PO; +TRAZ-227 PO
--- NOTE | 2024-12-02 20:55 | ED.PDOC ---
History of Present Illness(SKN HPI Comments 69 y.o female presents to the ED for an evaluation of bilateral leg wound, worse on left leg. ED with the chief complaints of chronic bilateral wound check. Patient reports wound presented on April 2024 and got multiple cuts in her bilateral lower extremities and since she has been having recurrent cellulitis of both legs. Patient follow up with [place] [facility] wound care clinic, last got wound cleaning was 4 days ago and states she cleaned it today. Patient noticed maggots to the left lower leg with oozing discharge. Patient called the nurse hotline and was told to come into the ED for high level of care. Patient is currently on doxycycline. Patient was recently admitted for cellulitis on 11/17/24 with the following diagnoses below: # Bilateral lower extremity cellulitis # R/o necrotizing fascitis of LLE # Chronic nonhealing wound BLE # severe PAD of LLE # Chronic venous insufficiency and ulcerations. # hypertensive urgency # LASHON likely VMN on CKD 3 # morbid obesity with a BMI 53.9 MRSA Patient was discharged on 11/21/24 with doxycycline prescription. Patient denies any fever, chills. Vitals: Temp: 97.6 F BP: 187/80 HR: 98 SPO2: 95% RA RR: 18 Past medical history: Anxiety, CKD stage 3, severe peripheral arterial disease (PAD) of the left lower extremity, MRSA, cellulitis, and HTN Past surgical history: x 2 HPI: Poor Historian. REVIEW OF SYSTEMS: CONSTITUTIONAL: Denies acute: fever, diaphoresis, chills, generalized weakness. HEAD: Denies acute: headache, photophobia Eyes: Denies acute: Double vision, vision loss, eye pain, eye discharge. EARS: Denies acute: tinnitus, hearing loss, ear discharge, ear pain, THROAT: Denies acute: sore throat, swelling, difficulty swallowing , pain with swallowing, change in voice. NECK: Denies acute: neck pain, neck swelling, stiff neck. HEART: Denies acute : chest pain, palpitations, LUNGS: Denies acute: SOB, wheezing, cough, hemoptysis ABDOMEN: Denies acute: abdominal pain, Nausea, Vomiting, diarrhea, melena , hematemesis, hematochezia SKIN: Denies acute: itchiness. EXTREMITIES: Denies acute: calf pain, numbness, tingling, weakness, denies pain in extremity. Denies acute: Low back pain. Neuro: Denies acute: focal neurological deficit, motor or sensory focal neurological deficit, tremors, seizure like activity, confusion, dizziness, change in mental status, loss of bowel or bladder function, cauda equina like symptoms. : Denies acute: dysuria, hematuria, flank pain, increase in urinary frequency. PSYCH: Denies acute: hallucination, suicidal ideation, homicidal ideation. FEMALE: Denies acute: abnormal vaginal bleeding, foul odor, unusual discharge. PHYSICAL EXAM: General: ----[id number]----acute distress, awake and alert. Head: normocephalic, atraumatic. Neck: supple, trachea is midline, no swelling. Throat: Normal phonation. Eyes:, no erythema, no purulent discharge, no proptosis, no icterus. Heart: regular rate, regular rhythm, no significant murmur appreciated. Lungs: no apparent respiratory distress, Able to speak in full sentences. No wheezing, no rhonchi, no crackles. No stridors Clear to auscultation bilaterally. Abdomen: non tender to palpation, non distended, soft, no guarding, no rebound, + bowel sounds. Morbidly obese Neuro: Awake, Alert, oriented to name, self, situation, follows commands GCS=15. Speech is normal. Skin: no petechia, no purpura, no cyanosis, non-pale, not jaundice. Lower extremities: --one/for bilateral - Pitting edema no deformity, no focal swelling, no calf TTP. Noted chronic wounds in bilateral lower extremities [id number]. Her area of complaint is the left lower extremity. Maggots are noted moving. No active bl eeding. Patient is neurovascularly intact in the affected extremity. Pedal pulses palpable. Sensory and motor are present. Erythema is noted as well. Makes eye contact. moves all four extremities. Face: no apparent facial droop. Ambulating in the ED independently. ED COURSE: Chief Complaint: Wound Check Time Seen by MD: 20:50 Primary Care Provider: LISA History of Present Illness: Nurses Notes, Allergies Allergies: Coded Allergies: Lisinopril (Verified Allergy, Severe, 03/22/16) Home Meds Active Scripts Furosemide (Furosemide) 20 Mg Tab, 20 MG PO DAILY for 30 Days, #30 TAB [facility]/21/24 Doxycycline (Monohydrate) (Doxycycline) 100 Mg Cap, 100 MG PO BID for 14 Days, #28 CAP [facility] 11/21/24 Trazodone Hcl (Trazodone Hcl) 50 Mg Tab, 50 MG PO HSPRN PRN for 15 Days, #15 TAB [facility] 11/21/24 Cephalexin (KEFLEX CAPSULE) 250 Mg Cp, 1 CAP PO QID, #40 CAP Prov:NICOLE MIRELES MD 08/05/24 Levofloxacin Hemihydrate (LEVAQUIN 500 MG) 500 Mg Tab, 750 MG PO DAILY for 7 Days, #11 TAB Prov:ROSY QUINTERO MD 07/27/24 Reported Medications Nifedipine (Nifedipine ER) 30 Mg Tab, 1 TAB PO DAILY 11/17/24 Losartan Potassium (Losartan Potassium) 25 Mg Tab, 1 TAB PO DAILY, #90 TAB 1 Refill 08/04/24 Naproxen (NAPROSYN TABLET) 500 Mg Tb, 1 TAB PO BID, #60 TAB 1 Refill 08/02/24 Information Source: Patient Mode of Arrival: Ambulatory Past Medical History PAST MEDICAL HISTORY: Anxiety, HTN, MRSA Surgical History: GRAIN MIXER History: No Pertinent GRAIN MIXER History Family History Family History: Reviewed,noncontributory to illness, Unknown, Family hx of HTN Social History Smoker: Non-Smoker Alcohol: Denies ETOH Use Drugs: Denies Drug Use Lives In: Home Was a procedure done? Was a procedure done?: No Differential Diagnosis (INTG) Differential Diagnosis: N/A Differential Diagnosis: Cellulitis, Other (Myiasis, necrotizing fasciitis, Ddx include but not limited to cellulitis, abscess, lymphadenitis, lymphangitis, trauma, DVT, venous insufficiency, trauma, r/o septic joint., r/o associated osteomylitis, , deep tissue infection, neoplasm, necrotizing fascitits, hematoma , gout.) X-Ray, Labs, Meds, VS Vital Signs Date Time Temp Pulse Resp B/P (MAP) Pulse Ox O2 Delivery O2 Flow Rate FiO2 12/02/24 20:51 97.6 105 18 187/80 (115) 95 97.6 Lab Test 12/02/24 21:02 Range/Units White Blood Count 7.6 4.4-10.8 10^3/uL Red Blood Count 4.28 4.0-5.20 10^6/uL Hemoglobin 12.5 12.2-16.2 g/dL Hematocrit 37.7 36.0-46.0 % Mean Corpuscular Volume 87.9 80.0-100.0 fL Mean Corpuscular Hemoglobin 29.1 28.0-32.0 pg Mean Corpuscular Hemoglobin Concent 33.1 32.0-36.0 g/dL Red Cell Distribution Width 15.5 H 11.8-14.3 % Platelet Count 235 140-450 10^3/uL Mean Platelet Volume 8.9 6.9-10.8 fL Neutrophils (%) (Auto) 70.1 37.0-80.0 % Lymphocytes (%) (Auto) 16.2 10.0-50.0 % Monocytes (%) (Auto) 7.6 0.0-12.0 % Eosinophils (%) (Auto) 5.5 0.0-7.0 % Basophils (%) (Auto) 0.6 0.0-2.0 % Neutrophils # (Auto) 5.3 1.6-8.6 10 ^3/uL Lymphocytes # (Auto) 1.2 0.4-5.4 10 ^3/uL Monocytes # (Auto) 0.6 0-1.3 10 ^3/uL Eosinophils # (Auto) 0.4 0-0.8 10 ^3/uL Basophils # (Auto) 0 0-0.2 10 ^3/uL Nucleated Red Blood Cells 0.1 % Erythrocyte Sedimentation Rate 48 H 0-20 mm/hr Sodium Level 142 136-145 mmol/L Potassium Level 3.5 3.5-5.1 mmol/L Chloride Level 106 98-107 mmol/L Carbon Dioxide Level 25 20-31 mmol/L Anion Gap 11 5-15 Blood Urea Nitrogen 25 H 9-23 mg/dL Creatinine 1.30 H 0.550-1.02 mg/dL Glomerular Filtration Rate Calc 45 >90 mL/min BUN/Creatinine Ratio 19.2 10.0-20.0 Serum Glucose 145 H 74-106 mg/dL Lactic Acid Level 1.5 0.4-2.0 mmol/L Calcium Level 10.3 8.7-10.4 mg/dL Total Bilirubin 0.4 0.2-1.0 mg/dL Aspartate Amino Transferase (AST) 13 13-40 U/L Alanine Aminotransferase (ALT) 12 7-40 U/L Alkaline Phosphatase 111 46-116 U/L C-Reactive Protein High Sensitivity 2.05 H <1.0 mg/dL B-Type Natriuretic Peptide 13.77 0-100 pg/mL Total Protein 7.5 5.7-8.2 g/dL Albumin 4.4 3.2-4.8 g/dL Time of 1ST Reevaluation: 21:30 Reevaluation 1ST: Unchanged Time of 2ND Reevaluation: 03:09 (As of this minute, CT of the lower extremity report is still pending.) Patient Education/Counseling: Diagnosis, Treatment, Other (need for admission ) Family Education/Counseling: No Family Present Comments Patient presented with the above HPI.---leg wound---workup was initiated. patient was found with the above mentioned diagnosis. the following medications were ordered: please refer to order lists of meds and tests obtained by myself Dr. Sams. Patient ED course and VS have been stabilized. Patient has been reassessed in the ED and remained in a stable condition. Pertinent incidental findings were discussed with the patient and/or family. Patient/family voices understanding and is agreeable with plan. Patient has been observed in the ED adequate length of time to insure improvement/stability. Escalation of care considered: Consideration of escalation to observation or admission Maggots were found on the patient's affected left lower extremity. Patient is already on oral antibiotics at home. Patient was ADMITTED to the medicine team for further evaluation and treatment of their presentation. Antibiotics were initiated. All the reports of any imaging studies that were ordered by myself were reviewed by myself. Departure 1 Departure Time of Disposition: 20:50 Impression: Primary Impression: Cellulitis Additional Impression: Infestation, maggots Disposition: ADMITTED INPATIENT Admit to: Tele Condition: Guarded Discharged With: Self Critical Care Note Critical Care Time?: No I personally scribed for BRITTANI SAMS DO ([email or web address]) on 12/02/24 at 20:55. Electronically submitted by Cynthia Rojas ([facility]). I personally scribed for BRITTANI SAMS DO ([email or web address]) on 12/02/24 at 21:05. Electronically submitted by Cynthia Rojas ([email or web address]). I personally scribed for BRITTANI SAMS DO ([email or web address]) on 12/03/24 at 00:47. Electronically submitted by Sharath Jason ([email or web address]). BRITTANI SAMS DO December 02, 2024 20:55
[2024-12-02 21:18] LABS: Basophils # (auto) 0 10 ^3/uL (0-0.2); Basophils % (auto) 0.6 % (0.0-2.0); Eosinophils # (auto) 0.4 10 ^3/uL (0-0.8); Eosinophils % (auto) 5.5 % (0.0-7.0); Hematocrit 37.7 % (36.0-46.0); Hemoglobin 12.5 g/dL (12.2-16.2); Lymphocytes # (auto) 1.2 10 ^3/uL (0.4-5.4); Lymphocytes % (auto) 16.2 % (10.0-50.0); Mean Corpuscular Hemoglobin 29.1 pg (28.0-32.0); Mean Corpuscular Hgb Conc. 33.1 g/dL (32.0-36.0); Mean Corpuscular Volume 87.9 fL (80.0-100.0); Monocytes # (auto) 0.6 10 ^3/uL (0-1.3); Monocytes % (auto) 7.6 % (0.0-12.0); Neutrophils # (auto) 5.3 10 ^3/uL (1.6-8.6); Neutrophils % (auto) 70.1 % (37.0-80.0); Nucleated Red Blood Cells % 0.1 %; Platelet Count (auto) 235 10^3/uL (140-450); Red Blood Cells 4.28 10^6/uL (4.0-5.20); Red Cell Distribution Width 15.5 % (11.8-14.3); White Blood Cell 7.6 10^3/uL (4.4-10.8)
[2024-12-02 21:34] LABS: Alanine Aminotransferase 12 U/L (7-40); Alkaline Phosphatase 111 U/L (46-116); Anion Gap 11 (5-15); Aspartate Aminotransferase 13 U/L (13-40); BUN/Creatinine Ratio 19.2 (10.0-20.0); Calcium 10.3 mg/dL (8.7-10.4); Carbon Dioxide 25 mmol/L (20-31); Chloride 106 mmol/L (98-107); Sodium 142 mmol/L (136-145); Total Protein 7.5 g/dL (5.7-8.2)
[2024-12-02 21:35] LABS: Albumin 4.4 g/dL (3.2-4.8); Bilirubin, Total 0.4 mg/dL (0.2-1.0)
[2024-12-02 21:42] LABS: Blood Urea Nitrogen 25 mg/dL (9-23); Glucose 145 mg/dL (74-106); Potassium 3.5 mmol/L (3.5-5.1)
--- NOTE | 2024-12-02 21:43 | DVHHP2 ---
Admitting Diagnosis: Admission Date: 12/02/24 Bilateral lower extremity leg wounds History of Present Illness Patient is a 69-year-old female who presents to the emergency department for a bilateral leg wound eval, wound is worse on the left leg. Patient states her wound was present starting on April 2024 and got multiple cuts to the bilateral lower extremities and since she has been having recurrent cellulitis to both legs. Patient follows up with [facility] wound care clinic and got her last wound cleaning 4 days ago and states she also got it cleaned today. Patient reports maggots to her left lower leg with oozing discharge. Patient reports calling the nurse hotline and was told to report to the emergency department for higher level of care. Patient currently on doxycycline. Patient was also recently admitted for cellulitis on 11/17/2024. While in the emergency department the patient was evaluated by the provider, As per provider: Labs, vital signs, and imagining monitored. Patient will be admitted for further evaluation and treatment. I discussed admission with the patient/family and is in agreement to treatment plan Patient Family History: Chronic obstructive pulmonary disease G8 MOTHER Hypertension G8 FATHER Allergies: Coded Allergies: Lisinopril (Verified Allergy, Severe, 03/22/16) Home Meds Active Scripts Furosemide (Furosemide) 20 Mg Tab, 20 MG PO DAILY for 30 Days, #30 TAB Prov:MELISSA LEONARDO RESIDENT 11/21/24 Doxycycline (Monohydrate) (Doxycycline) 100 Mg Cap, 100 MG PO BID for 14 Days, #28 CAP Prov:MELISSA LEONARDO RESIDENT 11/21/24 Trazodone Hcl (Trazodone Hcl) 50 Mg Tab, 50 MG PO HSPRN PRN for 15 Days, #15 TAB Prov:MELISSA LEONARDO RESIDENT 11/21/24 Cephalexin (KEFLEX CAPSULE) 250 Mg Cp, 1 CAP PO QID, #40 CAP Prov:NICOLE MIRELES MD 08/05/24 Levofloxacin Hemihydrate (LEVAQUIN 500 MG) 500 Mg Tab, 750 MG PO DAILY for 7 Days, #11 TAB Prov:ROSY QUINTERO MD 07/27/24 Reported Medications Nifedipine (Nifedipine ER) 30 Mg Tab, 1 TAB PO DAILY 11/17/24 Losartan Potassium (Losartan Potassium) 25 Mg Tab, 1 TAB PO DAILY, #90 TAB 1 Refill 08/04/24 Naproxen (NAPROSYN TABLET) 500 Mg Tb, 1 TAB PO BID, #60 TAB 1 Refill 08/02/24 Current Medications Current Medications Medications (Trade) Dose Ordered Sig/Romaine Route PRN Reason Start Time Stop Time Status Last Admin Acetaminophen/ Hydrocodone Bitart ([place] 5/325MG Tab) 1 tab Q4HP PRN PO MODERATE PAIN (4-6 PAIN SCALE) 12/02/24 21:45 12/03/24 02:06 Ondansetron HCl (Zofran) 4 mg Q4HP PRN IV NAUSEA / VOMITING 12/02/24 21:45 Docusate Sodium (Colace Capsule) 100 mg BIDPRN PRN PO FOR CONSTIPATION 12/02/24 21:45 Acetaminophen (Tylenol Tablet) 650 mg Q6HP PRN PO PAIN SCALE 1-3 OR TEMP>100.4 12/02/24 21:45 Morphine Sulfate 2 mg Q4HPRN PRN IV SEVERE PAIN (7-10 PAIN SCALE) 12/02/24 21:45 Enoxaparin Sodium (Lovenox) 40 mg DAILY SC 12/03/24 10:00 Nitroglycerin (Ntrostat Sublingual) 0.4 mg Q5MINP PRN SL FOR CHEST PAIN 12/02/24 21:45 Morphine Sulfate 2 mg Q30M PRN IV FOR CHEST PAIN 12/02/24 21:45 Piperacillin Sod/ Tazobactam Sod 100 ml @ 100 mls/hr Q8HR IV 12/03/24 06:00 Vancomycin HCl 0 ml @ 0 mls/hr UD IV 12/02/24 21:45 Furosemide (Lasix Tablet) 20 mg DAILY PO 12/03/24 10:00 Losartan Potassium (Cozaar Tablet) 25 mg DAILY PO 12/03/24 10:00 Nifedipine (Procardia Xl (Time-Release)) 30 mg DAILY PO 12/03/24 10:00 Trazodone HCl (Desyrel) 50 mg HSPRN PRN PO FOR INSOMNIA 12/02/24 21:45 Hydralazine HCl (Apresoline Injection) 10 mg Q6HP PRN IV SBP>160 12/03/24 08:00 Sodium Chloride 1,000 ml @ 50 mls/hr Q20H IV 12/03/24 12:45 Famotidine (Pepcid Tablet) 20 mg DAILY PO 12/04/24 10:00 Vancomycin HCl 200 ml @ 200 mls/hr Q16H IV 12/03/24 18:00 12/03/24 19:44 Review of Systems Constitutional: denies chills, denies fever, denies malaise Eyes: denies eye pain, denies vision change ENT: denies ear pain, denies headache, denies nasal congestion, denies painful swallowing, denies voice change Cardiovascular: denies chest pain, denies edema, denies orthopnea, denies palpitations, denies paroxysmal nocturnal dyspnea Respiratory: denies cough, denies shortness of breath Gastrointestinal: denies constipation, denies diarrhea, denies nausea, denies vomiting Genitourinary: denies dysuria, denies frequent urination, denies urethral discharge Musculoskeletal: denies back pain, denies joint pain, denies muscle pain Skin: denies bruising, denies itching, denies rash Neurological: denies focal weakness, denies headache, denies sensory changes Psychiatric: denies anxiety, denies depression Endocrine: denies polydipsia, denies polyuria Hematologic/Lymphatic: denies easy bleeding, denies easy bruising, denies enlarged lymph nodes Allergic/Immunologic: denies allergy, denies hives Vital Signs Vital Signs Date Time Temp Pulse Resp B/P (MAP) Pulse Ox O2 Delivery O2 Flow Rate FiO2 12/03/24 19:44 90 18 152/85 (107) 97 12/03/24 14:43 97.4 97.4 12/03/24 07:36 Room Air* 0 21 Physical Exam General Appearance: alert, no distress HEENT: EOMI, PERRLA, normal external inspect of ears, no icterus, no nasal drainage Neck: no carotid bruit, no jugular venous distention (JVD), no lymphadenopathy Chest: normal thorax Respiratory: clear to auscultation, normal air movement Cardiovascular: regular rate and rhythm, no diastolic murmur, no jugular venous distention (JVD), no rub, no systolic murmur Abdominal: soft, no hepatomegaly, no mass, no splenomegaly, no tenderness Genitourinary: grossly normal external Musculoskeletal: no joint tenderness, no swelling Extremities: normal pulses, no calf tenderness, no clubbing, no cyanosis, no edema Skin: no bruising, no jaundice, no rash Neurological: alert, No focal deficit Results Labs Test 12/03/24 08:40 12/03/24 06:21 12/02/24 21:50 12/02/24 21:02 Range/Units White Blood Count 7.2 4.4-10.8 10^3/uL Red Blood Count 4.40 4.0-5.20 10^6/uL Hemoglobin 12.8 12.2-16.2 g/dL Hematocrit 39.0 36.0-46.0 % Mean Corpuscular Volume 88.5 80.0-100.0 fL Mean Corpuscular Hemoglobin 29.2 28.0-32.0 pg Mean Corpuscular Hemoglobin Concent 33.0 32.0-36.0 g/dL Red Cell Distribution Width 15.1 H 11.8-14.3 % Platelet Count 246 140-450 10^3/uL Mean Platelet Volume 9.0 6.9-10.8 fL Neutrophils (%) (Auto) 66.1 37.0-80.0 % Lymphocytes (%) (Auto) 19.5 10.0-50.0 % Monocytes (%) (Auto) 7.8 0.0-12.0 % Eosinophils (%) (Auto) 5.8 0.0-7.0 % Basophils (%) (Auto) 0.8 0.0-2.0 % Neutrophils # (Auto) 4.7 1.6-8.6 10 ^3/uL Lymphocytes # (Auto) 1.4 0.4-5.4 10 ^3/uL Monocytes # (Auto) 0.6 0-1.3 10 ^3/uL Eosinophils # (Auto) 0.4 0-0.8 10 ^3/uL Basophils # (Auto) 0.1 0-0.2 10 ^3/uL Nucleated Red Blood Cells 0.1 % Sodium Level 140 136-145 mmol/L Potassium Level 3.7 3.5-5.1 mmol/L Chloride Level 103 98-107 mmol/L Carbon Dioxide Level 25 20-31 mmol/L Anion Gap 12 5-15 Blood Urea Nitrogen 23 9-23 mg/dL Creatinine 1.26 H 0.550-1.02 mg/dL Glomerular Filtration Rate Calc 47 >90 mL/min BUN/Creatinine Ratio 18.3 10.0-20.0 Serum Glucose 117 H 74-106 mg/dL Calcium Level 10.3 8.7-10.4 mg/dL Total Bilirubin 0.6 0.2-1.0 mg/dL Aspartate Amino Transferase (AST) 14 13-40 U/L Alanine Aminotransferase (ALT) 14 7-40 U/L Alkaline Phosphatase 98 46-116 U/L Total Protein 7.4 5.7-8.2 g/dL Albumin 4.3 3.2-4.8 g/dL Urine Color Light-yellow Yellow Urine Clarity Clear Clear Urine pH 5.5 5.0-9.0 Urine Specific [place] 1.015 1.001-1.035 Urine Protein Negative Negative Urine Ketones Negative Negative Urine Blood Trace H Negative /uL Urine Nitrite Negative Negative Urine Bilirubin Negative Negative Urine Urobilinogen Normal Negative mg/dL Urine Leukocyte Esterase Negative Negative /uL Urine RBC 1 0 - 4 /hpf Urine Microscopic WBC 3 0-5 /HPF Urine Squamous Epithelial Cells Few <5 /hpf Urine Bacteria Few H None Seen /hpf Urine Glucose Normal Normal mg/dL Erythrocyte Sedimentation Rate 48 H 0-20 mm/hr Lactic Acid Level 1.5 0.4-2.0 mmol/L C-Reactive Protein High Sensitivity 2.05 H <1.0 mg/dL B-Type Natriuretic Peptide 13.77 0-100 pg/mL Plan 1. PAD Monitor 2. Bilateral lower extremity cellulitis Monitor, IV abx, ID consult, would care consult 3. Hypertensive Urgency Monitor, antihypertensives 4. Morbid Obesity Monitor, PPI 5. LASHON, likely VMN on CKD3 Monitor, DVT prophylaxis 6. Morbid Obesity, BMI 53.9 Monitor 7. Maggot infestation Monitor, would care consult, surgical consult Plan discussed with: Patient, Other CATARINO ORTIZ NP December 02, 2024 21:43
[2024-12-02 21:44] LABS: CRP High Sensitivity 2.05 mg/dL (<1.0)
[2024-12-02] MEDS ORDERED: NITROGLYCERIN 0.4 MG SL TAB SL PRN (21:45)
[2024-12-02] MEDS ORDERED: traZODone HCL 50 MG TAB PO PRN (21:45)
[2024-12-02] MEDS ORDERED: MORPHINE SULFATE INJ 2 MG/ml SYRG IV PRN ×2 (21:45)
[2024-12-02] MEDS ORDERED: ONDANSETRON HCL 4 MG/2 ML VIAL IV PRN (21:45)
[2024-12-02] MEDS ORDERED: DOCUSATE SOD 100 MG CAP PO PRN (21:45)
[2024-12-02] MEDS ORDERED: VANCOMYCIN PER PHARMACY 0 MG IV SCH (21:45)
[2024-12-02 22:06] LABS: Erythrocyte Sedimentation Rate 48 mm/hr (0-20)
[2024-12-02 22:23] LABS: Urine Bacteria FEW /hpf (None Seen); Urine Blood TRACE /uL (Negative); Urine Clarity Clear (Clear); Urine Color Light-Yellow (Yellow); Urine Protein, UAD Negative (Negative); Urine Specific Gravity 1.015 (1.001-1.035); Urine Squamous Epithelial Cell FEW /hpf (<5); Urine Urobilinogen Normal (Negative); Urine WBC 3 /HPF (0-5); Urine pH 5.5 (5.0-9.0)
[2024-12-03] MEDS: IOHEXOL 300 MG/ML 100ML BOTTLE IJ ONE (00:04)
[2024-12-03] MEDS: VANCOMYCIN 1GM/200ML PM 250 ML IV ONE ×2 (02:05)
[2024-12-03] MEDS: HYDROcodone-ACET 5/325MG TAB PO PRN (02:06)
--- NOTE | 2024-12-03 03:39 | DVH ---
Examination: LE1CR CLINICAL INDICATION: infected wound COMPARISON: None. CONTRAST USED: Intravenous. TECHNIQUE: Computed tomographic scan of the leg was performed. The CT scan was conducted according t o ALARA (As Low as Reasonably Achievable) principles, with multiplanar reconstructions obtained. FINDINGS: The femur, tibia, fibula and patella appear normal. No evidence of soft tissue collection / hematoma seen. There is no joint effusion. No subluxation or dislocation is seen. No evidence of abnormal soft tissue calcification. Few subcentimeter to enlarged left inguinal lymph nodes are seen, largest measuring 34 x 20 mm. Moderate subcutaneous oedema is seen involving the leg and foot. Mild cutaeneous thickening is seen along the medial and posterior aspect of the thigh with adjacent f at stranding. No obvious abscess is seen. IMPRESSION: 1. Few subcentimeter to enlarged left inguinal lymph nodes. 2. Moderate subcutaneous edema is seen involving the leg and foot. 3. Mild cutaeneous thickening is seen along the medial and posterior aspect of the thigh with adjace nt fat stranding. 4. No obvious abscess is seen. Electronically Signed 12/03/2024 03:38 Thanh Fitzgerald
[2024-12-03] MEDS: PIPERACILLIN-TAZOB 3.375GM 100 ML IV ONE (03:42)
[2024-12-03] MEDS: PIPERACILLIN-TAZOB 3.375GM 100 ML IV SCH (05:14)
[2024-12-03 07:04] LABS: Alanine Aminotransferase 14 U/L (7-40); Albumin 4.3 g/dL (3.2-4.8); Alkaline Phosphatase 98 U/L (46-116); Anion Gap 12 (5-15); Aspartate Aminotransferase 14 U/L (13-40); BUN/Creatinine Ratio 18.3 (10.0-20.0); Blood Urea Nitrogen 23 mg/dL (9-23); Carbon Dioxide 25 mmol/L (20-31); Chloride 103 mmol/L (98-107); Potassium 3.7 mmol/L (3.5-5.1); Sodium 140 mmol/L (136-145); Total Protein 7.4 g/dL (5.7-8.2)
[2024-12-03 07:05] LABS: Bilirubin, Total 0.6 mg/dL (0.2-1.0); Calcium 10.3 mg/dL (8.7-10.4)
[2024-12-03 07:07] LABS: Glucose 117 mg/dL (74-106)
[2024-12-03 07:36] VITALS: PULSE 87; RESP 16; O2SAT 96
[2024-12-03] MEDS ORDERED: hydrALAZINE HCL 20 MG/ML VL IV PRN (08:00)
[2024-12-03 08:56] LABS: Basophils # (auto) 0.1 10 ^3/uL (0-0.2); Basophils % (auto) 0.8 % (0.0-2.0); Eosinophils # (auto) 0.4 10 ^3/uL (0-0.8); Eosinophils % (auto) 5.8 % (0.0-7.0); Hemoglobin 12.8 g/dL (12.2-16.2); Lymphocytes # (auto) 1.4 10 ^3/uL (0.4-5.4); Lymphocytes % (auto) 19.5 % (10.0-50.0); Mean Corpuscular Hemoglobin 29.2 pg (28.0-32.0); Mean Corpuscular Volume 88.5 fL (80.0-100.0); Monocytes # (auto) 0.6 10 ^3/uL (0-1.3); Monocytes % (auto) 7.8 % (0.0-12.0); Neutrophils # (auto) 4.7 10 ^3/uL (1.6-8.6); Neutrophils % (auto) 66.1 % (37.0-80.0); Nucleated Red Blood Cells % 0.1 %; Platelet Count (auto) 246 10^3/uL (140-450); Red Cell Distribution Width 15.1 % (11.8-14.3); White Blood Cell 7.2 10^3/uL (4.4-10.8)
[2024-12-03] MEDS: NIFEdipine ER 30 MG TAB PO SCH (10:00)
[2024-12-03] MEDS: ENOXAPARIN SOD 40 MG/0.4 ML SYRINGE SC SCH (10:00)
[2024-12-03] MEDS: FUROSEMIDE 20 MG TAB PO SCH (10:00)
[2024-12-03] MEDS: LOSARTAN POTASSIUM 25 MG TAB PO SCH (10:00)
[2024-12-03] MEDS: SODIUM CHLORIDE 0.9% 1,000 ML IV SCH (12:45)
[2024-12-03] MEDS: VANCOMYCIN 1GM/200ML PM 200 ML IV SCH (19:44)
--- NOTE | 2024-12-03 20:15 | DVHPN2 ---
Progress Note - Dictate Date Seen: December 03, 2024 Medical Necessity Reason Pt with a Central, PICC or Fol: No vital signs Vital Sign Date Time Temp Pulse Resp B/P (MAP) Pulse Ox O2 Delivery O2 Flow Rate FiO2 12/03/24 19:44 90 18 152/85 (107) 97 12/03/24 14:43 97.4 97.4 12/03/24 07:36 Room Air* 0 21 medications Current Medications Medications Dose Ordered Sig/Romaine Route Start Time Stop Time Status Last Admin Dose Admin Acetaminophen/ Hydrocodone Bitart 1 tab Q4HP PRN PO 12/02/24 21:45 12/03/24 02:06 Ondansetron HCl 4 mg Q4HP PRN IV 12/02/24 21:45 Docusate Sodium 100 mg BIDPRN PRN PO 12/02/24 21:45 Acetaminophen 650 mg Q6HP PRN PO 12/02/24 21:45 Morphine Sulfate 2 mg Q4HPRN PRN IV 12/02/24 21:45 Enoxaparin Sodium 40 mg DAILY SC 12/03/24 10:00 Nitroglycerin 0.4 mg Q5MINP PRN SL 12/02/24 21:45 Morphine Sulfate 2 mg Q30M PRN IV 12/02/24 21:45 Piperacillin Sod/ Tazobactam Sod 100 ml @ 100 mls/hr Q8HR IV 12/03/24 06:00 Vancomycin HCl 0 ml @ 0 mls/hr UD IV 12/02/24 21:45 Furosemide 20 mg DAILY PO 12/03/24 10:00 Losartan Potassium 25 mg DAILY PO 12/03/24 10:00 Nifedipine 30 mg DAILY PO 12/03/24 10:00 Trazodone HCl 50 mg HSPRN PRN PO 12/02/24 21:45 Hydralazine HCl 10 mg Q6HP PRN IV 12/03/24 08:00 Sodium Chloride 1,000 ml @ 50 mls/hr Q20H IV 12/03/24 12:45 Famotidine 20 mg DAILY PO 12/04/24 10:00 Vancomycin HCl 200 ml @ 200 mls/hr Q16H IV 12/03/24 18:00 12/03/24 19:44 objective General Appearance: alert, no distress HEENT: EOMI, PERRLA, normal external inspect of ears, no icterus, no nasal drainage Neck: no carotid bruit, no jugular venous distention (JVD), no lymphadenopathy Chest: normal thorax Respiratory: clear to auscultation, normal air movement Cardiovascular: regular rate and rhythm, no diastolic murmur, no jugular venous distention (JVD), no rub, no systolic murmur Abdominal: soft, no hepatomegaly, no mass, no splenomegaly, no tenderness Genitourinary: grossly normal external Musculoskeletal: no joint tenderness, no swelling Extremities: normal pulses, no calf tenderness, no clubbing, no cyanosis, no edema Skin: no bruising, no jaundice, no rash Neurological: alert, No focal deficit laboratory and microbiology Laboratory Tests 12/03/24 08:40 12/03/24 06:21 Test 12/03/24 06:21 Range/Units Serum Glucose 117 H 74-106 mg/dL Problem List 1. PAD Monitor 2. Bilateral lower extremity cellulitis Monitor, IV abx, ID consult, would care consult 3. Hypertensive Urgency Monitor, antihypertensives 4. Morbid Obesity Monitor, PPI 5. LASHON, likely VMN on CKD3 Monitor, DVT prophylaxis 6. Morbid Obesity, BMI 53.9 Monitor 7. Maggot infestation Monitor, would care consult, surgical consult Assessment/Plan Subjective: Patient is awake and alert. Objective: Patient was admitted for worsening wounds to her left lower extremity. Patient has severe PAD and patient has underlying cellulitis to her bilateral lower extremity. Patient also had hypertensive urgency. Patient was started on vancomycin and zosyn. Patient was found to have a maggot infestation to her left lower extremity. Plan: Surgical evaluation. Wound care consult. Continue antibiotics. Monitor daily labs. Continue antihypertensives. Plan discussed with: Patient, Other CATARINO ORTIZ NP December 03, 2024 20:15
[2024-12-04] MEDS: ACETAMINOPHEN 325 MG TAB PO PRN (02:58)
[2024-12-04 05:00] VITALS: BP 151/79; PULSE 65; RESP 18; TEMP 97.3; O2SAT 97
[2024-12-04 05:26] VITALS: BP 151/79; PULSE 65; RESP 18; TEMP 97.3; O2SAT 97
[2024-12-04 08:00] VITALS: PULSE 64; PULSE 69; RESP 18; O2SAT 99
[2024-12-04 09:00] VITALS: BP 119/59; PULSE 64; RESP 18; TEMP 97.6; O2SAT 99
[2024-12-04] MEDS: FAMOTIDINE 20 MG TAB PO SCH (09:26)
--- NOTE | 2024-12-04 10:38 | DVHPN2 ---
Progress Note - Dictate Medical Necessity Reason Pt with a Central, PICC or Fol: No vital signs Vital Sign Date Time Temp Pulse Resp B/P (MAP) Pulse Ox O2 Delivery O2 Flow Rate FiO2 12/04/24 10:00 119/59 12/04/24 09:00 97.6 64 18 99 97.6 12/04/24 05:26 Room Air* 0 21 Total Intake and Output 12/03/24 12/03/24 12/04/24 15:00 23:00 07:00 Intake Total 100 ml Balance 100 ml medications Current Medications Medications Dose Ordered Sig/Romaine Route Start Time Stop Time Status Last Admin Dose Admin Acetaminophen/ Hydrocodone Bitart 1 tab Q4HP PRN PO 12/02/24 21:45 12/04/24 09:27 1 TAB Ondansetron HCl 4 mg Q4HP PRN IV 12/02/24 21:45 Docusate Sodium 100 mg BIDPRN PRN PO 12/02/24 21:45 Acetaminophen 650 mg Q6HP PRN PO 12/02/24 21:45 12/04/24 02:58 650 MG Morphine Sulfate 2 mg Q4HPRN PRN IV 12/02/24 21:45 Enoxaparin Sodium 40 mg DAILY SC 12/03/24 10:00 12/04/24 09:25 40 MG Nitroglycerin 0.4 mg Q5MINP PRN SL 12/02/24 21:45 Morphine Sulfate 2 mg Q30M PRN IV 12/02/24 21:45 Piperacillin Sod/ Tazobactam Sod 100 ml @ 100 mls/hr Q8HR IV 12/03/24 06:00 12/04/24 02:50 100 MLS/HR Vancomycin HCl 0 ml @ 0 mls/hr UD IV 12/02/24 21:45 Furosemide 20 mg DAILY PO 12/03/24 10:00 12/04/24 09:26 20 MG Losartan Potassium 25 mg DAILY PO 12/03/24 10:00 12/04/24 09:27 25 MG Nifedipine 30 mg DAILY PO 12/03/24 10:00 Trazodone HCl 50 mg HSPRN PRN PO 12/02/24 21:45 Hydralazine HCl 10 mg Q6HP PRN IV 12/03/24 08:00 Sodium Chloride 1,000 ml @ 50 mls/hr Q20H IV 12/03/24 12:45 12/04/24 06:40 50 MLS/HR Famotidine 20 mg DAILY PO 12/04/24 10:00 12/04/24 09:26 20 MG Vancomycin HCl 200 ml @ 200 mls/hr Q16H IV 12/03/24 18:00 12/04/24 09:25 200 MLS/HR objective General Appearance: alert, no distress HEENT: EOMI, PERRLA, normal external inspect of ears, no icterus, no nasal drainage Neck: no carotid bruit, no jugular venous distention (JVD), no lymphadenopathy Chest: normal thorax Respiratory: clear to auscultation, normal air movement Cardiovascular: regular rate and rhythm, no diastolic murmur, no jugular venous distention (JVD), no rub, no systolic murmur Abdominal: soft, no hepatomegaly, no mass, no splenomegaly, no tenderness Genitourinary: grossly normal external Musculoskeletal: no joint tenderness, no swelling Extremities: normal pulses, no calf tenderness, no clubbing, no cyanosis, no edema Skin: no bruising, no jaundice, no rash Neurological: alert, No focal deficit laboratory and microbiology Laboratory Tests 12/04/24 04:58 12/03/24 08:40 12/03/24 06:21 Test 12/03/24 06:21 Range/Units Serum Glucose 117 H 74-106 mg/dL Problem List 1. PAD Monitor 2. Bilateral lower extremity cellulitis Monitor, IV abx, ID consult, would care consult 3. Hypertensive Urgency Monitor, antihypertensives 4. Morbid Obesity Monitor, PPI 5. LASHON, likely VMN on CKD3 Monitor, DVT prophylaxis 6. Morbid Obesity, BMI 53.9 Monitor 7. Maggot infestation Monitor, would care consult, surgical consult Assessment/Plan Subjective: Patient is awake and alert. Objective: Patient was admitted for worsening wounds to her left lower extremity. Patient has severe PAD and patient has underlying cellulitis to her bilateral lower extremity. Patient also had hypertensive urgency. Patient was started on vancomycin and zosyn. Patient was found to have a maggot infestation to her left lower extremity. Plan: Surgical evaluation. Wound care consult. Continue antibiotics. Monitor daily labs. Continue antihypertensives. CATARINO ORTIZ NP December 04, 2024 10:38
[2024-12-04] MEDS ORDERED: PERCOT PO (11:16)
[2024-12-04] MEDS ORDERED: LINE1TAB6 PO (11:16)
[2024-12-04] MEDS ORDERED: DOXY100C79 PO (11:16)
[2024-12-04] MEDS ORDERED: NALO4SPR2 (11:17)
--- NOTE | 2024-12-04 11:19 | DVHDS2 ---
Discharge Summary Date of Admission December 02, 2024 at 21:39 Date of Discharge: December 04, 2024 Labs/Diagnostic Data: Laboratory Results Test 12/04/24 04:58 12/03/24 08:40 12/03/24 06:21 12/02/24 21:50 Creatinine 1.25 mg/dL (0.550-1.02) Glomerular Filtration Rate Calc 47 mL/min (>90) White Blood Count 7.2 10^3/uL (4.4-10.8) Red Blood Count 4.40 10^6/uL (4.0-5.20) Hemoglobin 12.8 g/dL (12.2-16.2) Hematocrit 39.0 % (36.0-46.0) Mean Corpuscular Volume 88.5 fL (80.0-100.0) Mean Corpuscular Hemoglobin 29.2 pg (28.0-32.0) Mean Corpuscular Hemoglobin Concent 33.0 g/dL (32.0-36.0) Red Cell Distribution Width 15.1 % (11.8-14.3) Platelet Count 246 10^3/uL (140-450) Mean Platelet Volume 9.0 fL (6.9-10.8) Neutrophils (%) (Auto) 66.1 % (37.0-80.0) Lymphocytes (%) (Auto) 19.5 % (10.0-50.0) Monocytes (%) (Auto) 7.8 % (0.0-12.0) Eosinophils (%) (Auto) 5.8 % (0.0-7.0) Basophils (%) (Auto) 0.8 % (0.0-2.0) Neutrophils # (Auto) 4.7 10 ^3/uL (1.6-8.6) Lymphocytes # (Auto) 1.4 10 ^3/uL (0.4-5.4) Monocytes # (Auto) 0.6 10 ^3/uL (0-1.3) Eosinophils # (Auto) 0.4 10 ^3/uL (0-0.8) Basophils # (Auto) 0.1 10 ^3/uL (0-0.2) Nucleated Red Blood Cells 0.1 % Sodium Level 140 mmol/L (136-145) Potassium Level 3.7 mmol/L (3.5-5.1) Chloride Level 103 mmol/L (98-107) Carbon Dioxide Level 25 mmol/L (20-31) Anion Gap 12 (5-15) Blood Urea Nitrogen 23 mg/dL (9-23) BUN/Creatinine Ratio 18.3 (10.0-20.0) Serum Glucose 117 mg/dL (74-106) Calcium Level 10.3 mg/dL (8.7-10.4) Total Bilirubin 0.6 mg/dL (0.2-1.0) Aspartate Amino Transferase (AST) 14 U/L (13-40) Alanine Aminotransferase (ALT) 14 U/L (7-40) Alkaline Phosphatase 98 U/L (46-116) Total Protein 7.4 g/dL (5.7-8.2) Albumin 4.3 g/dL (3.2-4.8) Urine Color Light-yellow (Yellow) Urine Clarity Clear (Clear) Urine pH 5.5 (5.0-9.0) Urine Specific [place] 1.015 (1.001-1.035) Urine Protein Negative (Negative) Urine Ketones Negative (Negative) Urine Blood Trace /uL (Negative) Urine Nitrite Negative (Negative) Urine Bilirubin Negative (Negative) Urine Urobilinogen Normal mg/dL (Negative) Urine Leukocyte Esterase Negative /uL (Negative) Urine RBC 1 /hpf (0 - 4) Urine Microscopic WBC 3 /HPF (0-5) Urine Squamous Epithelial Cells Few /hpf (<5) Urine Bacteria Few /hpf (None Seen) Urine Glucose Normal mg/dL (Normal) Test 12/02/24 21:02 Erythrocyte Sedimentation Rate 48 mm/hr (0-20) Lactic Acid Level 1.5 mmol/L (0.4-2.0) C-Reactive Protein High Sensitivity 2.05 mg/dL (<1.0) B-Type Natriuretic Peptide 13.77 pg/mL (0-100) Other Laboratory Tests 12/04/24 04:58 12/03/24 08:40 12/03/24 06:21 Brief Hx & Hospital Course: Patient is a 69-year-old female who presents to the emergency department for a bilateral leg wound eval, wound is worse on the left leg. Patient states her wound was present starting on April 2024 and got multiple cuts to the bilateral lower extremities and since she has been having recurrent cellulitis to both legs. Patient follows up with [facility] and got her last wound cleaning 4 days ago and states she also got it cleaned today. Patient reports maggots to her left lower leg with oozing discharge. Patient reports calling the nurse hotline and was told to report to the emergency department for higher level of care. Patient currently on doxycycline. Patient was also recently admitted for cellulitis on 11/17/2024. While in the emergency department the patient was evaluated by the provider, As per provider: Labs, vital signs, and imagining monitored. Patient was admitted on 12/02/2024 for worsening cellulitis to bilateral extremities, worse on the left. Patient was found to have a maggot infestation. Patient had LASHON, which did resolve. Patient had her wounds cleansed by [facility]. Patient was seen by Dr. Ybarra of vascular surgery. He states he will follow-up outpatient. Patient does see [facility] weekly. 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 Transition to oral antibiotics. Patient will discharge home on oral Zyvox and doxycycline. Patient will follow- up with her PCP, Dr. Caban. [facility] was set up for daily wound care. Shell resume weekly wound care at [facility], and shell continue with her outpatient referral with Dr. Ybarra, vascular surgeon. The patient received proper medical treatment and medications. Vital signs, Imaging and Laboratory Work was monitored. All consults recommendations were followed as provided. There were no complaints or new complaints upon discharge, all questions and concerns were answered. Patient was advised to return to the ER or call 911 if any headaches, dizziness, shortness of breath, chest pain, bleeding, fevers, or worsening of medical condition. Patient/Family was counseled about treatment plan, medications, possible side effects, patientverbalized understanding. All questions were answered to the best of my ability. The patient symptoms improved and they are okay to be DC. Condition at Discharge: Good Final Diagnosis/Problems List PAD Bilateral lower extremity cellulitis Hypertensive Urgency Morbid Obesity LASHON, likely VMN on CKD3 Morbid Obesity, BMI 53.9 Discharge Disposition: Home with Health Services Discharge Instruct/Medications Diet: Cardiac 2g Na,low cholest Activity: No Restrictions, As Tolerated Follow Up/Referral: Dr. Zuñiga outpt Continue [facility] weekly wound care for daily wound care Dr. Caban 1 week Discharge Statement: "Patient was advised to return to the ER or call 911 if any headaches, dizziness, shortness of breath, chest pain, abdominal pain, bleeding, fevers, or worsening of medical condition. Patient was counseled about treatment plan, medications, possible side effects, patientverbalized understanding. All questions were answered to the best of my ability. This discharge took greater then 30 minutes in planning, reviewing documentation, counseling the patient, and discussing with other team members." ASSESSMENT ASSESSMENT Assessment Cellulitis BLE, worse on CATARINO [employer] December 04, 2024 11:19
[2024-12-04 13:00] VITALS: BP 124/70; PULSE 69; RESP 18; TEMP 97.8; O2SAT 96
[2024-12-04] MEDS: HYDROmorphone HCL 2 MG/ML VL/or syr IV ONE (14:28)
[2024-12-04 16:50] VITALS: BP 154/77; PULSE 83; RESP 18; TEMP 98.1; O2SAT 100
== END 2024-12-04 19:25 | disposition home or self-care (01) | DRG 602 ==
LOC: ER 20:19 → OVERFLOW 21:39 → TELE-EAST 12-04 05:04
PROVIDERS: ADMIT Nurse Practitioner; ATTEND Nurse Practitioner
DX: L03.115 Cellulitis of right lower limb (principal); N17.0 Acute kidney failure with tubular necrosis; Z68.43 Body mass index [BMI] 50.0-59.9, adult; L03.116 Cellulitis of left lower limb; I16.0 Hypertensive urgency; E66.01 Morbid (severe) obesity due to excess calories; N18.30 Chronic kidney disease, stage 3 unspecified; I73.9 Peripheral vascular disease, unspecified; B87.9 Myiasis, unspecified; I12.9 Hypertensive chronic kidney disease with stage 1 through stage 4 chronic kidney disease, or unspecified chronic kidney disease; F41.9 Anxiety disorder, unspecified; B95.62 Methicillin resistant Staphylococcus aureus infection as the cause of diseases classified elsewhere; Z88.8 Allergy status to other drugs, medicaments and biological substances; Z79.899 Other long term (current) drug therapy; Z79.2 Long term (current) use of antibiotics; Z82.49 Family history of ischemic heart disease and other diseases of the circulatory system
CPT/HCPCS: 36415; 73701; 80053; 81001; 82565; 83605; 83880; 85025; 85652; 86141; G0378; J2543